=== PATIENT | female | born 1965 | race African-American/Black ===

== ENCOUNTER → 2016-06-28 | Outpatient (CLI) | payer OTHER | LOC: CCC 09:07 | DX: R73.03 Prediabetes (principal) | CPT/HCPCS: 36415; 83036 ==

== ENCOUNTER 2016-09-17 09:29 | Emergency (ER) | payer SELFPAY ==
[2016-09-17 09:38] VITALS: BP 126/80
--- NOTE | 2016-09-17 10:04 | ER Document Report ---
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 She does not do to go to work until day after tomorrow. No saddle anesthesia. No radiculopathy. No fever or chills. No IV drug use. No rash. She sees Dr. Salomon about her back. Associated Symptoms: None Exacerbated by: Movement - bending forward Relieved by: Denies Similar symptoms previously: Yes Recently seen / treated by doctor: No - ROS ROS below otherwise negative: Yes Systems Reviewed and Negative: Yes All other systems reviewed and negative - REPRODUCTIVE LMP: merry Reproductive: DENIES: : - DERM Skin Color: Normal Past Medical History - General Information source: Patient - Social History Smoking Status: Unknown if Ever Smoked Frequency of alcohol use: None Drug Abuse: None Lives with: Family Family History: Reviewed & Not Pertinent Patient has suicidal ideation: No Patient has homicidal ideation: No - Past Medical History Cardiac Medical History: Reports: Hx Hypertension Pulmonary Medical History: Reports: Hx Bronchitis Renal/ Medical History: Denies: Hx Peritoneal Dialysis Past Surgical History: Reports: Hx Tubal Ligation - Immunizations Hx Diphtheria, Pertussis, Tetanus Vaccination: Yes Vertical Provider Document - CONSTITUTIONAL Agree With Documented VS: Yes Exam Limitations: No Limitations - INFECTION CONTROL TRAVEL OUTSIDE OF THE [place] IN LAST 30 DAYS: No - HEENT HEENT: Atraumatic, Normal ENT Exam, Normocephalic - NECK Neck: Supple - RESPIRATORY Respiratory: Breath Sounds Normal, No Respiratory Distress O2 Sat by Pulse Oximetry: 98 - CARDIOVASCULAR Cardiovascular: Regular Rate, Regular Rhythm - GI/ABDOMEN Gastrointestinal: Abdomen Soft, Abdomen Non-Tender - MUSCULOSKELETAL/EXTREMETIES Musculoskeletal/Extremeties: MAEW, FROM, Tender - lumbosacral muscles bilateral - NEURO Level of Consciousness: Awake, Alert Motor/Sensory: No Motor Deficit, No Sensory Deficit Deep Tendon Reflexes: 1+ - teresa ankle and patellar - DERM Integumentary: Warm, Dry, No Rash Course - Vital Signs Vital signs: Temp Pulse Resp BP Pulse Ox 97.8 F 78 16 126/80 H 98 09/17/16 09:35 09/17/16 09:35 09/17/16 09:35 09/17/16 09:35 09/17/16 09:35 Discharge - Discharge Clinical Impression: Low back strain Qualifiers: Encounter type: initial encounter Qualified Code(s): S39.012A - Strain of muscle, fascia and tendon of lower back, initial encounter Condition: Good Disposition: HOME, SELF-CARE Instructions: Low Back Pain ([facility]), Muscle Strain ([facility]), Warm Packs ([facility]), Muscle Relaxers ([facility]), Ultram ([facility]), Anti-Inflammatory Medication ([facility]) Additional Instructions: warm compress see your doctor for follow up to er if worse sitting will make it worse Please complete the patient satisfaction survey if you get one, and return it.. If you do not receive a survey, then you can go to the [facility] website, [email or web address] and place your comments about your very good care. Thank you very much. It was a pleasure being your medical provider today. Prescriptions: Ibuprofen [Motrin 800 mg Tablet] 800 mg PO Q8HP PRN #30 tablet PRN Reason: Cyclobenzaprine HCl [Flexeril 10 Mg Tablet] 10 mg PO TIDP PRN #20 tablet PRN Reason: Tramadol HCl [Ultram 50 mg Tablet] 50 mg PO ASDIR PRN #20 tablet PRN Reason: Referrals: JUAN SALOMON MD [Primary Care Provider] - Follow up as needed
[2016-09-17] MEDS ORDERED: IBUPROFEN 800 MG TABLET PO ONE (10:10)
== END 2016-09-17 10:21 | disposition home or self-care (01) ==
LOC: ER 09:29
DX: S39.012A Strain of muscle, fascia and tendon of lower back, initial encounter (principal); X58.XXXA Exposure to other specified factors, initial encounter; I10 Essential (primary) hypertension
CPT/HCPCS: 99283

== ENCOUNTER 2016-11-30 20:24 | Emergency (ER) | payer SELFPAY ==
[2016-11-30] MEDS ORDERED: IBUPROFEN 600 MG TABLET PO ONE (22:27)
--- NOTE | 2016-11-30 22:27 | ER Document Report ---
ED ENT - General Chief Complaint: Foreign Body in Ear Stated Complaint: EAR INJURY Time Seen by Provider: 11/30/16 22:06 Mode of Arrival: Ambulatory Information source: Patient TRAVEL OUTSIDE OF THE [place] IN LAST 30 DAYS: No - HPI Patient complains to provider of: Ear problem Onset: This evening Onset/Duration: Sudden Quality of pain: Achy Severity: Mild Pain Level: 1 Location of pain: Ears Associated symptoms: None Similar symptoms previously: No Recently seen / treated by doctor: No Notes: Patient is a 51-year-old female presenting to the emergency room today complaining of irritation to her right ear, states she felt a bug fly in there earlier, she was able to get the bug out but is concerned that some of its still in her ear and she continues to have irritation, she denies any fevers, no other symptoms - Related Data Allergies/Adverse Reactions: lisinopril Allergy (Verified 11/30/16 20:44) Angioneurotic Edema Past Medical History - General Information source: Patient - Social History Smoking Status: Current Every Day Smoker Family History: Reviewed & Not Pertinent - Past Medical History Cardiac Medical History: Reports: Hx Hypertension Pulmonary Medical History: Reports: Hx Bronchitis Renal/ Medical History: Denies: Hx Peritoneal Dialysis Past Surgical History: Reports: Hx Hysterectomy, Hx Tubal Ligation - Immunizations Hx Diphtheria, Pertussis, Tetanus Vaccination: Yes Review of Systems - Review of Systems Constitutional: No symptoms reported EENT: See HPI Cardiovascular: No symptoms reported Respiratory: No symptoms reported Gastrointestinal: No symptoms reported Genitourinary: No symptoms reported Female Genitourinary: No symptoms reported Musculoskeletal: No symptoms reported Skin: No symptoms reported Hematologic/Lymphatic: No symptoms reported Neurological/Psychological: No symptoms reported -: Yes All other systems reviewed and negative Physical Exam - Vital signs Vitals: Temp Pulse Resp BP Pulse Ox 98.5 F 83 20 111/69 98 11/30/16 20:43 11/30/16 20:43 11/30/16 20:43 11/30/16 20:43 11/30/16 20:43 - Notes Notes: - General General appearance: Appears well, Alert In distress: None - HEENT Head: Normocephalic, Atraumatic Eyes: Normal Conjunctiva: Normal Extraocular movements intact: Yes Eyelashes: Normal Pupils: PERRL - Respiratory Respiratory status: No respiratory distress - Cardiovascular Rhythm: Regular - Abdominal Inspection: Normal - Back Back: Normal - Extremities General upper extremity: Normal inspection General lower extremity: Normal inspection - Neurological Neuro grossly intact: Yes Orientation: AAOx4 Anders Coma Scale Eye Opening: Spontaneous [place] Coma Scale Verbal: Oriented Anders Coma Scale Motor: Obeys Commands Anders Coma Scale Total: 15 - Psychological Associated symptoms: Normal affect, Normal mood - Skin Skin Temperature: Warm Skin Moisture: Dry Skin Color: Normal - HEENT Ears: Normal, Other - No foreign body External canal: Normal Tympanic membrane: Normal Course - Re-evaluation Re-evalutation: 11/30/16 23:45 Physical exam findings are unremarkable, patient must have gotten the entirety of the bug out when she did so earlier, she was advised to take Tylenol or Motrin for pain, follow-up with a primary care provider or return if symptoms worsen, patient acknowledges understanding and agreement with this plan - Vital Signs Vital signs: Temp Pulse Resp BP Pulse Ox 98.1 F 84 16 114/72 99 11/30/16 22:35 11/30/16 22:35 11/30/16 22:35 11/30/16 22:35 11/30/16 22:35 Discharge - Discharge Clinical Impression: Ear pain, right Condition: Stable Disposition: HOME, SELF-CARE Instructions: Foreign Object in the Ear ([facility]) Additional Instructions: Follow up with your primary care provider in one to 2 days. Return to the emergency room immediately if symptoms worsen or any additional concerns. Referrals: [facility] [Primary Care Provider] - Follow up as needed
[2016-11-30 22:42] VITALS: BP 114/72
== END 2016-11-30 22:35 | disposition home or self-care (01) ==
LOC: ER 20:24
DX: H92.01 Otalgia, right ear (principal); F17.200 Nicotine dependence, unspecified, uncomplicated; Z90.710 Acquired absence of both cervix and uterus
CPT/HCPCS: 99283

== ENCOUNTER 2017-04-25 14:49 | Emergency (ER) | payer SELFPAY ==
[2017-04-25 15:13] VITALS: BP 113/80
--- NOTE | 2017-04-25 15:30 | ER Document Report ---
HPI - HPI Pain Level: 4 Notes: Patient is a 51-year-old female who presents to the ED complaining of nasal congestion/discharge, dry nonproductive cough, fever, body ache 3 days. Patient states that she is still eating and drinking without difficulties, but does have a decreased p.o. intake. She is still urinating normally having normal bowel movements. Patient has been using some delm-crw-lzohgst meds for symptoms. She denies any significant past medical history including cardiopulmonary history and immunocompromised conditions. + smoker. Patient denies any IV drug use. Patient requesting work note. Denies any headache, neck pain, sore throat, chest pain, palpitations, syncope, shortness of breath, wheeze, dyspnea, abdominal pain, nausea/vomiting/diarrhea, urinary retention, dysuria, hematuria, or rash. - ROS Systems Reviewed and Negative: Yes All other systems reviewed and negative - REPRODUCTIVE Reproductive: DENIES: : Past Medical History - Social History Smoking Status: Never Smoker Family History: Reviewed & Not Pertinent - Past Medical History Cardiac Medical History: Reports: Hx Hypertension Pulmonary Medical History: Reports: Hx Bronchitis Renal/ Medical History: Denies: Hx Peritoneal Dialysis Past Surgical History: Reports: Hx Hysterectomy, Hx Tubal Ligation - Immunizations Hx Diphtheria, Pertussis, Tetanus Vaccination: Yes Vertical Provider Document - CONSTITUTIONAL Agree With Documented VS: Yes Notes: PHYSICAL EXAMINATION: GENERAL: Well-appearing, well-nourished and in no acute distress. A&Ox4. Answers questions appropriately. Moves comfortably w/o notable distress HEAD: Atraumatic, normocephalic. EYES: Pupils equal round and reactive to light, extraocular movements intact, sclera anicteric, conjunctiva are normal. ENT: EAC clear b/l. TM's intact b/l without erythema, fluid, or perforation. Nares patent and with clear discharge. oropharynx no erythema without exudates. No tonsilar hypertrophy without erythema or exudate. No palatine shift. Uvula midline. No tongue protrusion. No drooling, hoarseness, or airway compromise. Moist mucous membranes. No sinus tenderness. NECK: Normal range of motion, supple without lymphadenopathy. No rigidity/ meningismus. LUNGS: Breath sounds clear to auscultation bilaterally and equal. No wheezes rales or rhonchi. No retractions HEART: Regular rate and rhythm without murmurs, rubs, gallops. ABDOMEN: Soft, nontender, nondistended abdomen. No guarding, no rebound. No masses appreciated. Normal bowel sounds present. No CVA tenderness bilaterally. NEUROLOGICAL: Normal speech, normal gait. Normal sensory, motor exams PSYCH: Normal mood, normal affect. SKIN: Warm, Dry, normal turgor, no rashes or lesions noted. - INFECTION CONTROL TRAVEL OUTSIDE OF THE [place] IN LAST 30 DAYS: No - RESPIRATORY O2 Sat by Pulse Oximetry: 95 Course - Re-evaluation Re-evalutation: 04/25/17 15:27 Patient is an afebrile, well-hydrated, 26-year-old female who presents to the ED with acute URI, suspect influenza. Vitals are stable. PE is otherwise unremarkable. No labs or imaging warranted at this time based on H&P. Patient has no significant cardiopulmonary or immunocompromised medical conditions. Patient's lungs are clear to auscultation bilaterally without tachycardia, hypoxia, or tachypnea. Patient is tolerating p.o. without any difficulties. Thoroughly reviewed the risks, benefits, and side effects of Tamiflu. Patient also does not have any health insurance. Patient declines Tamiflu at this time. I will send her home with [facility]. Patient requesting an inhaler although she has never been officially diagnosed with asthma (chronic smoker). Low suspicion for any meningitis, sepsis, peritonsillar/pharyngeal abscess, respiratory compromise, severe dehydration, or other emergent systemic condition at this time. Patient is aware this condition can change from initial presentation and she needs to monitor symptoms closely. Conservative measures otherwise for symptoms. Recheck with your PCM in 3-5 days. Return to the ED with any worsening/concerning symptoms otherwise as reviewed in discharge. Patient is in agreement. - Vital Signs Vital signs: Temp Pulse Resp BP Pulse Ox 100.2 F 86 24 H 113/80 95 04/25/17 15:11 04/25/17 15:11 04/25/17 15:11 04/25/17 15:11 04/25/17 15:11 Discharge - Discharge Clinical Impression: Acute URI, Influenza Condition: Stable Disposition: HOME, SELF-CARE Instructions: Influenza ([facility]), Upper Respiratory Illness ([facility]) Additional Instructions: Maintain adequate fluid intake Take meds as directed tylenol/ibuprofen as needed over the counter cold medication as needed for symptoms Humidified air may help Wash your hands regularly Wear a mask when coughing F/u: with your PCM in 3-5 days for a recheck Return to the ED with any fever, worsening pain, chest pain, palpitations, syncope, worsening ARCHULETA, neck pain/stiffness, shortness of breath, wheezing, drooling, trouble swallowing/breathing, abdominal pain, n/v/d, rash, or worsening/concerning symptoms otherwise. Prescriptions: Benzonatate [Tessalon Perle 100 mg Capsule] 100 mg PO Q8HP PRN #15 cap PRN Reason: Albuterol Sulfate [Proair HFA Inhalation Aerosol 8.5 gm MDI] 2 puff IH Q4H PRN # 1 mdi PRN Reason: Forms: Smoking Cessation Education Referrals: [facility] [Provider Group] - Follow up in 3-5 days
== END 2017-04-25 15:48 | disposition home or self-care (01) ==
LOC: ER 14:49
DX: J11.1 Influenza due to unidentified influenza virus with other respiratory manifestations (principal); I10 Essential (primary) hypertension; F17.200 Nicotine dependence, unspecified, uncomplicated; Z90.710 Acquired absence of both cervix and uterus
CPT/HCPCS: 99283

== ENCOUNTER 2017-09-05 18:35 | Emergency (ER) | payer SELFPAY ==
[2017-09-05 18:45] VITALS: BP 130/85
[2017-09-05] MEDS ORDERED: IBUPROFEN 800 MG TABLET PO ONE (20:18)
--- NOTE | 2017-09-05 20:49 | ER Document Report ---
ED Extremity Problem, Lower - General Chief Complaint: Knee Pain Stated Complaint: LEFT KNEE PAIN Time Seen by Provider: 09/05/17 20:17 Mode of Arrival: Wheelchair Information source: Patient Notes: 51-year-old female presents to ED for complaint of sharp shooting pain to the left knee. She states the pain started 2 weeks ago she does not really know what she did to it. 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 Is alert and oriented respirations regular and unlabored speaking in full sentences patient does not bear weight on the right knee. TRAVEL OUTSIDE OF THE [place] IN LAST 30 DAYS: No - HPI Patient complains to provider of: Pain. No: Injury, Swelling Location: Knee Occurred: Other - 2 weeks Onset/Duration: Intermittent Quality of pain: Pressure, Sharp Severity: Moderate Pain Level: 4 Context: Other - Patient does not remember any injury she has just had steadily increasing pain to the left knee Recent injury: No Associated symptoms: Painful ambulation Exacerbated by: Movement, Walking Relieved by: Nothing - Related Data Allergies/Adverse Reactions: lisinopril Allergy (Verified 04/25/17 14:53) Angioneurotic Edema Past Medical History - General Information source: Patient - Social History Smoking Status: Current Every Day Smoker Cigarette use (# per day): Yes - Pack per day Chew tobacco use (# tins/day): No Smoking Education Provided: Yes - 4 minutes Frequency of alcohol use: Rare Drug Abuse: None Occupation: Housekeeping Lives with: Alone Family History: Reviewed & Not Pertinent Patient has suicidal ideation: No Patient has homicidal ideation: No - Past Medical History Cardiac Medical History: Reports: Hx Hypertension Pulmonary Medical History: Reports: Hx Bronchitis EENT Medical History: Reports: None Neurological Medical History: Reports: None Endocrine Medical History: Reports: None Renal/ Medical History: Reports: Hx Ovarian Cysts Malignancy Medical History: Reports: None GI Medical History: Reports: None Musculoskeltal Medical History: Reports Hx Musculoskeletal Deformity, Reports Hx Musculoskeletal Trauma Skin Medical History: Reports None Psychiatric Medical History: Reports: None Traumatic Medical History: Reports: None Infectious Medical History: Reports: None Past Surgical History: Reports: Hx Section, Hx Gynecologic Surgery - Right salpingo-oophorectomy, Hx Tubal Ligation - Immunizations Hx Diphtheria, Pertussis, Tetanus Vaccination: Yes Review of Systems - Review of Systems Constitutional: No symptoms reported EENT: No symptoms reported Cardiovascular: No symptoms reported Respiratory: No symptoms reported Gastrointestinal: No symptoms reported Genitourinary: No symptoms reported Female Genitourinary: No symptoms reported Musculoskeletal: Joint pain - Left knee pain and swelling, Joint swelling, Ankle swelling Skin: No symptoms reported Hematologic/Lymphatic: No symptoms reported Neurological/Psychological: No symptoms reported -: Yes All other systems reviewed and negative Physical Exam - Vital signs Vitals: Temp Pulse Resp BP Pulse Ox 99.0 F 84 16 130/85 H 97 09/05/17 18:43 09/05/17 18:43 09/05/17 18:43 09/05/17 18:43 09/05/17 18:43 Interpretation: Normal - General General appearance: Appears well, Alert - HEENT Head: Normocephalic, Atraumatic Eyes: Normal Pupils: PERRL - Respiratory Respiratory status: No respiratory distress Chest status: Nontender Breath sounds: Normal Chest palpation: Normal - Cardiovascular Rhythm: Regular Heart sounds: Normal auscultation Murmur: No - Abdominal Inspection: Normal Distension: No distension Bowel sounds: Normal Tenderness: Nontender Organomegaly: No organomegaly - Back Back: Normal, Nontender - Extremities General upper extremity: Normal inspection, Nontender, Normal color, Normal ROM , Normal temperature General lower extremity: Normal inspection, Normal color, Normal temperature Knee: Tender, Pain with ROM, Patellar tendon intact, Tender joint line. No: Abrasion, Deformity, Dislocation, Drawer's test instability, Ecchymosis, Instability, Joint effusion, Laceration, Laxity with valgus stress, Laxity with varus stress, Popliteal fossa tender - Neurological Neuro grossly intact: Yes Cognition: Normal Orientation: AAOx4 Anders Coma Scale Eye Opening: Spontaneous [place] Coma Scale Verbal: Oriented Anders Coma Scale Motor: Obeys Commands Anders Coma Scale Total: 15 Speech: Normal Motor strength normal: LUE, RUE, LLE, RLE Sensory: Normal - Psychological Associated symptoms: Normal affect, Normal mood - Skin Skin Temperature: Warm Skin Moisture: Dry Skin Color: Normal Course - Re-evaluation Re-evalutation: 09/05/17 21:15 Discussed x-ray with patient and written report of x-ray given to patient. Patient was instructed to follow-up with primary doctor and orthopedics. Grady wrap was applied to the knee. Patient was given instructions on ice packs elevation and ibuprofen. - Vital Signs Vital signs: Temp Pulse Resp BP Pulse Ox 99.0 F 84 16 130/85 H 97 09/05/17 18:43 09/05/17 18:43 09/05/17 18:43 09/05/17 18:43 09/05/17 18:43 - Diagnostic Test Radiology reviewed: Image reviewed, Reports reviewed Procedures - Immobilization Left Knee Time completed: 21:19 Immobilizer type: Grady wrap Performed by: PCT Post-Proc Neuro Vasc Exam: Normal Alignment checked and good: Yes Discharge - Discharge Clinical Impression: Left knee pain Qualifiers: Chronicity: acute Qualified Code(s): M25.562 - Pain in left knee Condition: Stable Disposition: HOME, SELF-CARE Instructions: Knee Exercise Program ([facility]), Family Physicians / Practices Additional Instructions: You were seen today for complaint of pain in your left knee with no injury and no fall. GRADY WRAP: A compression dressing (grady wrap) has been placed. This helps hold the area still. It limits swelling and internal bleeding. The wrap should be comfortably snug -- not tight. You should feel a sense of pressure, but not severe pain under the wrap. Unless the physician tells you otherwise, you can adjust the wrap for comfort. If the wrap causes symptoms suggesting it's too tight -- uncomfortable pressure, swelling or discoloration beyond the wrap, numbness, or severe pain - - you must loosen the wrap. If these symptoms don't resolve promptly, return for re-evaluation. ICE & ELEVATION: Apply ice packs frequently against the painful area. Many different schedules are recommended, such as "20 minutes on, 20 minutes off" or "one hour ice, two hours rest." If you need to work, you may need to go longer between ice treatments. You should plan to have the area ice packed AT LEAST one- fourth of the time. The ice should be applied over the wrap, tape, or splint, or over a layer of cloth -- not directly against the skin. Some ice bags have a built-in cloth and can be put directly on the skin. Your injured part should be elevated as much as possible over the next 48 hours. Try to keep the injury above the level of the heart. Avoid use of the injured area. Elevation and rest will decrease the swelling. USE OF EXHP-NMR-TUHNCHK IBUPROFEN: Ibuprofen (Advil, Nuprin, Medipren, Motrin IB) is a medication for fever and pain control. In addition, it has anti- inflammatory effects which may be beneficial, especially in the treatment of injuries. It's best to take ibuprofen with food. Persons with ulcer disease or allergy to aspirin should notify their physician of this before taking ibuprofen. Ibuprofen can be given every four to six hours, for a total of four doses daily. Age Pain or fever dose Antiinflammatory dose 6-8 yr 200 mg (1 tab) 200 mg (1 tab) 9-11 yr 200 mg (1 tab) 200-400 mg (1-2 tab) 11-14 yr 200-400 mg (1-2 tab) 400 mg (2 tab) 15-adult 400 mg (2 tab) 600 mg (3 tab) FOLLOW-UP CARE: If you have been referred to a physician for follow-up care, call the physician s office for an appointment as you were instructed or within the next two days. If you experience worsening or a significant change in your symptoms, notify the physician immediately or return to the Emergency Department at any time for re-evaluation. Forms: Elevated Blood Pressure, Smoking Cessation Education, Return to Work Referrals: NICOLAS HARRISON MD [ACTIVE STAFF] - Follow up as needed
--- NOTE | 2017-09-05 20:59 | RADIOLOGY REPORT (SQ) ---
EXAM DESCRIPTION: KNEE LEFT 4 VIEW COMPLETED DATE/TIME: 09/05/2017 8:36 pm REASON FOR STUDY: pain swelling COMPARISON: None. NUMBER OF VIEWS: Four views. TECHNIQUE: AP, lateral, and both oblique radiographic images acquired of the left knee. LIMITATIONS: None. FINDINGS: MINERALIZATION: Normal. BONES: No acute fracture or dislocation. No worrisome bone lesions. Joint space narrowing with small osteophytes. JOINT: No effusion. No chondrocalcinosis. OTHER: No other significant finding. IMPRESSION: DEGENERATIVE CHANGES. NO ACUTE FINDINGS. TECHNICAL DOCUMENTATION: JOB ID: [id number] [employer]- All Rights Reserved Reading location - IP/workstation name: [email or web address]
== END 2017-09-05 21:34 | disposition home or self-care (01) ==
LOC: ER 18:35
DX: M25.562 Pain in left knee (principal); M25.473 Effusion, unspecified ankle; I10 Essential (primary) hypertension; F17.210 Nicotine dependence, cigarettes, uncomplicated; Z71.6 Tobacco abuse counseling; Z88.8 Allergy status to other drugs, medicaments and biological substances
CPT/HCPCS: 99283; 99406

== ENCOUNTER 2017-12-31 15:20 | Emergency (ER) | payer SELFPAY ==
[2017-12-31 15:30] VITALS: BP 115/77
[2017-12-31] MEDS ORDERED: ACETAMINOPHEN 325 MG TABLET PO ONE (15:52)
[2017-12-31] MEDS ORDERED: CETIRIZINE 10 MG TABLET PO ONE (15:52)
--- NOTE | 2017-12-31 16:05 | ER Document Report ---
HPI - HPI Patient complains to provider of: Cough, congestion Onset: Other - 10 days Onset/Duration: Persistent Quality of pain: No pain Pain Level: Denies Context: Patient presents complaining of cough and congestion for the past 10 days. Patient denies any fever. Associated Symptoms: Nonproductive cough, Rhinnorhea. denies: Chest pain, Fever , Headache, Vomiting, Shortness of breath Exacerbated by: Denies Relieved by: Denies Similar symptoms previously: Yes Recently seen / treated by doctor: No - ROS ROS below otherwise negative: Yes Systems Reviewed and Negative: Yes All other systems reviewed and negative - CONSTITUTIONAL Constitutional: DENIES: Fever, Chills - EENT EENT: REPORTS: Nasal Drainage-Clear, Congestion - NEURO Neurology: DENIES: Headache - CARDIOVASCULAR Cardiovascular: DENIES: Chest pain - RESPIRATORY Respiratory: REPORTS: Coughing. DENIES: Trouble Breathing - GASTROINTESTINAL Gastrointestinal: DENIES: Patient vomiting, Diarrhea - REPRODUCTIVE Reproductive: DENIES: : - MUSCULOSKELETAL Musculoskeletal: DENIES: Back Pain, Neck Pain - DERM Skin Color: Normal Skin Problems: None Past Medical History - General Information source: Patient - Social History Smoking Status: Current Every Day Smoker Smoking Education Provided: Yes Frequency of alcohol use: None Drug Abuse: None Occupation: Housekeeping Family History: Reviewed & Not Pertinent - Past Medical History Cardiac Medical History: Reports: Hx Hypertension Pulmonary Medical History: Reports: Hx Bronchitis Renal/ Medical History: Reports: Hx Ovarian Cysts. Denies: Hx Peritoneal Dialysis Musculoskeletal Medical History: Reports Hx Musculoskeletal Deformity, Reports Hx Musculoskeletal Trauma Past Surgical History: Reports: Hx Section, Hx Gynecologic Surgery - Right salpingo-oophorectomy, Hx Tubal Ligation - Immunizations Hx Diphtheria, Pertussis, Tetanus Vaccination: Yes Vertical Provider Document - CONSTITUTIONAL Agree With Documented VS: Yes Exam Limitations: No Limitations General Appearance: WD/WN, No Apparent Distress - INFECTION CONTROL TRAVEL OUTSIDE OF THE [place] IN LAST 30 DAYS: No - HEENT HEENT: Atraumatic, Normocephalic. negative: Pharyngeal Exudate, Pharyngeal Tenderness, Pharyngeal Erythema, Tympanic Membrane Red, Tympanic Membrane Bulging Notes: Clear rhinorrhea, swollen nasal mucosa - NECK Neck: Normal Inspection, Supple. negative: Lymphadenopathy-Left, Lymphadenopathy-Right - RESPIRATORY Respiratory: No Respiratory Distress, Chest Non-Tender, Rhonchi - CARDIOVASCULAR Cardiovascular: Regular Rate, Regular Rhythm, No Murmur - BACK Back: Normal Inspection - MUSCULOSKELETAL/EXTREMETIES Musculoskeletal/Extremeties: MAEW - NEURO Level of Consciousness: Awake, Alert, Appropriate Motor/Sensory: No Motor Deficit - DERM Integumentary: Warm, Dry, No Rash Course - Re-evaluation Re-evalutation: 12/31/17 16:20 Patient's respirations even unlabored, patient nontoxic in appearance with stable vital signs. No concern for pneumonia. Good return precautions given. Discussed management of congestion symptoms with cawn-efy-arqoass medications. - Vital Signs Vital signs: Temp Pulse Resp BP Pulse Ox 98.6 F 91 16 115/77 98 12/31/17 15:29 12/31/17 15:29 12/31/17 15:29 12/31/17 15:29 12/31/17 15:29 - Diagnostic Test Radiology reviewed: Pending, Image reviewed Discharge - Discharge Clinical Impression: Sinus congestion Upper respiratory infection Qualifiers: URI type: unspecified URI Qualified Code(s): J06.9 - Acute upper respiratory infection, unspecified Condition: Stable Disposition: HOME, SELF-CARE Instructions: Upper Respiratory Illness ([facility]) Additional Instructions: Return immediately for any new or worsening symptoms Followup with your primary care provider, call tomorrow to make a followup appointment Prescriptions: Albuterol Sulfate [Ventolin Hfa] 2 puff IH Q4HP PRN #17 gm PRN Reason: Cetirizine HCl [Zyrtec 10 mg Tablet] 1 tab PO DAILY #30 tablet Fluticasone Propionate [Flonase Nasal [place] 50 Mcg/[place] 16 gm] 2 spray NASL DAILY #1 bottle Forms: Smoking Cessation Education, Return to Work Referrals: [facility] [Provider Group] - Follow up as needed
--- NOTE | 2017-12-31 16:30 | RADIOLOGY REPORT (SQ) ---
EXAM DESCRIPTION: CHEST 2 VIEWS COMPLETED DATE/TIME: 12/31/2017 4:11 pm REASON FOR STUDY: cough COMPARISON: None. EXAM PARAMETERS: NUMBER OF VIEWS: two views TECHNIQUE: Digital Frontal and Lateral radiographic views of the chest acquired. RADIATION DOSE: NA LIMITATIONS: none FINDINGS: LUNGS AND PLEURA: No opacities, masses or pneumothorax. No pleural effusion. MEDIASTINUM AND HILAR STRUCTURES: No masses or contour abnormalities. HEART AND VASCULAR STRUCTURES: Heart size upper limits normal. No evidence for failure. BONES: No acute findings. HARDWARE: None in the chest. OTHER: No other significant finding. IMPRESSION: NO ACUTE RADIOGRAPHIC FINDING IN THE CHEST. TECHNICAL DOCUMENTATION: JOB ID: [id number] [email or web address]- All Rights Reserved Reading location - IP/workstation name: [email or web address]
== END 2017-12-31 16:27 | disposition home or self-care (01) ==
LOC: ER 15:20
DX: J06.9 Acute upper respiratory infection, unspecified (principal); R09.81 Nasal congestion; R05 Cough; J34.89 Other specified disorders of nose and nasal sinuses; F17.200 Nicotine dependence, unspecified, uncomplicated; I10 Essential (primary) hypertension
CPT/HCPCS: 71046; 99283

== ENCOUNTER → 2018-02-17 | Outpatient (CLI) | payer OTHER ==
--- NOTE | 2018-02-17 17:28 | XCELERA REPORT ---
[address] [place] [facility] [address] Lower Extremity Venous Evaluation Procedure: Color flow and duplex imaging of the veins of the left lower extremity as well as the right Common Femoral vein. Right Sided Venous Evaluation The right common femoral vein is fully compressible. Spontaneous and phasic flow is present in the right common femoral vein. Left Sided Venous Evaluation Normal vessel filling wall to wall, compression and augmentation as well as Colour flow down to the infrageniculate veins. Interpretation Summary No duplex evidence of DVT or obstruction in the left lower extremity nor in the right Common Femoral vein. Name: DEANA MURRAY Aliyah Age: 52 yrs Gender: Female : 1965 Patient Status: Outpatient Patient Location: Study Date: 02/17/2018 12:12 PM Reason For Study: LLE SWELLING Ordering Physician: [facility] Performed By: Renato Mendoza : [facility] > Jani Archer
== END ==
LOC: SP 11:47
DX: R22.42 Localized swelling, mass and lump, left lower limb (principal)
CPT/HCPCS: 93971

== ENCOUNTER → 2018-04-23 | Outpatient (CLI) | payer MEDICAID ==
--- NOTE | 2018-04-23 11:11 | EKG REPORT ---
SEVERITY:- BORDERLINE ECG - SINUS RHYTHM BORDERLINE T ABNORMALITIES, DIFFUSE LEADS : Confirmed by: Omkar Dey 23-Apr-2018 11:10:50
[2018-04-23 11:36] LABS: APPEARANCE,URINE CLEAR; BILIRUBIN,URINE NEGATIVE (NEGATIVE); COLOR,URINE YELLOW; GLUCOSE, URINE NEGATIVE (NEGATIVE); KETONES,URINE NEGATIVE (NEGATIVE); LEUKOCYTE ESTERASE,URINE NEGATIVE (NEGATIVE); NITRITE,URINE NEGATIVE (NEGATIVE); PROTEIN,URINE NEGATIVE (NEGATIVE)
[2018-04-23 11:37] LABS: ABSOLUTE BASOPHILS # (AUTO) 0.1 10^3/uL (0.0-0.2); ABSOLUTE EOSINOPHILS # (AUTO) 0.3 10^3/uL (0.0-0.6); ABSOLUTE LYMPHOCYTES (AUTO) 2.8 10^3/uL (0.5-4.7); ABSOLUTE MONOCYTES (AUTO) 0.7 10^3/uL (0.1-1.4); ABSOLUTE NEUT (AUTO) 5.4 10^3/uL (1.7-8.2); BASOPHILS % (AUTO) 0.9 % (0-2); EOSINOPHILS % (AUTO) 2.8 % (0-6); HEMATOCRIT 39.7 % (36.0-47.0); LYMPHOCYTES % (AUTO) 30.2 % (13-45); MEAN CORPUSCULAR HEMOGLOBIN 26.7 pg (27.0-33.4); MEAN CORPUSCULAR HGB CONC 35.3 g/dL (32.0-36.0); MEAN CORPUSCULAR VOLUME 76 fl (80-97); MONOCYTES % (AUTO) 7.7 % (3-13); PLATELET COUNT 223 10^3/uL (150-450); RED BLOOD COUNT 5.26 10^6/uL (3.72-5.28); RED CELL DISTRIBUTION WIDTH 13.6 % (11.5-14.0); SEGMENTED NEUTROPHILS % (AUTO) 58.4 % (42-78); TOTAL CELLS COUNTED % (AUTO) 100 %; WHITE BLOOD COUNT 9.2 10^3/uL (4.0-10.5)
[2018-04-23 11:49] LABS: ANION GAP 11 (5-19); BLOOD UREA NITROGEN 7 mg/dL (7-20); CALCIUM 9.4 mg/dL (8.4-10.2); CARBON DIOXIDE 29 mmol/L (22-30); CHLORIDE 101 mmol/L (98-107); GLUCOSE 100 mg/dL (75-110); POTASSIUM 3.4 mmol/L (3.6-5.0); SODIUM 141.3 mmol/L (137-145)
--- NOTE | 2018-04-23 13:57 | RADIOLOGY REPORT (SQ) ---
EXAM DESCRIPTION: CHEST PA/LATERAL COMPLETED DATE/TIME: 04/23/2018 10:48 am REASON FOR STUDY: PRE-OP COMPARISON: 12/31/2017 EXAM PARAMETERS: NUMBER OF VIEWS: two views TECHNIQUE: Digital Frontal and Lateral radiographic views of the chest acquired. RADIATION DOSE: NA LIMITATIONS: none FINDINGS: LUNGS AND PLEURA: No opacities, masses or pneumothorax. No pleural effusion. MEDIASTINUM AND HILAR STRUCTURES: No masses or contour abnormalities. HEART AND VASCULAR STRUCTURES: Heart normal size. No evidence for failure. BONES: No acute findings. HARDWARE: None in the chest. OTHER: No other significant finding. IMPRESSION: NO SIGNIFICANT RADIOGRAPHIC FINDING IN THE CHEST. TECHNICAL DOCUMENTATION: JOB ID: [id number] [employer]- All Rights Reserved Reading location - IP/workstation name: [email or web address]
== END ==
LOC: OD 10:16
PROVIDERS: ATTEND Orthopaedic Surgery
DX: Z01.810 Encounter for preprocedural cardiovascular examination (principal); Z01.812 Encounter for preprocedural laboratory examination; Z01.818 Encounter for other preprocedural examination
CPT/HCPCS: 36415; 71046; 80048; 81001; 85025; 93005; 93010

== ENCOUNTER 2018-05-11 05:20 | Inpatient (IN) | payer MEDICAID ==
[~2018-05-11 05:20] MED LIST: BUPIVACAINE INJ/PF LIPOSOME/PF 266 MG/20 ML SDV INJ PRN; CEFAZOLIN INJ 1 GM VIAL IV PRN; CEFAZOLIN INJ 1 GM VIAL ONE; IBUPROFEN 800 MG in NORMAL SALINE 250 ML IV PRN; LACTATED RINGERS 1000 ML IV PRN; LANSOPRAZOLE 15 MG TAB.RAP.DR ONE; LANSOPRAZOLE 15 MG TAB.RAP.DR PO PRN; LIDOCAINE 0.5% INJ-PF (5 MG/ML) 50 ML SDV SUBCUT PRN; OXYCODONE HCL SR 10 MG TABLET PO ONE; OXYCODONE HCL SR 10 MG TABLET PO PRN; VANCOMYCIN HCL 1,000 MG in DEXTROSE 5%-WATER 250 ML IV PRN
[2018-05-11] MEDS ORDERED: FENTANYL CITRATE INJ/PF 100 MCG/2 ML AMPUL ONE (06:51)
[2018-05-11] MEDS ORDERED: MIDAZOLAM 2 MG/2 ML INJ ONE (06:51)
[2018-05-11] MEDS ORDERED: EPHEDRINE SULFATE INJ 50 MG/1 ML AMPULE ONE (06:51)
[2018-05-11] MEDS ORDERED: PROPOFOL INJ 200 MG/20 ML VIAL IV ONE (06:52)
[2018-05-11] MEDS ORDERED: TRANEXAMIC ACID INJ/PF 1,000 MG/10 ML SDV IV ONE ×2 (06:52→11:00)
[2018-05-11] MEDS ORDERED: THROMBIN (BOVINE) TOPICAL 20000 UNIT VIAL ONE (07:05)
[2018-05-11] MEDS ORDERED: THROMBIN (BOVINE) 5000 UNIT EPITAXIS KIT ONE (07:05)
[2018-05-11] MEDS ORDERED: BUPIVACAINE HCL 0.5%-EPI 1:200000 INJ/PF 30 ML VIAL ONE (07:05)
[2018-05-11] MEDS ORDERED: PROMETHAZINE HCL INJ 25 MG/1 ML VIAL IV PRN ×2 (08:00)
[2018-05-11] MEDS ORDERED: OXYCODONE-ACETAMINOPHEN 5-325 MG TABLET PO PRN ×2 (08:00)
[2018-05-11] MEDS ORDERED: ONDANSETRON HCL INJ/PF 4 MG/2 ML SDV IV PRN ×2 (08:00→08:30)
[2018-05-11] MEDS ORDERED: MORPHINE SULFATE 10 MG/ML INJ IV PRN ×3 (08:00→08:30)
[2018-05-11] MEDS ORDERED: FENTANYL CITRATE INJ/PF 100 MCG/2 ML AMPUL IV PRN ×3 (08:00)
[2018-05-11] MEDS ORDERED: DIPHENHYDRAMINE HCL 50 MG/ML VIAL IV PRN ×2 (08:00→08:30)
[2018-05-11] MEDS ORDERED: MEPERIDINE HCL/PF INJ 25 MG/1 ML DISP.SYRIN IV PRN (08:00)
--- NOTE | 2018-05-11 08:29 | Operative Report ---
Operative Report DATE OF SURGERY: 05/11/18 PREOPERATIVE DIAGNOSIS: Left knee arthritis OPERATION: Left knee arthroplasty SURGEON: NICOLAS HARRISON ANESTHESIA: Spinal TISSUE REMOVED OR ALTERED: Bone to pathology ESTIMATED BLOOD LOSS: 100 PROCEDURE: Implants used: Femur: Cullen triathlon size 5 CR uncemented femur Tibia: 4 uncemented tibia Tibial liner: 9 mm CS insert Patella: 32 mm oval uncemented patella Procedure with the patient supine on the operating table the left the limb is prepped and draped in a sterile fashion. The limb was elevated for exsanguination and the tourniquet inflated to 280 torr. A standard midline median parapatellar approach the knee is taken. Access is gained to the femoral canal through the intercondylar notch. Intramedullary alignment instrumentation used to resect 10 mm of distal femur in 5 of valgus. Sizing guide indicated a size 5 femur. Appropriate cutting jig is then used to fashion anterior posterior and chamfer cuts. A trial reduction femurs performed and this is judged to be adequate. Attention was next turned to the tibia. Using an extra medullary alignment system 9 millimeters was resected off the lateral tibial plateau. This is sized to a size 4 tibia. A trial reduction was now performed with a 5 femur and a for tibia using a 9 millimeters spacer. It is full extension and central patellofemoral tracking. The articular surface the patella was next resected using an oscillating saw. All trial implants were removed. Polymethylmethacrylate is mixed and used to cement the above implants in place. On adequate curing the cement excess cement was removed the tourniquet was deflated hemostasis obtained the wound is then closed in layers using interrupted Vicryl followed by earle. A sterile compr essive dressing was applied and the patient returned to recovery room in satisfactory condition.
[2018-05-11] MEDS ORDERED: MAG HYDROX/AL HYDROX/SIMETH SUSP 30 ML UDCUP PO PRN (08:30)
[2018-05-11] MEDS ORDERED: ONDANSETRON 4 MG TAB.RAPDIS PO PRN (08:30)
[2018-05-11] MEDS ORDERED: ACETAMINOPHEN 325 MG TABLET PO PRN (08:30)
[2018-05-11] MEDS ORDERED: RINGERS SOLUTION,LACTATED 1,000 ML IV PRN (08:30)
[2018-05-11] MEDS ORDERED: ZOLPIDEM TARTRATE 5 MG TABLET PO PRN (08:30)
--- NOTE | 2018-05-11 09:50 | RADIOLOGY REPORT (SQ) ---
EXAM DESCRIPTION: KNEE LEFT 2 VIEWS COMPLETED DATE/TIME: 05/11/2018 9:35 am REASON FOR STUDY: Post OP -Long Cassette in PACU M17.12 UNILATERAL PRIMARY OSTEOARTHRITIS, LEFT KNE E COMPARISON: None. NUMBER OF VIEWS: Left knee portable technique TECHNIQUE: Digital radiographic images of the left knee post-procedure. LIMITATIONS: None. FINDINGS: BONES: No worrisome or unexpected findings post-procedure. DEVICE: Left total knee non cemented replacement with patellar resurfacing SOFT TISSUES: No worrisome findings. Expected postoperative soft tissue changes. IMPRESSION: SATISFACTORY POSTOPERATIVE LEFT KNEE. TECHNICAL DOCUMENTATION: JOB ID: [id number] [employer]- All Rights Reserved Reading location - IP/workstation name: [email or web address]
[2018-05-11] MEDS: MORPHINE SULFATE 10 MG/ML INJ IV PRN ×4 (11:37→21:03)
[2018-05-11] MEDS: SENNOSIDES/DOCUSATE 8.6-50 MG 1 EACH TABLET PO SCH (17:52)
[2018-05-11] MEDS: IBUPROFEN 800 MG in NORMAL SALINE 250 ML IV SCH (17:53)
[2018-05-11] MEDS ORDERED: VANCOMYCIN HCL 1,000 MG in DEXTROSE 5%-WATER 250 ML IV ONE (20:30)
[2018-05-11] MEDS: OXYCODONE HCL SR 10 MG TABLET PO SCH (21:35)
[2018-05-12] MEDS: IBUPROFEN 800 MG in NORMAL SALINE 250 ML IV SCH ×3 (02:30→17:00)
[2018-05-12] MEDS: LANSOPRAZOLE 30 MG TAB.RAP.DR PO SCH (05:30)
--- NOTE | 2018-05-12 07:06 | PDOC DISCHARGE SUMMARY ---
General - Admit/Disc Date/PCP Admission Date/Primary Care Provider: 05/11/18 05:20 LORI BEAN MD Discharge Date: 05/12/18 - Discharge Diagnosis (1) Arthritis of left knee Is this a current diagnosis for this admission?: Yes - Additional Information Resuscitation Status: Full Code Home Medications: Albuterol Sulfate [Ventolin Hfa 8 gm Mdi (1 Mdi/ER Disp)] 2 puff IH Q4HP PRN 05/11/18 Amlodipine Besylate [Norvasc 10 mg Tablet] 10 mg PO DAILY 05/11/18 Cetirizine HCl [Zyrtec 10 mg Tablet] 10 mg PO DAILY 05/11/18 Hydrochlorothiazide [Hydrodiuril 25 mg Tablet] 25 mg PO QAM 05/11/18 Ibuprofen [Motrin 800 mg Tablet] 800 mg PO Q8HP PRN 05/11/18 Tramadol HCl [Ultram] 50 mg PO DAILY 05/11/18 History of Present Illness History of Present Illness: DEANA MURRAY is a 52 year old female Patient is a 52-year-old black female with progressive left knee pain and functional disability second osteoarthritis. Patient is admitted for elective left knee arthroplasty. Hospital Course Hospital Course: Patient is admitted through the operating room where she undergoes an uncomplicated left knee arthroplasty. She is returned to floor in satisfactory condition. Patient makes excellent progress with physical therapy with weightbearing a sterile ambulation. Dressing has to be reinforced several times on the day of surgery. It subsequently changed on postop day 1. Wound is well approximated with earle without any ongoing drainage. Minor pedal edema. Distal neurovascular examination is intact. Physical Exam Vital Signs: Temp Pulse Resp BP Pulse Ox 37.1 C 101 H 17 115/65 97 05/11/18 19:27 05/11/18 19:27 05/11/18 19:27 05/11/18 19:27 05/11/18 19:27 Intake & Output 05/11/18 05/12/18 05/13/18 06:59 06:59 06:59 Intake Total 0 7024 Output Total 100 Balance 0 6924 Weight 108.86 kg 107.3 kg General appearance: PRESENT: no acute distress, well-nourished Head exam: PRESENT: normocephalic Respiratory exam: PRESENT: unlabored Cardiovascular exam: PRESENT: RRR Pulses: PRESENT: +1 pedal pulses bilateral Vascular exam: PRESENT: normal capillary refill GI/Abdominal exam: PRESENT: soft Rectal exam: PRESENT: deferred Musculoskeletal exam: PRESENT: other - Dressing was changed on postop day 1. Wound is well approximated earle. Neurological exam: PRESENT: alert, awake, oriented to person, oriented to place, oriented to time, oriented to situation. ABSENT: motor sensory deficit Results Laboratory Results: 05/11/18 06:10 Impressions: Knee X-Ray 05/11/18 08:31 IMPRESSION: SATISFACTORY POSTOPERATIVE LEFT KNEE. Status: Imported from PACS Qualifiers - * PATIENT BEING DISCHARGED WITH ANY OF THE FOLLOWING DIAGNOSIS: No VTE patient discharged on overlapping Therapy?: Yes Plan Discharge Plan: Patient be discharged home with home health services and DME. Follow-up with Dr. Carr [facility] for surgery in 2 weeks for staple removal. Time Spent: Less than 30 Minutes
[2018-05-12] MEDS: MORPHINE SULFATE 10 MG/ML INJ IV PRN ×3 (07:43→16:57)
[2018-05-12 08:33] LABS: HEMATOCRIT 35.1 % (36.0-47.0); HEMOGLOBIN 12.2 g/dL (12.0-15.5); MEAN CORPUSCULAR HEMOGLOBIN 26.1 pg (27.0-33.4); MEAN CORPUSCULAR HGB CONC 34.7 g/dL (32.0-36.0); MEAN CORPUSCULAR VOLUME 75 fl (80-97); PLATELET COUNT 229 10^3/uL (150-450); RED BLOOD COUNT 4.67 10^6/uL (3.72-5.28); RED CELL DISTRIBUTION WIDTH 13.7 % (11.5-14.0); WHITE BLOOD COUNT 12.6 10^3/uL (4.0-10.5)
[2018-05-12 08:56] LABS: ANION GAP 7 (5-19); BLOOD UREA NITROGEN 8 mg/dL (7-20); CALCIUM 9.4 mg/dL (8.4-10.2); CARBON DIOXIDE 32 mmol/L (22-30); CHLORIDE 101 mmol/L (98-107); GLUCOSE 113 mg/dL (75-110); POTASSIUM 3.7 mmol/L (3.6-5.0); SODIUM 139.9 mmol/L (137-145)
[2018-05-12] MEDS ORDERED: TRANEXAMIC ACID INJ/PF 1,000 MG/10 ML SDV IV ONE (09:00)
[2018-05-12] MEDS: OXYCODONE HCL SR 10 MG TABLET PO SCH ×2 (09:48→21:14)
[2018-05-12] MEDS: SENNOSIDES/DOCUSATE 8.6-50 MG 1 EACH TABLET PO SCH ×2 (09:49→17:00)
[2018-05-12] MEDS: ASPIRIN 81 MG TABLET, ENT COATED PO SCH (09:49)
[2018-05-12] MEDS: PRENATAL VITAMIN W DHA CAPSULE PO SCH (09:49)
[2018-05-12] MEDS: OXYCODONE HCL IR 5 MG TABLET PO PRN (14:17)
[2018-05-12 23:48] VITALS: BP 123/78
[2018-05-13] MEDS: IBUPROFEN 800 MG in NORMAL SALINE 250 ML IV SCH ×2 (01:45→09:00)
[2018-05-13] MEDS: LANSOPRAZOLE 30 MG TAB.RAP.DR PO SCH (05:28)
[2018-05-13] MEDS: OXYCODONE HCL IR 5 MG TABLET PO PRN (05:28)
[2018-05-13 05:35] LABS: HEMATOCRIT 30.7 % (36.0-47.0); HEMOGLOBIN 10.9 g/dL (12.0-15.5); MEAN CORPUSCULAR HEMOGLOBIN 26.6 pg (27.0-33.4); MEAN CORPUSCULAR HGB CONC 35.4 g/dL (32.0-36.0); MEAN CORPUSCULAR VOLUME 75 fl (80-97); PLATELET COUNT 208 10^3/uL (150-450); RED CELL DISTRIBUTION WIDTH 13.7 % (11.5-14.0)
[2018-05-13] MEDS: ASPIRIN 81 MG TABLET, ENT COATED PO SCH (08:59)
[2018-05-13] MEDS: OXYCODONE HCL SR 10 MG TABLET PO SCH (08:59)
[2018-05-13] MEDS: SENNOSIDES/DOCUSATE 8.6-50 MG 1 EACH TABLET PO SCH (08:59)
[2018-05-13] MEDS: PRENATAL VITAMIN W DHA CAPSULE PO SCH (09:00)
== END 2018-05-13 09:38 | disposition home health service (06) | DRG 470 ==
LOC: INOR 05:20 → 4S 09:49
PROVIDERS: ADMIT Orthopaedic Surgery; ATTEND Orthopaedic Surgery
PROC: 0SRD0J9 Replacement of Left Knee Joint with Synthetic Substitute, Cemented, Open Approach (ICD-10-PCS; principal; 2018-05-11 07:30)
DX: M17.12 Unilateral primary osteoarthritis, left knee (principal); I10 Essential (primary) hypertension; E66.9 Obesity, unspecified; M25.561 Pain in right knee; F17.210 Nicotine dependence, cigarettes, uncomplicated; Z82.49 Family history of ischemic heart disease and other diseases of the circulatory system
CPT/HCPCS: 01402; 36415; 80048; 84132; 85027; 88305; 88311; 94799; C1776; J0690; J1741; J2250; J2270; J2405; J2704; J3010; J3370; J3490; J7050; J7060; J7120

== ENCOUNTER 2019-01-12 00:57 | Emergency (ER) | payer MEDICAID, OTHER ==
[2019-01-12 01:35] LABS: ABSOLUTE BASOPHILS # (AUTO) 0.1 10^3/uL (0.0-0.2); ABSOLUTE EOSINOPHILS # (AUTO) 0.2 10^3/uL (0.0-0.6); ABSOLUTE LYMPHOCYTES (AUTO) 3.6 10^3/uL (0.5-4.7); ABSOLUTE MONOCYTES (AUTO) 0.8 10^3/uL (0.1-1.4); ABSOLUTE NEUT (AUTO) 6.9 10^3/uL (1.7-8.2); BASOPHILS % (AUTO) 1.2 % (0-2); EOSINOPHILS % (AUTO) 1.4 % (0-6); HEMATOCRIT 34.8 % (36.0-47.0); HEMOGLOBIN 11.8 g/dL (12.0-15.5); LYMPHOCYTES % (AUTO) 31.1 % (13-45); MEAN CORPUSCULAR HEMOGLOBIN 23.3 pg (27.0-33.4); MEAN CORPUSCULAR HGB CONC 33.9 g/dL (32.0-36.0); MEAN CORPUSCULAR VOLUME 69 fl (80-97); MONOCYTES % (AUTO) 7.3 % (3-13); PLATELET COUNT 303 10^3/uL (150-450); RED BLOOD COUNT 5.08 10^6/uL (3.72-5.28); RED CELL DISTRIBUTION WIDTH 17.2 % (11.5-14.0); TOTAL CELLS COUNTED % (AUTO) 100 %; WHITE BLOOD COUNT 11.7 10^3/uL (4.0-10.5)
[2019-01-12 01:55] LABS: ALBUMIN 3.9 g/dL (3.5-5.0); ALKALINE PHOSPHATASE 66 U/L (38-126); ANION GAP 9 (5-19); ASPARTATE AMINO TRANSFERASE 17 U/L (14-36); BILIRUBIN,DIRECT 0.2 mg/dL (0.0-0.4); BILIRUBIN,TOTAL 0.3 mg/dL (0.2-1.3); BLOOD UREA NITROGEN 5 mg/dL (7-20); CALCIUM 9.7 mg/dL (8.4-10.2); CARBON DIOXIDE 28 mmol/L (22-30); CHLORIDE 107 mmol/L (98-107); GLUCOSE 109 mg/dL (75-110); POTASSIUM 3.1 mmol/L (3.6-5.0); TOTAL PROTEIN 6.9 g/dL (6.3-8.2)
[2019-01-12 02:36] LABS: APPEARANCE,URINE HAZY; BILIRUBIN,URINE NEGATIVE (NEGATIVE); COLOR,URINE YELLOW; GLUCOSE, URINE NEGATIVE (NEGATIVE); KETONES,URINE NEGATIVE (NEGATIVE); LEUKOCYTE ESTERASE,URINE NEGATIVE (NEGATIVE); NITRITE,URINE NEGATIVE (NEGATIVE); PROTEIN,URINE 30 mg/dL (NEGATIVE)
[2019-01-12 02:43] LABS: URINE SPECIFIC GRAVITY 1.018
[2019-01-12] MEDS ORDERED: KETOROLAC TROMETHAMINE INJ/PF 30 MG/1 ML SDV IV ONE (03:51)
--- NOTE | 2019-01-12 03:57 | ER Document Report ---
ED General - General Chief Complaint: Lower Abdominal Pain Stated Complaint: LOWER ABDOMINAL AND BACK PAIN Time Seen by Provider: 01/12/19 03:02 Primary Care Provider: LORI BEAN MD [Primary Care Provider] - Follow up as needed TRAVEL OUTSIDE OF THE [place] IN LAST 30 DAYS: No - HPI Notes: Patient is a 53-year-old female presents emergency department for evaluation of pelvic pain and lower back pain. Symptoms started on Friday. They have been constant since onset. They are worsened by position, nothing seems to make it better. She states she had vaginal bleeding yesterday. She states that she started through menopause about 5 years ago, is unsure as to when her last menstrual period was. She denies any fevers or chills. Normal bowel movements. No urinary symptoms. No other acute complaints or concerns. Denies any bowel or bladder incontinence, saddle anesthesia, focal numbness or weakness. - Related Data Allergies/Adverse Reactions: lisinopril Allergy (Verified 04/23/18 13:14) Angioneurotic Edema Home Medications: Losartan. Potassium 100mg. Furosimide 40mg Past Medical History - General Information source: Patient - Social History Smoking Status: Current Every Day Smoker Chew tobacco use (# tins/day): No Frequency of alcohol use: None Drug Abuse: None Family History: Reviewed & Not Pertinent, CAD, Hypertension Patient has suicidal ideation: No Patient has homicidal ideation: No - Past Medical History Cardiac Medical History: Reports: Hx Hypertension Denies: Hx Atrial Fibrillation, Hx Congestive Heart Failure, Hx Coronary Artery Disease, Hx Heart Attack, Hx Hypercholesterolemia, Hx Peripheral Vascular Disease, Hx Heart Murmur Pulmonary Medical History: Denies: Hx Asthma, Hx Bronchitis, Hx COPD, Hx Sleep Apnea Neurological Medical History: Denies: Hx Cerebrovascular Accident, Hx Seizures Endocrine Medical History: Denies: Hx Hyperthyroidism, Hx Hypothyroidism Renal/ Medical History: Reports: Hx Ovarian Cysts. Denies: Hx Kidney Stones, Hx Peritoneal Dialysis, Hx Pelvic Inflammatory Disease Malignancy Medical History: Denies: Hx Breast Cancer, Hx Cervical Cancer, Hx Ovarian Cancer GI Medical History: Denies: Hx Gastroesophageal Reflux Disease Musculoskeletal Medical History: Reports Hx Arthritis - knees, Denies Hx Fibromyalgia, Denies Hx Muscular Dystrophy, Reports Hx Musculoskeletal Deformity, Reports Hx Musculoskeletal Trauma Psychiatric Medical History: Denies: Hx Bipolar Disorder, Hx Depression, Hx Post Traumatic Stress Disorder Traumatic Medical History: Denies: Hx Fractures Past Surgical History: Reports: Hx Section - x1, Hx Gynecologic Surgery - Right salpingo-oophorectomy, Hx Hysterectomy, Hx Tubal Ligation. Denies: Hx Appendectomy, Hx Bowel Surgery, Hx Cholecystectomy, Hx Coronary Artery Bypass Graft, Hx Gastric Bypass Surgery, Hx Herniorrhaphy, Hx Mastectomy, Hx Tonsillectomy - Immunizations Hx Diphtheria, Pertussis, Tetanus Vaccination: Yes Review of Systems - Review of Systems Constitutional: No symptoms reported EENT: No symptoms reported Cardiovascular: No symptoms reported Respiratory: No symptoms reported Gastrointestinal: See HPI Genitourinary: No symptoms reported Female Genitourinary: See HPI Musculoskeletal: See HPI Skin: No symptoms reported Neurological/Psychological: No symptoms reported Physical Exam - Vital signs Vitals: Temp Pulse Resp BP Pulse Ox 98.6 F 86 17 148/85 H 100 01/12/19 01:08 01/12/19 01:08 01/12/19 01:08 01/12/19 01:08 01/12/19 01:08 - Notes Notes: Vital signs reviewed, please refer to chart. Head is normocephalic, atraumatic. Pupils equal round, reactive to light. Neck is supple without meningismus. Heart is regular rate and rhythm. Lungs are clear to auscultation bilaterally. Abdomen is soft, nontender, normoactive bowel sounds throughout. Extremities without cyanosis, clubbing. Posterior calves are nontender. Peripheral pulses are equal. Skin is warm and dry. Patient is awake, alert, neurological exam is nonfocal. Course - Re-evaluation Re-evalutation: 01/12/19 03:55 Patient presents to the emergency department for evaluation. She had laboratory investigations ordered. I explained to the patient that a thorough and complete evaluation of abnormal vaginal bleeding in a postmenopausal patient would include a pelvic exam and a transvaginal ultrasound. She states that she does not want to wait "not will take too long." I explained to her that postmenopausal vaginal bleeding with cancer until proven otherwise. I explained her the significant importance of getting this followed up and she voiced understanding. She states she will follow-up with her primary care provider this week. She is given a dose of IV Toradol. Otherwise her laboratory investigations are largely unremarkable. She is to return to the ED with worsening or new concerning symptoms of any sort or if she changes her mind regarding a complete work-up. Otherwise she is discharged AGAINST MEDICAL ADVICE.. 01/12/19 03:56 - Vital Signs Vital signs: Temp Pulse Resp BP Pulse Ox 98.6 F 86 17 148/85 H 100 01/12/19 01:08 01/12/19 01:08 01/12/19 01:08 01/12/19 01:08 01/12/19 01:08 - Laboratory Result Diagrams: 01/12/19 01:20 01/12/19 01:20 Laboratory results interpreted by me: 01/12/19 01/12/19 01/12/19 01:20 01:20 02:15 WBC 11.7 H Hgb 11.8 L Hct 34.8 L MCV 69 L MCH 23.3 L RDW 17.2 H Potassium 3.1 L BUN 5 L Urine Protein 30 H Urine Blood MODERATE H Urine Urobilinogen 8.0 H Discharge - Discharge Clinical Impression: Abnormal vaginal bleeding, Pelvic pain Condition: Stable Disposition: HOME, SELF-CARE Instructions: Abdominal Pain ([facility]), Vaginal Bleeding ([facility]) Additional Instructions: You have elected to leave AGAINST MEDICAL ADVICE, before pelvic and ultrasound exams are performed. Please follow-up with your primary care physician in regards to this. You will need to have further testing to rule out a more ser ious cause of your bleeding. If you change your mind regarding work-up, or if you develop new or concerning symptoms of any sort, please return immediately to the emergency department for reevaluation. Referrals: LORI BEAN MD [Primary Care Provider] - Follow up as needed
[2019-01-12 04:23] VITALS: BP 133/90
== END 2019-01-12 04:32 | disposition home or self-care (01) ==
LOC: ER 00:57
DX: N93.8 Other specified abnormal uterine and vaginal bleeding (principal); R10.2 Pelvic and perineal pain; R10.30 Lower abdominal pain, unspecified; M54.9 Dorsalgia, unspecified; F17.200 Nicotine dependence, unspecified, uncomplicated; I10 Essential (primary) hypertension; Z90.710 Acquired absence of both cervix and uterus
CPT/HCPCS: 36415; 83690; 85025; 80053; 81001; J1885; 87086; 96374; 99284

== ENCOUNTER 2019-02-18 00:22 | Observation (INO) | payer MEDICAID ==
[2019-02-18] MEDS ORDERED: ONDANSETRON 4 MG TAB.RAPDIS PO ONE (01:13)
[2019-02-18 02:42] LABS: ALBUMIN 4.5 g/dL (3.5-5.0); ALKALINE PHOSPHATASE 130 U/L (38-126); ANION GAP 13 (5-19); ASPARTATE AMINO TRANSFERASE 20 U/L (14-36); BILIRUBIN,DIRECT 0.3 mg/dL (0.0-0.4); BILIRUBIN,TOTAL 0.8 mg/dL (0.2-1.3); BLOOD UREA NITROGEN 9 mg/dL (7-20); CALCIUM 9.9 mg/dL (8.4-10.2); CARBON DIOXIDE 30 mmol/L (22-30); CHLORIDE 100 mmol/L (98-107); GLUCOSE 195 mg/dL (75-110); POTASSIUM 3.1 mmol/L (3.6-5.0)
[2019-02-18 03:10] LABS: HEMOGLOBIN 13.2 g/dL (12.0-15.5); MEAN CORPUSCULAR HEMOGLOBIN 21.6 pg (27.0-33.4); MEAN CORPUSCULAR HGB CONC 32.9 g/dL (32.0-36.0); MEAN CORPUSCULAR VOLUME 66 fl (80-97); PLATELET COUNT 330 10^3/uL (150-450); RED BLOOD COUNT 6.09 10^6/uL (3.72-5.28); RED CELL DISTRIBUTION WIDTH 18.4 % (11.5-14.0); WHITE BLOOD COUNT 24.5 10^3/uL (4.0-10.5)
[2019-02-18 03:14] LABS: ABSOLUTE LYMPHOCYTES# (MANUAL) 1.5 10^3/uL (0.5-4.7); ABSOLUTE MONOCYTES # (MANUAL) 0.5 10^3/uL (0.1-1.4); BASOPHILS % (MANUAL) 0 % (0-2); EOSINOPHILS % (MANUAL) 0 % (0-6); LYMPHOCYTES % (MANUAL) 6 % (13-45); MONOCYTES % (MANUAL) 2 % (3-13); SEGMENTED NEUTROPHILS % (MAN) 92 % (42-78); TOTAL CELLS COUNTED 100
[2019-02-18 03:17] LABS: ANISOCYTOSIS 2+; HYPOCHROMASIA 1+; POIKILOCYTOSIS SLIGHT; TOXIC GRANULATION 1+
[2019-02-18 03:18] LABS: PLATELET COMMENT ADEQUATE; SCHISTOCYTES SLIGHT; TARGET CELLS SLIGHT
[2019-02-18] MEDS ORDERED: NORMAL SALINE 1000 ML 1,000 ML IV ONE (04:16)
[2019-02-18] MEDS ORDERED: ONDANSETRON HCL INJ/PF 4 MG/2 ML SDV IV ONE ×2 (04:16→06:05)
--- NOTE | 2019-02-18 04:19 | ER Document Report ---
ED GI/ - General Chief Complaint: Nausea/Vomiting Stated Complaint: VOMITING Time Seen by Provider: 02/18/19 04:10 Primary Care Provider: LORI BEAN MD [Primary Care Provider] - Follow up as needed Notes: Patient is a 53-year-old female that comes to the emergency department for chief complaint of lower abdominal pain and vomiting. She states that she started having abdominal pain, she had not had a full bowel movement in almost a week so she took magnesium citrate, she states she started vomiting after this. She states she vomited 5 times. She states she still feels sick. She denies fever, she states she did have a bowel movement which looked normal after coming to the emergency department but she continues to have pain and nausea. She denies blood in the stool. Past medical history of hysterectomy, hypertension. TRAVEL OUTSIDE OF THE [place] IN LAST 30 DAYS: No - Related Data Allergies/Adverse Reactions: lisinopril Allergy (Verified 02/18/19 07:58) Angioneurotic Edema Past Medical History - General Information source: Patient - Social History Smoking Status: Current Every Day Smoker Frequency of alcohol use: None Drug Abuse: None Lives with: Family Family History: Reviewed & Not Pertinent, CAD, Hypertension Patient has suicidal ideation: No Patient has homicidal ideation: No - Past Medical History Cardiac Medical History: Reports: Hx Hypertension Denies: Hx Atrial Fibrillation, Hx Congestive Heart Failure, Hx Coronary Artery Disease, Hx Heart Attack, Hx Hypercholesterolemia, Hx Peripheral Vascular Disease, Hx Heart Murmur Pulmonary Medical History: Denies: Hx Asthma, Hx Bronchitis, Hx COPD, Hx Sleep Apnea Neurological Medical History: Denies: Hx Cerebrovascular Accident, Hx Seizures Endocrine Medical History: Denies: Hx Hyperthyroidism, Hx Hypothyroidism Renal/ Medical History: Reports: Hx Ovarian Cysts. Denies: Hx Kidney Stones, Hx Peritoneal Dialysis, Hx Pelvic Inflammatory Disease Malignancy Medical History: Denies: Hx Breast Cancer, Hx Cervical Cancer, Hx Ovarian Cancer GI Medical History: Denies: Hx Gastroesophageal Reflux Disease Musculoskeletal Medical History: Reports Hx Arthritis - knees, Denies Hx Fibromyalgia, Denies Hx Muscular Dystrophy, Reports Hx Musculoskeletal Deformity, Reports Hx Musculoskeletal Trauma Psychiatric Medical History: Denies: Hx Bipolar Disorder, Hx Depression, Hx Post Traumatic Stress Disorder Traumatic Medical History: Denies: Hx Fractures Past Surgical History: Reports: Hx Section - x1, Hx Gynecologic Surgery - Right salpingo-oophorectomy, Hx Hysterectomy, Hx Tubal Ligation. Denies: Hx Appendectomy, Hx Bowel Surgery, Hx Cholecystectomy, Hx Coronary Artery Bypass Graft, Hx Gastric Bypass Surgery, Hx Herniorrhaphy, Hx Mastectomy, Hx Tonsillectomy - Immunizations Hx Diphtheria, Pertussis, Tetanus Vaccination: Yes Review of Systems - Review of Systems Constitutional: No symptoms reported EENT: No symptoms reported Cardiovascular: No symptoms reported Respiratory: No symptoms reported Gastrointestinal: See HPI Genitourinary: No symptoms reported Female Genitourinary: No symptoms reported Musculoskeletal: No symptoms reported Skin: No symptoms reported Hematologic/Lymphatic: No symptoms reported Neurological/Psychological: No symptoms reported Physical Exam - Vital signs Vitals: Temp Pulse Resp BP Pulse Ox 98.2 F 100 20 141/95 H 95 02/18/19 00:57 02/18/19 00:57 02/18/19 00:57 02/18/19 00:57 02/18/19 00:57 - Notes Notes: GENERAL: Alert, interacts well. No acute distress. HEAD: Normocephalic, atraumatic. EYES: Pupils equal, round, and reactive to light. Extraocular movements intact. ENT: Oral mucosa dry, tongue midline. Oropharynx unremarkable. Airway patent. LUNGS: Clear to auscultation bilaterally, no wheezes, rales, or rhonchi. No respiratory distress. HEART: Regular rate and rhythm. No murmur ABDOMEN: Generalized tenderness over the abdomen, more tender in the mid abdomen, nonspecific, no guarding GENITOURINARY: Deferred EXTREMITIES: Moves all 4 extremities spontaneously. No edema, normal radial and dorsalis pedis pulses bilaterally. No cyanosis. BACK: no cervical, thoracic, lumbar midline tenderness. No saddle anesthesia, normal distal neurovascular exam. Moves all extremities in full range of motion. NEUROLOGICAL: Alert and oriented x3. Normal speech. Cranial nerves II through XII grossly intact. PSYCH: Normal affect, normal mood. SKIN: Warm, dry, normal turgor. No rashes or lesions noted. Course - Re-evaluation Re-evalutation: Patient has tenderness over the abdomen generally especially in the mid abdomen. No guarding however. She is otherwise well-appearing, vital signs unremarkable. CBC shows leukocytosis at almost 24,000, no bandemia. Chemistry shows low potassium at 3.1 probably because of the vomiting/diarrhea. Urinalysis shows dehydration but otherwise unremarkable. I discussed with patient, she does not feel she will be able to tolerate oral contrast even with symptom management, this resulted in CT of the abdomen and pelvis with IV only. Because she did have a recent bowel movement I do have a lower suspicion of obstruction. CT showing colitis. Patient started on antibiotics. She states she might prefer to go home, she asked to be given some the drink, she has been given recent medications and despite this she still vomiting. Now she states she is uncomfortable going home, I discuss with hospitalist for admission for colitis, leukocytosis, intractable vomiting 02/18/19 08:[address] Emerson, hospitalist, patient accepted to medical floor observation. Updated patient, she states appreciation and agreement. - Vital Signs Vital signs: Temp Pulse Resp BP Pulse Ox 98.4 F 97 18 122/71 99 02/18/19 07:03 02/18/19 07:03 02/18/19 07:03 02/18/19 07:03 02/18/19 07:03 - Laboratory Result Diagrams: 02/18/19 01:58 02/18/19 01:58 Laboratory results interpreted by me: 02/18/19 02/18/19 02/18/19 01:58 01:58 01:58 WBC 24.5 H RBC 6.09 H MCV 66 L MCH 21.6 L RDW 18.4 H Seg Neuts % (Manual) 92 H Lymphocytes % (Manual) 6 L Monocytes % (Manual) 2 L Abs Neuts (Manual) 22.5 H Potassium 3.1 L Glucose 195 H Magnesium 3.0 H Alkaline Phosphatase 130 H Urine Blood 02/18/19 05:27 WBC RBC MCV MCH RDW Seg Neuts % (Manual) Lymphocytes % (Manual) Monocytes % (Manual) Abs Neuts (Manual) Potassium Glucose Magnesium Alkaline Phosphatase Urine Blood SMALL H Discharge - Discharge Clinical Impression: Colitis, Hypokalemia Intractable vomiting Qualifiers: Vomiting type: unspecified Nausea presence: with nausea Qualified Code(s): R11.2 - Nausea with vomiting, unspecified Abdominal pain Qualifiers: Abdominal location: generalized Qualified Code(s): R10.84 - Generalized abdominal pain Leukocytosis Qualifiers: Leukocytosis type: unspecified Qualified Code(s): D72.829 - Elevated white blood cell count, unspecified Condition: Stable Disposition: ADMITTED OBSERVATION Admitting Provider: Ki (Hospitalist) Unit Admitted: Medical Floor Referrals: LORI BEAN MD [Primary Care Provider] - Follow up as needed
[2019-02-18 05:52] LABS: APPEARANCE,URINE CLOUDY; BILIRUBIN,URINE NEGATIVE (NEGATIVE); COLOR,URINE YELLOW; GLUCOSE, URINE NEGATIVE (NEGATIVE); KETONES,URINE NEGATIVE (NEGATIVE); LEUKOCYTE ESTERASE,URINE NEGATIVE (NEGATIVE); NITRITE,URINE NEGATIVE (NEGATIVE); PROTEIN,URINE NEGATIVE (NEGATIVE); URINE SPECIFIC GRAVITY 1.034; UROBILINOGEN,URINE NEGATIVE mg/dL (<2.0)
--- NOTE | 2019-02-18 05:57 | RADIOLOGY REPORT (SQ) ---
CT abdomen and pelvis with contrast on 02/18/2019 at 4:51 AM CLINICAL INDICATION: Lower abdominal pain, vomiting, leukocytosis TECHNIQUE: Multiple axial images are obtained throughout the abdomen and pelvis following the administration of IV contrast, 100 mL of Omnipaque 350 contrast was administered intravenously without complication. This exam was performed according to our departmental dose-optimization program, which includes automated exposure control, adjustment of the mA and/or kV according to patient size and/or use of iterative reconstruction technique. Total DLP is 2088.16 mGy*cm. COMPARISON: None FINDINGS: Abdomen: There is minimal basilar atelectasis. Vascular calcifications are noted. There are small nonobstructing left renal stones. There is a 1.7 cm indeterminate right adrenal nodule that measures 63 Hounsfield units. Would recommend one year follow-up adrenal washout protocol CT. The solid abdominal organs are otherwise unremarkable. There is no abdominal adenopathy. There is no free fluid or free air within the abdomen. There is bowel wall thickening of the distal transverse colon and splenic flexure and descending colon consistent with colitis. This may represent an infectious colitis, Crohn's disease or possibly ischemia. The abdominal portion of the GI tract is otherwise unremarkable. Pelvis: Pelvic organs appear unremarkable by CT. There is no free fluid in the pelvis. Mild increased stool is noted in the distal colon. The pelvic portion of the GI tract including the appendix is otherwise unremarkable. Degenerative changes are noted in the spine. There is grade 1 spondylolisthesis at L4-5 secondary to degenerative facet disease. IMPRESSION: 1. Findings consistent with a left-sided colitis, most likely an infectious colitis but please correlate clinically. 2. 1.7 cm probable right adrenal adenoma, recommend one-year follow-up adrenal washout protocol CT. 3. Left nephrolithiasis.
[2019-02-18] MEDS ORDERED: MORPHINE SULFATE 10 MG/ML INJ IV ONE (06:04)
[2019-02-18] MEDS ORDERED: CIPROFLOXACIN 400 MG/D5W RTU 400 MG/200 ML RTUPB IV ONE (06:05)
[2019-02-18] MEDS ORDERED: METRONIDAZOLE 500 MG/NS RTU 500 MG/100 ML RTUPB IV ONE (06:05)
[2019-02-18] MEDS: NORMAL SALINE 1000 ML 1,000 ML IV PRN ×2 (08:53→18:04)
[2019-02-18] MEDS ORDERED: ONDANSETRON HCL INJ/PF 4 MG/2 ML SDV IV PRN (10:39)
[2019-02-18] MEDS ORDERED: DEXTROSE 40% GEL 15 GM TUBE PO PRN ×2 (10:51)
[2019-02-18] MEDS ORDERED: GLUCAGON,HUMAN RECOMB 1 MG INJ IM PRN (10:51)
[2019-02-18] MEDS ORDERED: DEXTROSE 50%-WATER 25 GM/50 ML DISP.SYRIN IV PRN ×2 (10:51)
[2019-02-18] MEDS ORDERED: BISACODYL 5 MG TABEC PO ONE (11:15)
[2019-02-18] MEDS: INSULIN LISPRO 100 UNIT/ML 3 ML VIAL SUBCUT SCH ×3 (11:32→21:28)
[2019-02-18] MEDS ORDERED: HYDROXYZINE PAMOATE 50 MG CAPSULE PO PRN (13:16)
[2019-02-18] MEDS: ACETAMINOPHEN 325 MG TABLET PO PRN ×2 (13:26→21:29)
[2019-02-18] MEDS: LOSARTAN POTASSIUM 50 MG TABLET PO SCH (13:30)
[2019-02-18] MEDS: METRONIDAZOLE RTU 500 MG/NS 100 ML IV SCH ×2 (13:31→21:30)
--- NOTE | 2019-02-18 13:32 | PDOC H&P ---
History of Present Illness Admission Date/PCP: 02/18/19 08:19 LORI BEAN MD Patient complains of: nausea vomiting and abdominal pain History of Present Illness: DEANA MURRAY is a 53 year old female with a history of hypertension who presents to the hospital with complains of lower abdominal pain. Describes the pain as crampy and started since yesterday. Is a 9 out of 10 in severity without radiation. Occurs on both sides of the lower abdomen more so in the suprapubic region. Patient denies any urinary symptoms. Patient has a history of hysterectomy. Patient also complains of nausea and vomiting. States she has had several episodes since yesterday. Also states that she has not had a bowel movement in the past 2 weeks. Patient denies fever but admits to chills and sweats. Denies eating anything unusual. Past Medical History Cardiac Medical History: Reports: Hypertension Denies: Atrial Fibrillation, Congestive Heart Failure, Coronary Artery Disease, Myocardial Infarction, Hyperlipidema, Peripheral Vascular Disease, Heart Murmur Pulmonary Medical History: Denies: Asthma, Bronchitis, Chronic Obstructive Pulmonary Disease (COPD), Sleep Apnea Neurological Medical History: Denies: Seizures Endocrine Medical History: Denies: Diabetes Mellitus Type 1, Diabetes Mellitus Type 2, Hyperthyroidism, Hypothyroidism Malignancy Medical History: Denies: Breast Cancer, Cervical Cancer, Ovarian Cancer GI Medical History: Denies: Gastroesophageal Reflux Disease Musculoskeltal Medical History: Reports: Arthritis - knees Denies: Fibromyalgia Psychiatric Medical History: Denies: Bipolar Disorder, Depression, Post Traumatic Stress Disorder Hematology: Denies: Anemia, Sickle Cell Disease Past Surgical History Past Surgical History: Reports: Section - x1, Hysterectomy, Tubal Ligation Denies: Amputation, Appendectomy, Cholecystectomy, Coronary Artery Bypass Graft, Gastric Bypass Surgery, Herniorrhaphy, Mastectomy, Tonsillectomy Social History Lives with: Family Smoking Status: Current Every Day Smoker Hx Recreational Drug Use: No Hx Prescription Drug Abuse: No - Advance Directive Resuscitation Status: Full Code Family History Family History: CAD, DM, Hypertension Parental Family History Reviewed: Yes Children Family History Reviewed: NA Sibling(s) Family History Reviewed.: Yes Medication/Allergy Home Medications: Albuterol Sulfate [Albuterol Sulfate Hfa] 2 puff IH Q4HP PRN 02/18/19 Furosemide [Lasix 40 mg Tablet] 40 mg PO DAILY 02/18/19 Hydroxyzine Pamoate [Vistaril 50 mg Capsule] 100 mg PO HSP PRN 02/18/19 Losartan Potassium [Cozaar 100 mg Tablet] 100 mg PO DAILY 02/18/19 Allergies/Adverse Reactions: lisinopril Allergy (Verified 02/18/19 07:58) Angioneurotic Edema Review of Systems Constitutional: PRESENT: chills. ABSENT: anorexia Cardiovascular: ABSENT: chest pain Respiratory: ABSENT: cough, dyspnea Gastrointestinal: PRESENT: abdominal pain, bloating, constipation, nausea, vomiting. ABSENT: diarrhea Genitourinary: ABSENT: dysuria, nocturia Musculoskeletal: ABSENT: muscle weakness Integumentary: PRESENT: diaphoresis Neurological: ABSENT: confusion Endocrine: ABSENT: polyuria Allergic/Immunologic: PRESENT: seasonal rhinorrhea Physical Exam Vital Signs: Temp Pulse Resp BP Pulse Ox 98.6 F 98 16 161/91 H 97 02/18/19 12:30 02/18/19 12:30 02/18/19 12:30 02/18/19 12:30 02/18/19 12:30 Intake & Output 02/17/19 02/18/19 02/19/19 06:59 06:59 06:59 Intake Total 1000 300 Balance 1000 300 Weight 104 kg 99.4 kg General appearance: PRESENT: no acute distress, cooperative Head exam: PRESENT: normocephalic Eye exam: PRESENT: EOMI Neck exam: ABSENT: JVD Respiratory exam: PRESENT: clear to auscultation teresa, symmetrical, unlabored. ABSENT: tachypnea, wheezes Cardiovascular exam: PRESENT: RRR, +S1, +S2. ABSENT: tachycardia GI/Abdominal exam: PRESENT: normal bowel sounds, soft, tenderness - Worst in left lower quadrant and suprapubic area. ABSENT: firm, guarding, rebound, rigid Extremities exam: ABSENT: pedal edema Musculoskeletal exam: PRESENT: ambulatory Neurological exam: PRESENT: alert, awake, oriented to person, oriented to place, oriented to time, oriented to situation Results Laboratory Results: 02/18/19 01:58 02/18/19 01:58 02/18/19 02/18/19 02/18/19 01:58 01:58 01:58 WBC 24.5 H RBC 6.09 H Hgb 13.2 Hct 40.0 MCV 66 L MCH 21.6 L MCHC 32.9 RDW 18.4 H Plt Count 330 Seg Neutrophils % Not Reportable Sodium 143.0 Potassium 3.1 L Chloride 100 Carbon Dioxide 30 Anion Gap 13 BUN 9 Creatinine 0.75 Est GFR ( Amer) > 60 Glucose 195 H Calcium 9.9 Magnesium 3.0 H Total Bilirubin 0.8 AST 20 Alkaline Phosphatase 130 H Total Protein 8.0 Albumin 4.5 Urine Color Urine Appearance Urine pH Ur Specific [place] Urine Protein Urine Glucose (UA) Urine Ketones Urine Blood Urine Nitrite Ur Leukocyte Esterase Urine WBC (Auto) Urine RBC (Auto) 02/18/19 05:27 WBC RBC Hgb Hct MCV MCH MCHC RDW Plt Count Seg Neutrophils % Sodium Potassium Chloride Carbon Dioxide Anion Gap BUN Creatinine Est GFR ( Amer) Glucose Calcium Magnesium Total Bilirubin AST Alkaline Phosphatase Total Protein Albumin Urine Color YELLOW Urine Appearance CLOUDY Urine pH 8.0 Ur Specific [place] 1.034 Urine Protein NEGATIVE Urine Glucose (UA) NEGATIVE Urine Ketones NEGATIVE Urine Blood SMALL H Urine Nitrite NEGATIVE Ur Leukocyte Esterase NEGATIVE Urine WBC (Auto) 3 Urine RBC (Auto) 2 Impressions: Abdomen/Pelvis CT 02/18/19 04:16 IMPRESSION: 1. Findings consistent with a left-sided colitis, most likely an infectious colitis but please correlate clinically. 2. 1.7 cm probable right adrenal adenoma, recommend one-year follow-up adrenal washout protocol CT. 3. Left nephrolithiasis. Assessment and Plan - Diagnosis (1) Infectious colitis Is this a current diagnosis for this admission?: Yes Plan: I have reviewed CT abdomen image which is showing evidence of colitis Blood cultures obtained Continue on Levaquin and Flagyl Zofran as needed Clear liquids and advance diet as tolerated We will discharge once patient is able to tolerate p.o. and once leukocytosis tests showing improvement. (2) Constipation Is this a current diagnosis for this admission?: Yes Plan: Gave her a dose of Dulcolax and patient has had a bowel movement after this medication was given. (3) Hyperglycemia Is this a current diagnosis for this admission?: Yes Plan: Patient denies history of diabetes Was noted to have blood glucose of 195 on admission It may simply just be stress response to current illness. However, I will check A1c. Accu-Cheks with meals and nightly. (4) Hypertension Is this a current diagnosis for this admission?: Yes Plan: Uncontrolled Resume losartan 100 mg daily and Lasix monitor blood pressure response. - Time Time Spent with patient: 35 or more minutes
[2019-02-18] MEDS ORDERED: INFLUENZA QUAD (6MOS+) 2019-20 VAC 0.5 ML SYR IM ONE (13:48)
[2019-02-19] MEDS: NORMAL SALINE 1000 ML 1,000 ML IV PRN (03:58)
[2019-02-19] MEDS: METRONIDAZOLE RTU 500 MG/NS 100 ML IV SCH ×2 (05:21→14:13)
[2019-02-19] MEDS: ACETAMINOPHEN 325 MG TABLET PO PRN (05:24)
[2019-02-19 05:49] LABS: ANION GAP 7 (5-19); BLOOD UREA NITROGEN 6 mg/dL (7-20); CALCIUM 8.9 mg/dL (8.4-10.2); CARBON DIOXIDE 30 mmol/L (22-30); CHLORIDE 105 mmol/L (98-107); GLUCOSE 103 mg/dL (75-110)
[2019-02-19 07:44] LABS: ABSOLUTE BASOPHILS # (AUTO) 0.1 10^3/uL (0.0-0.2); ABSOLUTE EOSINOPHILS # (AUTO) 0.1 10^3/uL (0.0-0.6); ABSOLUTE LYMPHOCYTES (AUTO) 3.8 10^3/uL (0.5-4.7); ABSOLUTE NEUT (AUTO) 10.6 10^3/uL (1.7-8.2); BASOPHILS % (AUTO) 0.6 % (0-2); EOSINOPHILS % (AUTO) 0.6 % (0-6); LYMPHOCYTES % (AUTO) 24.1 % (13-45); MEAN CORPUSCULAR VOLUME 67 fl (80-97); MONOCYTES % (AUTO) 6.4 % (3-13); PLATELET COUNT 242 10^3/uL (150-450); RED BLOOD COUNT 4.96 10^6/uL (3.72-5.28); RED CELL DISTRIBUTION WIDTH 18.5 % (11.5-14.0); SEGMENTED NEUTROPHILS % (AUTO) 68.3 % (42-78); TOTAL CELLS COUNTED % (AUTO) 100 %; WHITE BLOOD COUNT 15.6 10^3/uL (4.0-10.5)
[2019-02-19 07:51] LABS: HEMOGLOBIN 10.9 g/dL (12.0-15.5)
[2019-02-19] MEDS: INSULIN LISPRO 100 UNIT/ML 3 ML VIAL SUBCUT SCH ×3 (07:57→16:42)
[2019-02-19] MEDS ORDERED: POTASSIUM CHLORIDE 10 MEQ TABLET.ER PO ONE (08:00)
[2019-02-19] MEDS: POTASSI CL 20 MEQ/50 ML RIDER 20 MEQ/50 ML RTUPB IV SCH ×3 (08:04→15:17)
[2019-02-19] MEDS: LOSARTAN POTASSIUM 50 MG TABLET PO SCH (09:54)
[2019-02-19] MEDS ORDERED: FUROSEMIDE 40 MG TABLET PO SCH (10:00)
[2019-02-19] MEDS ORDERED: ENOXAPARIN SODIUM INJ 40 MG/0.4 ML DISP.SYRIN SUBCUT SCH (10:00)
[2019-02-19] MEDS ORDERED: LEVOFLOXACIN 500 MG/D5W RTU 500 MG/100 ML RTUPB IV SCH (10:00)
--- NOTE | 2019-02-19 13:47 | PDOC DISCHARGE SUMMARY ---
Impression - Admit/DC Date/PCP Admission Date/Primary Care Provider: 02/18/19 08:19 LORI BEAN MD Discharge Date: 02/19/19 - Discharge Diagnosis (1) Infectious colitis Is this a current diagnosis for this admission?: Yes (2) Constipation Is this a current diagnosis for this admission?: Yes (3) Hyperglycemia Is this a current diagnosis for this admission?: Yes (4) Hypertension Is this a current diagnosis for this admission?: Yes (5) Hypokalemia due to excessive gastrointestinal loss of potassium Is this a current diagnosis for this admission?: Yes - Assessment Summary: Patient was admitted after presenting with abdominal pain, nausea and vomiting and unable to tolerate p.o. intake. CT of abdomen and pelvis had showed findings consistent with infectious colitis. Patient was hemodynamically stable throughout the hospital stay. Lab work revealed significant leukocytosis with WBC over 20. Blood cultures were obtained which have been negative in 24 hours. Patient was started on antibiotics in the ER and continued upon admission on Levaquin and Flagyl for treatment of infectious colitis. WBC count has dropped significantly today. Patient has tolerated a diet this morning and this afternoon. She was given repletions for hypokalemia which is secondary to vomiting. Her hypokalemia has been adequately repleted today prior to patient leaving the hospital. She will be discharged to continue 7 more days of Levaquin and Flagyl. Patient was noted to be hypoglycemic in the high 100s during her stay in the hospital. Patient states that she has never been diagnosed with diabetes mellitus before. I checked a hemoglobin A1c which was 6.5. Given that one isolated reading of an A1c of 6.5 is insufficient to make a diagnosis of diabetes mellitus, I have counseled patient on lifestyle modifications including weight loss, carb restricted diet and effective diet planning as means to attempt to control her elevated blood sugars and have opted to forego starting oral anti-glycemic's at this time. Patient is to follow-up with her primary care physician for further management of this. - Additional Information Resuscitation Status: Full Code Discharge Diet: As Tolerated Discharge Activity: Activity As Tolerated Referrals: LORI BEAN MD [Primary Care Provider] - 03/04/19 10:30 am (Follow up within 2 weeks) Prescriptions: Metronidazole [Flagyl 500 mg Tablet] 500 mg PO TID #21 tablet Levofloxacin [Levaquin] 500 mg PO DAILY 7 Days tablet Ondansetron HCl [Zofran 4 mg Tablet] 1 - 2 tab PO Q6HP PRN #10 tablet PRN Reason: Home Medications: Albuterol Sulfate [Albuterol Sulfate Hfa] 2 puff IH Q4HP PRN 02/18/19 Furosemide [Lasix 40 mg Tablet] 40 mg PO DAILY 02/18/19 Hydroxyzine Pamoate [Vistaril 50 mg Capsule] 100 mg PO HSP PRN 02/18/19 Losartan Potassium [Cozaar 100 mg Tablet] 100 mg PO DAILY 02/18/19 Acetaminophen [Tylenol 325 mg Tablet] 650 mg PO Q4HP PRN #0 tablet 02/19/19 Levofloxacin [Levaquin] 500 mg PO DAILY 7 Days tablet 02/19/19 Metronidazole [Flagyl 500 mg Tablet] 500 mg PO TID #21 tablet 02/19/19 Ondansetron HCl [Zofran 4 mg Tablet] 1 - 2 tab PO Q6HP PRN #10 tablet 02/19/19 History of Present Illiness History of Present Illness: DEANA MURRAY is a 53 year old female with a history of hypertension who presents to the hospital with complains of lower abdominal pain. Describes the pain as crampy and started since yesterday. Is a 9 out of 10 in severity without radiation. Occurs on both sides of the lower abdomen more so in the suprapubic region. Patient denies any urinary symptoms. Patient has a history of hysterectomy. Patient also complains of nausea and vomiting. States she has had several episodes since yesterday. Also states that she has not had a bowel movement in the past 2 weeks. Patient denies fever but admits to chills and sweats. Denies eating anything unusual. Physical Exam Vital Signs: Temp Pulse Resp BP Pulse Ox 98.2 F 68 15 136/71 H 98 02/19/19 07:39 02/19/19 07:39 02/19/19 07:39 02/19/19 07:39 02/19/19 07:39 Intake & Output 02/18/19 02/19/19 02/20/19 06:59 06:59 06:59 Intake Total 1000 4316 150 Balance 1000 4316 150 Weight 104 kg 99.6 kg General appearance: PRESENT: no acute distress, cooperative Respiratory exam: PRESENT: clear to auscultation teresa, unlabored. ABSENT: chest wall tenderness, tachypnea, wheezes Cardiovascular exam: PRESENT: +S1, +S2 GI/Abdominal exam: PRESENT: soft, tenderness. ABSENT: firm, guarding, rebound, rigid Results Laboratory Results: WBC 15.6 10^3/uL (4.0-10.5) H 02/19/19 04:34 RBC 4.96 10^6/uL (3.72-5.28) 02/19/19 04:34 Hgb 10.9 g/dL (12.0-15.5) L D 02/19/19 04:34 Hct 33.0 % (36.0-47.0) L 02/19/19 04:34 MCV 67 fl (80-97) L 02/19/19 04:34 MCH 22.0 pg (27.0-33.4) L 02/19/19 04:34 MCHC 33.0 g/dL (32.0-36.0) 02/19/19 04:34 RDW 18.5 % (11.5-14.0) H 02/19/19 04:34 Plt Count 242 10^3/uL (150-450) 02/19/19 04:34 Lymph % (Auto) 24.1 % (13-45) 02/19/19 04:34 [place] % (Auto) 6.4 % (3-13) 02/19/19 04:34 Eos % (Auto) 0.6 % (0-6) 02/19/19 04:34 Baso % (Auto) 0.6 % (0-2) 02/19/19 04:34 Absolute Neuts (auto) 10.6 10^3/uL (1.7-8.2) H 02/19/19 04:34 Absolute Lymphs (auto) 3.8 10^3/uL (0.5-4.7) 02/19/19 04:34 Absolute Monos (auto) 1.0 10^3/uL (0.1-1.4) 02/19/19 04:34 Absolute Eos (auto) 0.1 10^3/uL (0.0-0.6) 02/19/19 04:34 Absolute Basos (auto) 0.1 10^3/uL (0.0-0.2) 02/19/19 04:34 Total Counted 100 02/18/19 01:58 Seg Neutrophils % 68.3 % (42-78) 02/19/19 04:34 Seg Neuts % (Manual) 92 % (42-78) H 02/18/19 01:58 Lymphocytes % (Manual) 6 % (13-45) L 02/18/19 01:58 Monocytes % (Manual) 2 % (3-13) L 02/18/19 01:58 Eosinophils % (Manual) 0 % (0-6) 02/18/19 01:58 Basophils % (Manual) 0 % (0-2) 02/18/19 01:58 Abs Neuts (Manual) 22.5 10^3/uL (1.7-8.2) H 02/18/19 01:58 Abs Lymphs (Manual) 1.5 10^3/uL (0.5-4.7) 02/18/19 01:58 Abs Monocytes (Manual) 0.5 10^3/uL (0.1-1.4) 02/18/19 01:58 Absolute Eos (Manual) 0.0 10^3/uL (0.0-0.6) 02/18/19 01:58 Abs Basophils (Manual) 0.0 10^3/uL (0.0-0.2) 02/18/19 01:58 Toxic Granulation 1+ 02/18/19 01:58 Platelet Comment ADEQUATE 02/18/19 01:58 Hypochromasia 1+ 02/18/19 01:58 Poikilocytosis SLIGHT 02/18/19 01:58 Anisocytosis 2+ 02/18/19 01:58 Microcytosis 3+ 02/18/19 01:58 Target Cells SLIGHT 02/18/19 01:58 Schistocytes SLIGHT 02/18/19 01:58 Sodium 142.4 mmol/L (137-145) 02/19/19 04:34 Potassium 3.0 mmol/L (3.6-5.0) L* 02/19/19 04:34 Chloride 105 mmol/L (98-107) 02/19/19 04:34 Carbon Dioxide 30 mmol/L (22-30) 02/19/19 04:34 Anion Gap 7 (5-19) 02/19/19 04:34 BUN 6 mg/dL (7-20) L 02/19/19 04:34 Creatinine 0.82 mg/dL (0.52-1.25) 02/19/19 04:34 Est GFR ( Amer) > 60 (>60) 02/19/19 04:34 Est GFR (MDRD) Non-Af > 60 (>60) 02/19/19 04:34 Glucose 103 mg/dL (75-110) 02/19/19 04:34 POC Glucose 124 mg/dL (70-110) H 02/19/19 11:10 Hemoglobin A1c % 6.5 % (4.7-6.0) H 02/19/19 04:34 Calcium 8.9 mg/dL (8.4-10.2) 02/19/19 04:34 Magnesium 2.7 mg/dL (1.6-2.3) H 02/19/19 04:34 Total Bilirubin 0.8 mg/dL (0.2-1.3) 02/18/19 01:58 Direct Bilirubin 0.3 mg/dL (0.0-0.4) 02/18/19 01:58 Neonat Total Bilirubin Not Reportable 02/18/19 01:58 Neonat Direct Bilirubin Not Reportable 02/18/19 01:58 Neonat Indirect Bili Not Reportable 02/18/19 01:58 AST 20 U/L (14-36) 02/18/19 01:58 ALT 14 U/L (<35) 02/18/19 01:58 Alkaline Phosphatase 130 U/L (38-126) H 02/18/19 01:58 Total Protein 8.0 g/dL (6.3-8.2) 02/18/19 01:58 Albumin 4.5 g/dL (3.5-5.0) 02/18/19 01:58 Urine Color YELLOW 02/18/19 05:27 Urine Appearance CLOUDY 02/18/19 05:27 Urine pH 8.0 (5.0-9.0) 02/18/19 05:27 Ur Specific [place] 1.034 02/18/19 05:27 Urine Protein NEGATIVE mg/dL (NEGATIVE) 02/18/19 05:27 Urine Glucose (UA) NEGATIVE mg/dL (NEGATIVE) 02/18/19 05:27 Urine Ketones NEGATIVE mg/dL (NEGATIVE) 02/18/19 05:27 Urine Blood SMALL (NEGATIVE) H 02/18/19 05:27 Urine Nitrite NEGATIVE (NEGATIVE) 02/18/19 05:27 Urine Bilirubin NEGATIVE (NEGATIVE) 02/18/19 05:27 Urine Urobilinogen NEGATIVE mg/dL (<2.0) 02/18/19 05:27 Ur Leukocyte Esterase NEGATIVE (NEGATIVE) 02/18/19 05:27 Urine WBC (Auto) 3 /HPF 02/18/19 05:27 Urine RBC (Auto) 2 /HPF 02/18/19 05:27 Squamous Epi Cells Auto 5 /HPF 02/18/19 05:27 Urine Mucus (Auto) RARE /LPF 02/18/19 05:27 Urine Ascorbic Acid NEGATIVE (NEGATIVE) 02/18/19 05:27 Impressions: Abdomen/Pelvis CT 02/18/19 04:16 IMPRESSION: 1. Findings consistent with a left-sided colitis, most likely an infectious colitis but please correlate clinically. 2. 1.7 cm probable right adrenal adenoma, recommend one-year follow-up adrenal washout protocol CT. 3. Left nephrolithiasis. Plan Time Spent: Less than 30 Minutes Stroke Is this a Stroke Patient?: No Acute Heart Failure - Is this a Heart Failure Patient?: No
[2019-02-19 19:36] VITALS: BP 150/90
== END 2019-02-19 20:10 | disposition home or self-care (01) ==
LOC: ER 00:22 → EH 08:19 → 4W 12:35
PROVIDERS: ADMIT Internal Medicine; ATTEND Internal Medicine
DX: A09 Infectious gastroenteritis and colitis, unspecified (principal); K59.00 Constipation, unspecified; R73.9 Hyperglycemia, unspecified; I10 Essential (primary) hypertension; E87.6 Hypokalemia; E86.0 Dehydration; F17.200 Nicotine dependence, unspecified, uncomplicated; Z79.899 Other long term (current) drug therapy; Z90.710 Acquired absence of both cervix and uterus; Z98.51 Tubal ligation status; Z90.721 Acquired absence of ovaries, unilateral; Z83.3 Family history of diabetes mellitus; Z90.79 Acquired absence of other genital organ(s)
CPT/HCPCS: 96376; 99285; 96361; 96375; 96365; 96367; 36415 ×2; 87040; 82962 ×2; 83735 ×2; 85025 ×2; 80048; 80053; 81001; 83036; 74177; G0378 ×3; J3490 ×5; J1956; S0119; J2270; J1650; J2405; J3480; J7030 ×2; J0744

== ENCOUNTER 2019-03-28 19:32 | Emergency (ER) | payer MEDICAID ==
--- NOTE | 2019-03-28 20:43 | ER Document Report ---
ED Medical Screen (RME) - General Chief Complaint: Abdominal Pain >50 Stated Complaint: STOMACH PAIN Time Seen by Provider: 03/28/19 20:33 Primary Care Provider: LORI BEAN MD [Primary Care Provider] - Follow up as needed Mode of Arrival: Ambulatory Information source: Patient Notes: 53-year-old female with history of colitis presents to the emergency department with complaints of low abdominal pain for the past 2 days. Reports some nausea denies vomiting diarrhea. Denies fever. Reports she was admitted to the hospital in February for infectious colitis. She reports she felt a little better afterwards and started hurting again 2 days ago. Patient reports she is scheduled for an EGD on April 09. I have greeted and performed a rapid initial assessment of this patient. A comprehensive ED assessment and evaluation of the patient, analysis of test results and completion of the medical decision making process will be conducted by additional ED providers. TRAVEL OUTSIDE OF THE [place] IN LAST 30 DAYS: No - Related Data Allergies/Adverse Reactions: lisinopril Allergy (Verified 02/18/19 07:58) Angioneurotic Edema Home Medications: HTN MEDS PT STATED ITS IN THE CHART Past Medical History - Past Medical History Cardiac Medical History: Reports: Hx Hypertension Denies: Hx Atrial Fibrillation, Hx Congestive Heart Failure, Hx Coronary Artery Disease, Hx Heart Attack, Hx Hypercholesterolemia, Hx Peripheral Vascular Disease, Hx Heart Murmur Pulmonary Medical History: Denies: Hx Asthma, Hx Bronchitis, Hx COPD, Hx Sleep Apnea Neurological Medical History: Denies: Hx Cerebrovascular Accident, Hx Seizures Endocrine Medical History: Denies: Hx Diabetes Mellitus Type 1, Hx Diabetes Mellitus Type 2, Hx Hyperthyroidism, Hx Hypothyroidism Renal/ Medical History: Reports: Hx Ovarian Cysts. Denies: Hx Kidney Stones, Hx Peritoneal Dialysis, Hx Pelvic Inflammatory Disease Malignancy Medical History: Denies: Hx Breast Cancer, Hx Cervical Cancer, Hx Ovarian Cancer GI Medical History: Denies: Hx Gastroesophageal Reflux Disease Musculoskeltal Medical History: Reports Hx Arthritis - knees, Denies Hx Fibromyalgia, Denies Hx Muscular Dystrophy, Reports Hx Musculoskeletal Deformity, Reports Hx Musculoskeletal Trauma Psychiatric Medical History: Denies: Hx Bipolar Disorder, Hx Depression, Hx Post Traumatic Stress Disorder Traumatic Medical History: Denies: Hx Fractures Past Surgical History: Reports: Hx Section - x1, Hx Gynecologic Surgery - Right salpingo-oophorectomy, Hx Hysterectomy, Hx Tubal Ligation. Denies: Hx Appendectomy, Hx Bowel Surgery, Hx Cholecystectomy, Hx Coronary Artery Bypass Graft, Hx Gastric Bypass Surgery, Hx Herniorrhaphy, Hx Mastectomy, Hx Tonsillectomy - Immunizations Hx Diphtheria, Pertussis, Tetanus Vaccination: Yes Physical Exam - Vital signs Vitals: Temp Pulse Resp BP Pulse Ox 99.1 F 96 18 150/93 H 98 03/28/19 19:51 03/28/19 19:51 03/28/19 19:51 03/28/19 19:51 03/28/19 19:51 Course - Vital Signs Vital signs: Temp Pulse Resp BP Pulse Ox 99.1 F 96 18 150/93 H 98 03/28/19 19:51 03/28/19 19:51 03/28/19 19:51 03/28/19 19:51 03/28/19 19:51 Doctor's Discharge - Discharge Referrals: LORI BEAN MD [Primary Care Provider] - Follow up as needed
[2019-03-28 21:04] LABS: APPEARANCE,URINE SLIGHTLY-CLOUDY; BILIRUBIN,URINE NEGATIVE (NEGATIVE); COLOR,URINE STRAW; GLUCOSE, URINE NEGATIVE (NEGATIVE); KETONES,URINE NEGATIVE (NEGATIVE); LEUKOCYTE ESTERASE,URINE NEGATIVE (NEGATIVE); NITRITE,URINE NEGATIVE (NEGATIVE); PROTEIN,URINE NEGATIVE (NEGATIVE); URINE SPECIFIC GRAVITY 1.004; UROBILINOGEN,URINE NEGATIVE mg/dL (<2.0)
[2019-03-28 21:26] LABS: ABSOLUTE BASOPHILS # (AUTO) 0.1 10^3/uL (0.0-0.2); ABSOLUTE EOSINOPHILS # (AUTO) 0.1 10^3/uL (0.0-0.6); ABSOLUTE LYMPHOCYTES (AUTO) 2.9 10^3/uL (0.5-4.7); ABSOLUTE MONOCYTES (AUTO) 0.6 10^3/uL (0.1-1.4); BASOPHILS % (AUTO) 0.7 % (0-2); EOSINOPHILS % (AUTO) 0.7 % (0-6); HEMATOCRIT 36.1 % (36.0-47.0); LYMPHOCYTES % (AUTO) 24.6 % (13-45); MEAN CORPUSCULAR HEMOGLOBIN 21.5 pg (27.0-33.4); MEAN CORPUSCULAR HGB CONC 33.3 g/dL (32.0-36.0); MONOCYTES % (AUTO) 5.3 % (3-13); PLATELET COUNT 328 10^3/uL (150-450); RED BLOOD COUNT 5.58 10^6/uL (3.72-5.28); RED CELL DISTRIBUTION WIDTH 19.7 % (11.5-14.0); SEGMENTED NEUTROPHILS % (AUTO) 68.7 % (42-78); TOTAL CELLS COUNTED % (AUTO) 100 %; WHITE BLOOD COUNT 11.7 10^3/uL (4.0-10.5)
[2019-03-28 21:42] LABS: MEAN CORPUSCULAR VOLUME 65 fl (80-97)
[2019-03-28 21:46] LABS: ALKALINE PHOSPHATASE 73 U/L (38-126); ANION GAP 8 (5-19); ASPARTATE AMINO TRANSFERASE 16 U/L (14-36); BILIRUBIN,DIRECT 0.3 mg/dL (0.0-0.4); BILIRUBIN,TOTAL 0.4 mg/dL (0.2-1.3); BLOOD UREA NITROGEN 7 mg/dL (7-20); CARBON DIOXIDE 28 mmol/L (22-30); CHLORIDE 105 mmol/L (98-107); GLUCOSE 108 mg/dL (75-110); POTASSIUM 4.3 mmol/L (3.6-5.0); TOTAL PROTEIN 7.4 g/dL (6.3-8.2)
[2019-03-28 21:47] LABS: ANISOCYTOSIS 2+; HYPOCHROMASIA 1+; OVALOCYTES SLIGHT; PLATELET COMMENT ADEQUATE; POIKILOCYTOSIS 2+; TARGET CELLS 2+; TEAR DROP CELLS SLIGHT; TOXIC GRANULATION 1+
--- NOTE | 2019-03-28 23:59 | ER Document Report ---
ED General - General Chief Complaint: Abdominal Pain >50 Stated Complaint: STOMACH PAIN Time Seen by Provider: 03/28/19 20:33 Primary Care Provider: LORI BEAN MD [Primary Care Provider] - Follow up as needed Mode of Arrival: Ambulatory Information source: Patient Notes: Patient complains of bilateral lower abdominal pain similar to her colitis that was diagnosis in February 2019. Patient was treated in the hospital and discharged home on Levaquin and Flagyl. Patient did well on the antibiotics and when she completed her course she says within a week or so's she noted the symptoms were returning. There was crescendo increase in pain and intensity in the last 3 days which prompted her visit to the ED at this time. Patient has nausea but no vomiting. No fever or chills. Bowel movements have been formed stool and no constipation noted. No bleeding noted per patient. TRAVEL OUTSIDE OF THE [place] IN LAST 30 DAYS: No - HPI Onset: Other - 1 week Quality of pain: Achy, Cramping, Sharp Severity: Moderate Pain Level: 3 Associated symptoms: Nausea Exacerbated by: Denies Similar symptoms previously: Yes - 1 month ago diagnosed with infectious colitis of colon Recently seen / treated by doctor: No - Related Data Allergies/Adverse Reactions: lisinopril Allergy (Verified 02/18/19 07:58) Angioneurotic Edema Home Medications: HTN MEDS PT STATED ITS IN THE CHART Past Medical History - General Information source: Patient - Social History Smoking Status: Current Every Day Smoker Lives with: Family Family History: Reviewed & Not Pertinent, CAD, DM, Hypertension Patient has suicidal ideation: No Patient has homicidal ideation: No - Past Medical History Cardiac Medical History: Reports: Hx Hypertension Denies: Hx Atrial Fibrillation, Hx Congestive Heart Failure, Hx Coronary Artery Disease, Hx Heart Attack, Hx Hypercholesterolemia, Hx Peripheral Vascular Disease, Hx Heart Murmur Pulmonary Medical History: Denies: Hx Asthma, Hx Bronchitis, Hx COPD, Hx Sleep Apnea Neurological Medical History: Denies: Hx Cerebrovascular Accident, Hx Seizures Endocrine Medical History: Denies: Hx Diabetes Mellitus Type 1, Hx Diabetes Mellitus Type 2, Hx Hyperthyroidism, Hx Hypothyroidism Renal/ Medical History: Reports: Hx Ovarian Cysts. Denies: Hx Kidney Stones, Hx Peritoneal Dialysis, Hx Pelvic Inflammatory Disease Malignancy Medical History: Denies: Hx Breast Cancer, Hx Cervical Cancer, Hx Ovarian Cancer GI Medical History: Denies: Hx Gastroesophageal Reflux Disease Musculoskeletal Medical History: Reports Hx Arthritis - knees, Denies Hx Fibromyalgia, Denies Hx Muscular Dystrophy, Reports Hx Musculoskeletal Deformity, Reports Hx Musculoskeletal Trauma Psychiatric Medical History: Denies: Hx Bipolar Disorder, Hx Depression, Hx Post Traumatic Stress Disorder Traumatic Medical History: Denies: Hx Fractures Past Surgical History: Reports: Hx Section - x1, Hx Gynecologic Surgery - Right salpingo-oophorectomy, Hx Hysterectomy, Hx Tubal Ligation. Denies: Hx Appendectomy, Hx Bowel Surgery, Hx Cholecystectomy, Hx Coronary Artery Bypass Graft, Hx Gastric Bypass Surgery, Hx Herniorrhaphy, Hx Mastectomy, Hx Tonsillectomy - Immunizations Hx Diphtheria, Pertussis, Tetanus Vaccination: Yes Review of Systems - Review of Systems Gastrointestinal: See HPI Physical Exam - Vital signs Vitals: Temp Pulse Resp BP Pulse Ox 99.1 F 96 18 150/93 H 98 03/28/19 19:51 03/28/19 19:51 03/28/19 19:51 03/28/19 19:51 03/28/19 19:51 Interpretation: Normal - General General appearance: Appears well, Alert - HEENT Head: Normocephalic, Atraumatic Eyes: Normal Pupils: PERRL - Respiratory Respiratory status: No respiratory distress Chest status: Nontender Breath sounds: Normal Chest palpation: Normal - Cardiovascular Rhythm: Regular Heart sounds: Normal auscultation Murmur: No - Abdominal Inspection: Normal Distension: No distension Bowel sounds: Normal Tenderness: Nontender, Tender, Other - Tenderness noted in the left lower quadrant with deep palpation. Positive guarding in that location. Organomegaly: No organomegaly - Back Back: Normal, Nontender - Extremities General upper extremity: Normal inspection, Nontender, Normal color, Normal ROM, Normal temperature General lower extremity: Normal inspection, Nontender, Normal color, Normal ROM, Normal temperature, Normal weight bearing. No: Olivier's sign - Neurological Neuro grossly intact: Yes Cognition: Normal Orientation: AAOx4 Anders Coma Scale Eye Opening: Spontaneous Anders Coma Scale Verbal: Oriented [place] Coma Scale Motor: Obeys Commands Anders Coma Scale Total: 15 Speech: Normal Motor strength normal: LUE, RUE, LLE, RLE Sensory: Normal - Psychological Associated symptoms: Normal affect, Normal mood - Skin Skin Temperature: Warm Skin Moisture: Dry Skin Color: Normal Course - Vital Signs Vital signs: Temp Pulse Resp BP Pulse Ox 98.7 F 93 20 154/105 H 97 03/28/19 23:47 03/28/19 23:47 03/28/19 23:47 03/28/19 23:47 03/28/19 23:47 - Laboratory Result Diagrams: 03/28/19 20:50 03/28/19 20:50 Laboratory results interpreted by me: 03/28/19 20:50 WBC 11.7 H RBC 5.58 H MCV 65 L MCH 21.5 L RDW 19.7 H - Diagnostic Test Radiology reviewed: Image reviewed, Reports reviewed Radiology results interpreted by me: 03/29/19 02:14 Radiology report shows thickened sigmoid colon wall consistent with colitis with a differential of infectious inflammatory or neoplastic. Discharge - Discharge Clinical Impression: Colitis Condition: Stable Disposition: HOME, SELF-CARE Instructions: Abdominal Pain ([facility]) Additional Instructions: Colitis, Nonspecific Colitis is an inflammatory disease of the large intestine which affects the lining of the bowel. The cause is uncertain, though it is often caused by an infection. In some cases, the symptoms resolve and can return again in the future. Colitis is characterized by abdominal pain, often nausea and vomiting, and either diarrhea or difficulty with bowel movements. Sometimes blood will be present in the bowel movements. Fever is often present as well. Milder cases of colitis can be managed as an outpatient with medications for nausea and vomiting and pain, oral fluid therapy, and perhaps antibiotics, if a bacterial origin is suspected. Antidiarrhea medicine should usually be avoided in colitis. If you have increasing abdominal pain, repeated vomiting, fever, rectal bleeding, or worsening diarrhea, you should return for re-evaluation. Prescriptions: Metronidazole [Flagyl 500 mg Tablet] 500 mg PO TID 5 Days #15 tablet Levofloxacin [Levaquin 750 mg Tablet] 500 mg PO DAILY #5 tablet Referrals: LORI BEAN MD [Primary Care Provider] - Follow up as needed
--- NOTE | 2019-03-29 01:02 | RADIOLOGY REPORT (SQ) ---
EXAM DESCRIPTION: CT ABDOMEN PELVIS WITHOUT IV CONTRAST COMPLETED DATE/TME: 03/29/2019 00:17 CLINICAL HISTORY: 53 years, Female, llq abd pain/ history of colitis COMPARISON: 02/18/2019 CT TECHNIQUE: 326 Images stored on PACS. All CT scanners at this facility use dose modulation, iterative reconstruction, and/or weight based dosing when appropriate to reduce radiation dose to as low as reasonably achievable (ALARA). [facility]: Dose Right [facility]: CareDose [facility]: Dose Right [facility]: Teradose 4D [facility]: [employer] LIMITATIONS: None. FINDINGS: The lung bases are unremarkable. Osseous structures are grossly intact. Limited evaluation of the liver, spleen, left adrenal gland are unremarkable. Pancreas is grossly unremarkable. The gallbladder is present, contracted. Nonobstructing left renal calculi. No obstructing calculus or hydronephrosis. Subcentimeter nodule of the right adrenal gland likely reflecting adenoma. A large amount stool in the colon. No free air or free fluid. There is a short segment of wall thickening involving the sigmoid colon. Some adjacent inflammation. No abscess, free air, or free fluid. Normal appendix. IMPRESSION: Abnormal segment of sigmoid colon wall thickening with adjacent inflammation. Findings are consistent with nonspecific colitis. Follow-up recommended. No definitive diverticular disease. Infectious, inflammatory, and neoplastic processes are all considered.. TECHNICAL DOCUMENTATION: Quality ID # 436: Final reports with documentation of one or more dose reduction techniques (e.g., Automated exposure control, adjustment of the mA and/or kV according to patient size, use of iterative reconstruction technique) copyright 2011 [employer]- All Rights Reserved
[2019-03-29] MEDS ORDERED: LEVOFLOXACIN 750 MG TABLET PO ONE (02:00)
[2019-03-29] MEDS ORDERED: METRONIDAZOLE 500 MG TABLET PO ONE (02:01)
[2019-03-29] MEDS ORDERED: ONDANSETRON 4 MG TAB.RAPDIS PO ONE (02:02)
[2019-03-29] MEDS ORDERED: ACETAMINOPHEN 325 MG TABLET PO ONE (02:03)
[2019-03-29 02:34] VITALS: BP 145/78
[2019-03-29 14:24] LABS: PATH REVIEW PATHOLOGIST REVIEWED
== END 2019-03-29 02:32 | disposition home or self-care (01) ==
LOC: ER 19:32
DX: K52.9 Noninfective gastroenteritis and colitis, unspecified (principal); R10.30 Lower abdominal pain, unspecified; R11.0 Nausea; F17.200 Nicotine dependence, unspecified, uncomplicated; I10 Essential (primary) hypertension; Z90.710 Acquired absence of both cervix and uterus
CPT/HCPCS: 99284; 36415; 83690; 85025; 80053; 81001; 74176; J3490 ×3; S0119

== ENCOUNTER → 2019-03-31 | Outpatient (CLI) | payer MEDICAID ==
[2019-03-31 12:07] LABS: ABSOLUTE BASOPHILS # (AUTO) 0.1 10^3/uL (0.0-0.2); ABSOLUTE EOSINOPHILS # (AUTO) 0.1 10^3/uL (0.0-0.6); ABSOLUTE LYMPHOCYTES (AUTO) 2.9 10^3/uL (0.5-4.7); ABSOLUTE MONOCYTES (AUTO) 0.6 10^3/uL (0.1-1.4); ABSOLUTE NEUT (AUTO) 7.8 10^3/uL (1.7-8.2); BASOPHILS % (AUTO) 0.7 % (0-2); HEMATOCRIT 35.2 % (36.0-47.0); HEMOGLOBIN 11.8 g/dL (12.0-15.5); LYMPHOCYTES % (AUTO) 25.1 % (13-45); MEAN CORPUSCULAR HEMOGLOBIN 21.5 pg (27.0-33.4); MEAN CORPUSCULAR HGB CONC 33.5 g/dL (32.0-36.0); MONOCYTES % (AUTO) 5.4 % (3-13); PLATELET COUNT 301 10^3/uL (150-450); RED BLOOD COUNT 5.48 10^6/uL (3.72-5.28); RED CELL DISTRIBUTION WIDTH 19.4 % (11.5-14.0); SEGMENTED NEUTROPHILS % (AUTO) 67.8 % (42-78); TOTAL CELLS COUNTED % (AUTO) 100 %; WHITE BLOOD COUNT 11.5 10^3/uL (4.0-10.5)
[2019-03-31 12:23] LABS: ALKALINE PHOSPHATASE 75 U/L (38-126); ANION GAP 12 (5-19); ASPARTATE AMINO TRANSFERASE 15 U/L (14-36); BILIRUBIN,DIRECT 0.3 mg/dL (0.0-0.4); BILIRUBIN,TOTAL 0.5 mg/dL (0.2-1.3); BLOOD UREA NITROGEN 10 mg/dL (7-20); CALCIUM 9.8 mg/dL (8.4-10.2); CARBON DIOXIDE 24 mmol/L (22-30); CHLORIDE 105 mmol/L (98-107); GLUCOSE 96 mg/dL (75-110); POTASSIUM 3.9 mmol/L (3.6-5.0); TOTAL PROTEIN 7.5 g/dL (6.3-8.2)
[2019-03-31 12:51] LABS: MEAN CORPUSCULAR VOLUME 64 fl (80-97)
[2019-03-31 13:02] LABS: HYPOCHROMASIA 2+; POLYCHROMASIA SLIGHT
[2019-03-31 13:03] LABS: ANISOCYTOSIS 2+; PLATELET COMMENT ADEQUATE; TARGET CELLS 2+
[2019-04-01 10:25] LABS: PATH REVIEW PATHOLOGIST REVIEWED
== END ==
LOC: OD 11:00
PROVIDERS: ATTEND Internal Medicine
DX: R10.32 Left lower quadrant pain (principal)
CPT/HCPCS: 36415; 80053; 85025

== ENCOUNTER → 2019-04-29 | Outpatient (CLI) | payer MEDICAID | LOC: OD 11:38 | PROVIDERS: ATTEND Surgery | DX: C18.9 Malignant neoplasm of colon, unspecified (principal) | CPT/HCPCS: 36415; 82378 ==

== ENCOUNTER → 2019-05-11 | Outpatient (CLI) | payer MEDICAID ==
--- NOTE | 2019-05-11 15:35 | RADIOLOGY REPORT (SQ) ---
EXAM DESCRIPTION: CT ABD/PELVIS WITH IV ORAL COMPLETED DATE/TIME: 05/11/2019 10:57 am REASON FOR STUDY: COLON CA C18.9 MALIGNANT NEOPLASM OF COLON, UNSPECIFIED COMPARISON: 03/29/2019 and 02/18/2019. TECHNIQUE: CT scan of the abdomen and pelvis performed using helical scanning technique with dynamic intravenous contrast injection. No oral contrast. Images reviewed with lung, soft tissue, and bone windows. Reconstructed coronal and sagittal MPR images reviewed. Delayed images for evaluation of the urinary system also acquired. All images stored on PACS. All CT scanners at this facility use dose modulation, iterative reconstruction, and/or weight based d osing when appropriate to reduce radiation dose to as low as reasonably achievable (ALARA). [facility]: Dose Right [facility]: CareDose [facility]: Dose Right [facility]: Teradose 4D [facility]: [employer] CONTRAST TYPE AND DOSE: contrast/concentration: Isovue 350.00 mg/ml; Total Contrast Delivered: 100.0 ml; Total Saline Delivered: 72.0 ml RENAL FUNCTION: Creatinine 0.7. RADIATION DOSE: . LIMITATIONS: None. FINDINGS: LOWER CHEST: See separate report of the CT of the chest. LIVER: Normal size. No masses. No dilated ducts. SPLEEN: Normal size. No focal lesions. PANCREAS: No masses. No significant calcifications. No adjacent inflammation or peripancreatic fluid collections. Pancreatic duct not dilated. GALLBLADDER: No identified stones by CT criteria. No inflammatory changes to suggest cholecystitis. ADRENAL GLANDS: Stable small nodule in the right adrenal gland, measuring approximately 1 cm. RIGHT KIDNEY AND URETER: No solid masses. No significant calcifications. No hydronephrosis or hyd roureter. LEFT KIDNEY AND URETER: Small subcentimeter cortical cyst. No solid masses. There are a few tiny p unctate calyceal calculi. No hydronephrosis or hydroureter. AORTA AND VESSELS: No aneurysm. No dissection. Renal arteries, SMA, celiac without stenosis. RETROPERITONEUM: No retroperitoneal adenopathy, hemorrhage or masses. BOWEL AND PERITONEAL CAVITY: Again seen is focal irregular narrowing and thickening of the wall of th e mid sigmoid colon. There are a few adjacent lymph nodes, measuring 5 mm or less. No free fluid or peritoneal masses. APPENDIX: Normal. PELVIS: No mass. No free fluid. Normal bladder. ABDOMINAL WALL: No masses. Diastases of the rectus abdominus muscles with a small midline hernia con taining fat. BONES: No significant or acute findings. OTHER: No other significant finding. IMPRESSION: 1. FOCAL IRREGULAR NARROWING AND THICKENING OF THE WALL OF THE MID SIGMOID COLON, CONSISTENT WITH THE RECENTLY DIAGNOSED MALIGNANCY. A FEW SMALL LYMPH NODES ARE PRESENT MEASURING LESS THAN 5 MM. 2. SMALL RIGHT ADRENAL NODULE, POSSIBLY AN ADENOMA. METASTATIC LESION CANNOT BE EXCLUDED. IF THERE IS STRONG CLINICAL CONCERN, MAY CONSIDER MRI OF THE ADRENAL GLANDS. 3. SMALL NONOBSTRUCTING CALYCEAL CALCULI IN THE LEFT KIDNEY. SMALL CORTICAL CYST IN THE LEFT KIDNEY. 4. DIASTASES OF THE RECTUS ABDOMINUS MUSCLES WITH A SMALL MIDLINE HERNIA CONTAINING FAT. NO INVOLVEM ENT OF BOWEL. 5. NO OTHER SIGNIFICANT OR ACUTE FINDING IN THE ABDOMEN OR PELVIS ON CT SCAN WITH IV CONTRAST. TECHNICAL DOCUMENTATION: JOB ID: [id number] Quality ID # 436: Final reports with documentation of one or more dose reduction techniques (e.g., Au tomated exposure control, adjustment of the mA and/or kV according to patient size, use of iterative reconstruction technique) 2010 [employer]- All Rights Reserved Reading location - IP/workstation name: [email or web address]
--- NOTE | 2019-05-11 15:59 | RADIOLOGY REPORT (SQ) ---
EXAM DESCRIPTION: CT CHEST WITH COMPLETED DATE/TIME: 05/11/2019 10:57 am REASON FOR STUDY: COLON CA C18.9 MALIGNANT NEOPLASM OF COLON, UNSPECIFIED COMPARISON: None. TECHNIQUE: CT scan of the chest performed using helical scanning technique with dynamic intravenous contrast injection. Images reviewed with lung, soft tissue and bone windows. Reconstructed coronal and sagittal MPR and MIP images reviewed. All images stored on PACS. All CT scanners at this facility use dose modulation, iterative reconstruction, and/or weight based d osing when appropriate to reduce radiation dose to as low as reasonably achievable (ALARA). [facility]: Dose Right [facility]: CareDose [facility]: Dose Right [facility]: Teradose 4D [facility]: [employer] CONTRAST TYPE AND DOSE: 100 mL Omnipaque 350- low osmolar. RENAL FUNCTION: Creatinine 0.7. RADIATION DOSE: CT Rad equipment meets quality standard of care and radiation dose reduction techniq ues were employed. CTDIvol: 12.7 - 23.0 mGy. DLP: 2849 mGy-cm. . LIMITATIONS: None. FINDINGS: LUNGS AND PLEURA: No opacities, nodules, masses. No pneumothorax. No effusions. HILAR AND MEDIASTINAL STRUCTURES: No identified masses or abnormal nodes. HEART AND VASCULAR STRUCTURES: No aneurysm or dissection. No central pulmonary emboli. No pericardi al effusion. HARDWARE: None in the chest. UPPER ABDOMEN: See separate report of the CT of the abdomen. THYROID AND OTHER SOFT TISSUES: No masses. No adenopathy. BONES: No significant finding. OTHER: No other significant finding. IMPRESSION: NORMAL CT OF THE CHEST WITH IV CONTRAST. TECHNICAL DOCUMENTATION: JOB ID: [id number] Quality ID # [id number]: Final reports with documentation of one or more dose reduction techniques (e.g., Au tomated exposure control, adjustment of the mA and/or kV according to patient size, use of iterative reconstruction technique) 2010 [employer]- All Rights Reserved Reading location - IP/workstation name: [email or web address]
== END ==
LOC: RAD 09:45
PROVIDERS: ATTEND Surgery
DX: C18.9 Malignant neoplasm of colon, unspecified (principal)
CPT/HCPCS: 71260; 74177; 82565

== ENCOUNTER → 2019-05-18 | Outpatient (CLI) | payer MEDICAID ==
[2019-05-18 13:46] LABS: HEMATOCRIT 32.6 % (36.0-47.0); MEAN CORPUSCULAR HEMOGLOBIN 20.8 pg (27.0-33.4); MEAN CORPUSCULAR HGB CONC 33.8 g/dL (32.0-36.0); MEAN CORPUSCULAR VOLUME 62 fl (80-97); PLATELET COUNT 300 10^3/uL (150-450); RED BLOOD COUNT 5.29 10^6/uL (3.72-5.28); RED CELL DISTRIBUTION WIDTH 20.2 % (11.5-14.0); WHITE BLOOD COUNT 8.8 10^3/uL (4.0-10.5)
[2019-05-18 14:10] LABS: ANION GAP 9 (5-19); BLOOD UREA NITROGEN 7 mg/dL (7-20); CALCIUM 9.5 mg/dL (8.4-10.2); CARBON DIOXIDE 29 mmol/L (22-30); CHLORIDE 102 mmol/L (98-107); GLUCOSE 97 mg/dL (75-110); POTASSIUM 3.7 mmol/L (3.6-5.0)
--- NOTE | 2019-05-18 14:18 | RADIOLOGY REPORT (SQ) ---
EXAM DESCRIPTION: CHEST PA/LATERAL COMPLETED DATE/TIME: 05/18/2019 1:12 pm REASON FOR STUDY: PRE-OP COMPARISON: 2019 TECHNIQUE: Frontal and lateral radiographic views of the chest acquired. NUMBER OF VIEWS: Two view. LIMITATIONS: None. FINDINGS: LUNGS AND PLEURA: No opacities, masses or pneumothorax. No pleural effusion. MEDIASTINUM AND HILAR STRUCTURES: No masses or contour abnormalities. HEART AND VASCULAR STRUCTURES: Heart normal size. No evidence for failure. BONES: No acute findings. HARDWARE: None in the chest. OTHER: No other significant finding. IMPRESSION: NO SIGNIFICANT RADIOGRAPHIC FINDING IN THE CHEST. TECHNICAL DOCUMENTATION: JOB ID: [id number] 2010 [employer]- All Rights Reserved Reading location - IP/workstation name: [email or web address]
--- NOTE | 2019-05-18 18:58 | EKG REPORT ---
SEVERITY:- BORDERLINE ECG - SINUS RHYTHM NONSPECIFIC ST-T CHANGES- INFERIOR LEADS : Confirmed by: Celestino Junior MD 18-May-2019 18:57:18
== END ==
LOC: OD 12:49
PROVIDERS: ATTEND Surgery
DX: Z01.818 Encounter for other preprocedural examination (principal); C18.7 Malignant neoplasm of sigmoid colon; I10 Essential (primary) hypertension; F17.200 Nicotine dependence, unspecified, uncomplicated; R05 Cough
CPT/HCPCS: 36415; 71046; 80048; 85027; 93005; 93010

== ENCOUNTER 2019-05-24 05:32 | Inpatient (IN) | payer MEDICAID ==
[~2019-05-24 05:32] MED LIST changes: +ACETAMINOPHEN 1,000 MG/100 ML RTUPB IV PRN; -BUPIVACAINE INJ/PF LIPOSOME/PF 266 MG/20 ML SDV INJ PRN; -CEFAZOLIN INJ 1 GM VIAL IV PRN; -CEFAZOLIN INJ 1 GM VIAL ONE; +CEFOXITIN SODIUM 2 GM in DEXTROSE 5%-WATER 100 ML IV PRN; -LANSOPRAZOLE 15 MG TAB.RAP.DR ONE; -LANSOPRAZOLE 15 MG TAB.RAP.DR PO PRN; -OXYCODONE HCL SR 10 MG TABLET PO ONE; -OXYCODONE HCL SR 10 MG TABLET PO PRN; +PREGABALIN 50 MG CAPSULE PO PRN; -VANCOMYCIN HCL 1,000 MG in DEXTROSE 5%-WATER 250 ML IV PRN
[2019-05-24] MEDS ORDERED: PREGABALIN 50 MG CAPSULE ONE (06:24)
[2019-05-24] MEDS ORDERED: METOPROLOL TARTRATE 25 MG TABLET ONE (06:40)
[2019-05-24] MEDS ORDERED: LOSARTAN POTASSIUM 50 MG TABLET PO ONE (06:45)
[2019-05-24] MEDS ORDERED: MIDAZOLAM 2 MG/2 ML INJ ONE (06:59)
[2019-05-24] MEDS ORDERED: FENTANYL CITRATE INJ/PF 100 MCG/2 ML AMPUL ONE ×2 (06:59→12:53)
[2019-05-24] MEDS ORDERED: PROPOFOL INJ 200 MG/20 ML VIAL IV ONE (07:00)
[2019-05-24] MEDS ORDERED: HYDROMORPHONE HCL INJ/PF 2 MG/ML AMPULE ONE (07:00)
[2019-05-24] MEDS ORDERED: LIDOCAINE 2% INJ (20 MG/ML) 20 ML MDV ONE (07:00)
[2019-05-24] MEDS ORDERED: BUPIVACAINE HCL 0.25 % INJ/PF (2.5 MG/1 ML) 30 ML VIAL ONE (07:22)
[2019-05-24] MEDS ORDERED: METOPROLOL TARTRATE 25 MG TABLET PO ONE (07:30)
[2019-05-24] MEDS ORDERED: METOPROLOL TARTRATE 50 MG TABLET PO ONE (07:30)
[2019-05-24] MEDS ORDERED: DIPHENHYDRAMINE HCL 50 MG/ML VIAL IV PRN (10:36)
[2019-05-24] MEDS ORDERED: ONDANSETRON HCL INJ/PF 4 MG/2 ML SDV IV PRN ×2 (10:36→12:46)
[2019-05-24] MEDS ORDERED: MEPERIDINE HCL/PF INJ 25 MG/1 ML DISP.SYRIN IV PRN (10:36)
[2019-05-24] MEDS ORDERED: MORPHINE SULFATE 10 MG/ML INJ IV PRN (10:36)
[2019-05-24] MEDS ORDERED: FENTANYL CITRATE INJ/PF 100 MCG/2 ML AMPUL IV PRN ×3 (10:36)
[2019-05-24] MEDS ORDERED: PROMETHAZINE HCL INJ 25 MG/1 ML VIAL IV PRN (10:36)
[2019-05-24] MEDS ORDERED: LABETALOL HCL INJ 20 MG/4 ML DISP.SYRIN IV ONE (12:17)
[2019-05-24] MEDS ORDERED: ALBUTEROL SULFATE HFA (90 MCG/PUFF) 8 GM MDI (1 MDI/ER DISP) IH PRN (12:45)
[2019-05-24] MEDS ORDERED: LABETALOL HCL INJ 20 MG/4 ML DISP.SYRIN IV PRN (12:53)
[2019-05-24] MEDS ORDERED: ALBUTEROL SULFATE HFA (90 MCG/PUFF) 8 GM MDI IH PRN (13:22)
[2019-05-24] MEDS ORDERED: ACETAMINOPHEN 1,000 MG/100 ML RTUPB IV ONE (13:24)
[2019-05-24] MEDS ORDERED: KETOROLAC TROMETHAMINE INJ/PF 30 MG/1 ML SDV ONE (13:24)
[2019-05-24] MEDS: METOPROLOL TARTRATE PF/INJ 5 MG/5 ML SDV IV ONE ×5 (13:30→13:50)
[2019-05-24] MEDS: MORPHINE SULFATE 10 MG/ML INJ ONE ×2 (13:55→14:00)
[2019-05-24] MEDS ORDERED: ROCURONIUM BROMIDE INJ 50 MG/5 ML VIAL IV ONE (14:38)
[2019-05-24] MEDS ORDERED: ONDANSETRON HCL INJ/PF 4 MG/2 ML SDV ONE (14:38)
[2019-05-24] MEDS ORDERED: GLYCOPYRROLATE 1 MG/5 ML VIAL ONE (14:38)
[2019-05-24] MEDS ORDERED: DEXAMETHASONE SOD PHOSPHATE INJ 4 MG/1 ML VIAL ONE (14:38)
[2019-05-24] MEDS ORDERED: NEOSTIGMINE METHYLSULFATE 10 MG/10 ML VIAL ONE (14:38)
[2019-05-24] MEDS: HYDRALAZINE HCL INJ/PF 20 MG/1 ML SDV IV PRN (15:20)
[2019-05-24] MEDS: KETOROLAC TROMETHAMINE INJ/PF 30 MG/1 ML SDV IV SCH ×2 (15:41→21:14)
[2019-05-24] MEDS: ACETAMINOPHEN 1,000 MG/100 ML RTUPB IV SCH ×2 (15:41→21:14)
[2019-05-24] MEDS: MORPHINE SULFATE 10 MG/ML INJ IV PRN ×2 (16:20→20:29)
[2019-05-24] MEDS: CEFOXITIN SODIUM 2 GM in DEXTROSE 5%-WATER 100 ML IV SCH ×2 (16:21→23:13)
[2019-05-24] MEDS ORDERED: INFLUENZA QUAD (6MOS+) 2019-20 VAC 0.5 ML SYR IM ONE (17:38)
[2019-05-24] MEDS: DEXTROSE 5%-LACTATED RINGERS 1,000 ML IV PRN (20:32)
[2019-05-24] MEDS: FAMOTIDINE INJ/PF 20 MG/2 ML SDV IV SCH (21:14)
[2019-05-24] MEDS ORDERED: FAMOTIDINE INJ/PF 20 MG/2 ML SDV IV SCH (22:00)
[2019-05-25] MEDS: MORPHINE SULFATE 10 MG/ML INJ IV PRN ×3 (04:27→19:51)
[2019-05-25] MEDS: ACETAMINOPHEN 1,000 MG/100 ML RTUPB IV SCH ×3 (05:48→21:44)
[2019-05-25] MEDS: KETOROLAC TROMETHAMINE INJ/PF 30 MG/1 ML SDV IV SCH ×3 (05:48→21:44)
[2019-05-25 06:34] LABS: ABSOLUTE BASOPHILS # (AUTO) 0.1 10^3/uL (0.0-0.2); ABSOLUTE LYMPHOCYTES (AUTO) 2.9 10^3/uL (0.5-4.7); ABSOLUTE NEUT (AUTO) 13.8 10^3/uL (1.7-8.2); BASOPHILS % (AUTO) 0.4 % (0-2); HEMOGLOBIN 9.6 g/dL (12.0-15.5); LYMPHOCYTES % (AUTO) 16.5 % (13-45); MEAN CORPUSCULAR HEMOGLOBIN 20.6 pg (27.0-33.4); MEAN CORPUSCULAR HGB CONC 34.1 g/dL (32.0-36.0); MEAN CORPUSCULAR VOLUME 61 fl (80-97); MONOCYTES % (AUTO) 5.6 % (3-13); PLATELET COUNT 270 10^3/uL (150-450); RED BLOOD COUNT 4.64 10^6/uL (3.72-5.28); RED CELL DISTRIBUTION WIDTH 19.8 % (11.5-14.0); SEGMENTED NEUTROPHILS % (AUTO) 77.5 % (42-78); TOTAL CELLS COUNTED % (AUTO) 100 %; WHITE BLOOD COUNT 17.8 10^3/uL (4.0-10.5)
[2019-05-25 06:50] LABS: ALBUMIN 3.3 g/dL (3.5-5.0); ALKALINE PHOSPHATASE 55 U/L (38-126); ANION GAP 6 (5-19); ASPARTATE AMINO TRANSFERASE 23 U/L (14-36); BILIRUBIN,TOTAL 0.5 mg/dL (0.2-1.3); BLOOD UREA NITROGEN 8 mg/dL (7-20); CALCIUM 9.2 mg/dL (8.4-10.2); CARBON DIOXIDE 29 mmol/L (22-30); CHLORIDE 103 mmol/L (98-107); GLUCOSE 143 mg/dL (75-110); POTASSIUM 3.8 mmol/L (3.6-5.0); TOTAL PROTEIN 6.2 g/dL (6.3-8.2)
[2019-05-25 07:21] LABS: ANISOCYTOSIS 2+; HYPOCHROMASIA 1+; PLATELET COMMENT ADEQUATE; TARGET CELLS 1+; TEAR DROP CELLS SLIGHT
[2019-05-25] MEDS: LOSARTAN POTASSIUM 50 MG TABLET PO SCH (09:13)
[2019-05-25] MEDS: FAMOTIDINE INJ/PF 20 MG/2 ML SDV IV SCH ×2 (09:13→21:44)
[2019-05-25] MEDS: DEXTROSE 5%-LACTATED RINGERS 1,000 ML IV PRN ×2 (09:20→19:50)
[2019-05-25] MEDS ORDERED: ENOXAPARIN SODIUM INJ 40 MG/0.4 ML DISP.SYRIN SUBCUT SCH (10:00)
--- NOTE | 2019-05-25 14:39 | PDOC PROGRESS REPORT ---
Subjective Progress Note for:: 05/25/19 Reason For Visit: C18.7 MALIGNANT NEOPLASM OF SIGMOID COLON Physical Exam Vital Signs: Temp Pulse Resp BP Pulse Ox 98.3 F 81 18 143/79 H 95 05/25/19 10:00 05/25/19 10:00 05/25/19 10:00 05/25/19 10:00 05/25/19 10:00 Intake & Output 05/24/19 05/25/19 05/26/19 06:59 06:59 06:59 Intake Total 4700 540 Output Total 4636 800 Balance 25 -260 Weight 108.86 kg 109.8 kg Results Laboratory Results: 05/25/19 05:44 05/25/19 05:44 05/25/19 05/25/19 05:44 05:44 WBC 17.8 H RBC 4.64 Hgb 9.6 L Hct 28.0 L MCV 61 L MCH 20.6 L MCHC 34.1 RDW 19.8 H Plt Count 270 Seg Neutrophils % 77.5 Sodium 138.0 Potassium 3.8 Chloride 103 Carbon Dioxide 29 Anion Gap 6 BUN 8 Creatinine 0.61 Est GFR ( Amer) > 60 Glucose 143 H Calcium 9.2 Total Bilirubin 0.5 AST 23 Alkaline Phosphatase 55 Total Protein 6.2 L Albumin 3.3 L Assessment & Plan - Diagnosis (1) Cancer of descending colon Is this a current diagnosis for this admission?: Yes - Plan Summary Plan Summary: This is a 53-year-old female status post laparoscopic left hemicolectomy for left-sided colon cancer. The patient is doing well today. She reports that her pain is controlled. I have encouraged her to get out of bed today. She should attempt ambulation in the hallways. I have also encouraged her to use her incentive spirometer aggressively. Her hypertension appears to be well controlled with medications. Continue IV fluids for now. She denies any bowel function at present. No nausea or vomiting reported today. Maintain Buckner today due to immobility. Plan to discontinue Buckner tomorrow. Repeat labs tomorrow.
[2019-05-25] MEDS ORDERED: DEXTROSE 40% GEL 15 GM TUBE PO PRN ×2 (19:41)
[2019-05-25] MEDS ORDERED: GLUCAGON,HUMAN RECOMB 1 MG INJ SUBCUT PRN (19:41)
[2019-05-25] MEDS ORDERED: DEXTROSE 50%-WATER 25 GM/50 ML DISP.SYRIN IV PRN ×2 (19:41)
[2019-05-25 20:27] LABS: INTERNATIONAL RATION (INR) 1.29; PROTHROMBIN TIME 16.2 SEC (11.4-15.4)
[2019-05-25 20:28] LABS: PARTIAL THROMBOPLASTIN TIME 37.7 SEC (23.5-35.8)
[2019-05-25 20:34] LABS: HEMATOCRIT 26.5 % (36.0-47.0); HEMOGLOBIN 9.2 g/dL (12.0-15.5); MEAN CORPUSCULAR HEMOGLOBIN 20.9 pg (27.0-33.4); MEAN CORPUSCULAR HGB CONC 34.6 g/dL (32.0-36.0); MEAN CORPUSCULAR VOLUME 60 fl (80-97); PLATELET COUNT 262 10^3/uL (150-450); RED BLOOD COUNT 4.39 10^6/uL (3.72-5.28); RED CELL DISTRIBUTION WIDTH 19.7 % (11.5-14.0)
[2019-05-26 05:33] LABS: ABSOLUTE BASOPHILS # (AUTO) 0.1 10^3/uL (0.0-0.2); ABSOLUTE LYMPHOCYTES (AUTO) 2.7 10^3/uL (0.5-4.7); ABSOLUTE MONOCYTES (AUTO) 0.8 10^3/uL (0.1-1.4); ABSOLUTE NEUT (AUTO) 10.8 10^3/uL (1.7-8.2); BASOPHILS % (AUTO) 0.5 % (0-2); EOSINOPHILS % (AUTO) 0.2 % (0-6); HEMOGLOBIN 8.6 g/dL (12.0-15.5); LYMPHOCYTES % (AUTO) 18.7 % (13-45); MEAN CORPUSCULAR HEMOGLOBIN 20.9 pg (27.0-33.4); MEAN CORPUSCULAR HGB CONC 34.3 g/dL (32.0-36.0); MEAN CORPUSCULAR VOLUME 61 fl (80-97); MONOCYTES % (AUTO) 5.8 % (3-13); PLATELET COUNT 241 10^3/uL (150-450); RED BLOOD COUNT 4.11 10^6/uL (3.72-5.28); RED CELL DISTRIBUTION WIDTH 19.9 % (11.5-14.0); SEGMENTED NEUTROPHILS % (AUTO) 74.8 % (42-78); TOTAL CELLS COUNTED % (AUTO) 100 %; WHITE BLOOD COUNT 14.5 10^3/uL (4.0-10.5)
[2019-05-26 05:50] LABS: ANION GAP 7 (5-19); BLOOD UREA NITROGEN 7 mg/dL (7-20); CARBON DIOXIDE 29 mmol/L (22-30); CHLORIDE 105 mmol/L (98-107); GLUCOSE 119 mg/dL (75-110); POTASSIUM 3.4 mmol/L (3.6-5.0)
[2019-05-26 06:04] LABS: ANISOCYTOSIS 2+; HYPOCHROMASIA 1+; PLATELET COMMENT ADEQUATE; POIKILOCYTOSIS SLIGHT; POLYCHROMASIA SLIGHT; TARGET CELLS SLIGHT
[2019-05-26] MEDS: ACETAMINOPHEN 1,000 MG/100 ML RTUPB IV SCH (06:11)
[2019-05-26] MEDS: KETOROLAC TROMETHAMINE INJ/PF 30 MG/1 ML SDV IV SCH (06:12)
[2019-05-26] MEDS: MORPHINE SULFATE 10 MG/ML INJ IV PRN ×2 (07:39→13:44)
[2019-05-26] MEDS ORDERED: POTASSI CL 20 MEQ/50 ML RIDER 20 MEQ/50 ML RTUPB IV ONE (08:00)
[2019-05-26] MEDS: LOSARTAN POTASSIUM 50 MG TABLET PO SCH (09:15)
[2019-05-26] MEDS: FAMOTIDINE INJ/PF 20 MG/2 ML SDV IV SCH ×2 (09:16→22:05)
[2019-05-26] MEDS ORDERED: DEXTROSE 5%-LACTATED RINGERS 1,000 ML IV PRN (11:31)
--- NOTE | 2019-05-26 11:36 | PDOC PROGRESS REPORT ---
Subjective Progress Note for:: 05/26/19 Reason For Visit: C18.7 MALIGNANT NEOPLASM OF SIGMOID COLON Physical Exam Vital Signs: Temp Pulse Resp BP Pulse Ox 98.9 F 102 H 18 150/82 H 96 05/26/19 07:25 05/26/19 07:25 05/26/19 07:25 05/26/19 07:25 05/26/19 07:25 Intake & Output 05/25/19 05/26/19 05/27/19 06:59 06:59 06:59 Intake Total 4700 2590 150 Output Total 4675 3400 Balance 25 -810 150 Weight 109.8 kg 109.8 kg Results Laboratory Results: 05/26/19 04:47 05/26/19 04:47 05/25/19 05/26/19 05/26/19 20:09 04:47 04:47 WBC 15.0 H 14.5 H RBC 4.39 4.11 Hgb 9.2 L 8.6 L Hct 26.5 L 25.0 L MCV 60 L 61 L MCH 20.9 L 20.9 L MCHC 34.6 34.3 RDW 19.7 H 19.9 H Plt Count 262 241 Seg Neutrophils % 74.8 Sodium 141.0 Potassium 3.4 L Chloride 105 Carbon Dioxide 29 Anion Gap 7 BUN 7 Creatinine 0.53 Est GFR ( Amer) > 60 Glucose 119 H Calcium 9.0 Assessment & Plan - Diagnosis (1) Cancer of descending colon Is this a current diagnosis for this admission?: Yes - Plan Summary Plan Summary: This is a 53-year-old female status post laparoscopic left hemicolectomy for left-sided colon cancer. The patient is doing well today. She reports that her pain is controlled. I have encouraged her to get out of bed today. Continue with ambulation in the hallways. I have also encouraged her to use her incentive spirometer aggressively. Her hypertension appears to be well controlled with medications. No nausea or vomiting reported today. She had several BM's yesterday, 2 of which were bloody. Stop Lovenox and Toradol due to rectal bleeding. Add oral pain meds. d/c Buckner catheter. OOB, Pulmonary toilet. Decrease IVF. Repeat labs tomorrow.
[2019-05-26] MEDS ORDERED: DIPHENHYDRAMINE HCL 50 MG CAPSULE PO PRN (16:06)
[2019-05-26] MEDS: HYDROCODONE/ACETAMINOPHEN 10-325 MG TABLET PO PRN (19:34)
[2019-05-26] MEDS: HYDRALAZINE HCL INJ/PF 20 MG/1 ML SDV IV PRN (20:10)
[2019-05-27] MEDS: HYDROCODONE/ACETAMINOPHEN 10-325 MG TABLET PO PRN (05:44)
[2019-05-27 06:37] LABS: HEMATOCRIT 27.8 % (36.0-47.0); HEMOGLOBIN 9.2 g/dL (12.0-15.5); MEAN CORPUSCULAR HEMOGLOBIN 20.2 pg (27.0-33.4); MEAN CORPUSCULAR HGB CONC 33.1 g/dL (32.0-36.0); MEAN CORPUSCULAR VOLUME 61 fl (80-97); PLATELET COUNT 258 10^3/uL (150-450); RED BLOOD COUNT 4.56 10^6/uL (3.72-5.28); RED CELL DISTRIBUTION WIDTH 20.1 % (11.5-14.0); WHITE BLOOD COUNT 14.3 10^3/uL (4.0-10.5)
[2019-05-27 06:47] LABS: ALBUMIN 3.2 g/dL (3.5-5.0); ALKALINE PHOSPHATASE 62 U/L (38-126); ANION GAP 8 (5-19); ASPARTATE AMINO TRANSFERASE 21 U/L (14-36); BILIRUBIN,DIRECT 0.3 mg/dL (0.0-0.4); BILIRUBIN,TOTAL 0.6 mg/dL (0.2-1.3); BLOOD UREA NITROGEN 6 mg/dL (7-20); CALCIUM 8.9 mg/dL (8.4-10.2); CARBON DIOXIDE 27 mmol/L (22-30); CHLORIDE 104 mmol/L (98-107); GLUCOSE 99 mg/dL (75-110); POTASSIUM 3.3 mmol/L (3.6-5.0); TOTAL PROTEIN 6.5 g/dL (6.3-8.2)
[2019-05-27 07:14] LABS: ABSOLUTE MONOCYTES # (MANUAL) 0.3 10^3/uL (0.1-1.4); BASOPHILS % (MANUAL) 1 % (0-2); EOSINOPHILS % (MANUAL) 1 % (0-6); LYMPHOCYTES % (MANUAL) 7 % (13-45); MONOCYTES % (MANUAL) 2 % (3-13); SEGMENTED NEUTROPHILS % (MAN) 89 % (42-78); TOTAL CELLS COUNTED 100
[2019-05-27 07:16] LABS: ANISOCYTOSIS 2+; HYPOCHROMASIA 1+; PLATELET COMMENT ADEQUATE; POLYCHROMASIA SLIGHT; SCHISTOCYTES SLIGHT; TARGET CELLS SLIGHT; TOXIC GRANULATION SLIGHT
[2019-05-27] MEDS: LOSARTAN POTASSIUM 50 MG TABLET PO SCH (09:48)
[2019-05-27] MEDS: FAMOTIDINE INJ/PF 20 MG/2 ML SDV IV SCH (09:49)
[2019-05-27] MEDS ORDERED: POTASSIUM CHLORIDE 10 MEQ TABLET.ER PO SCH (10:30)
[2019-05-27] MEDS ORDERED: FUROSEMIDE 40 MG TABLET PO SCH (10:30)
[2019-05-27] MEDS ORDERED: HYDRALAZINE HCL INJ/PF 20 MG/1 ML SDV IV PRN (11:00)
--- NOTE | 2019-05-27 12:27 | PDOC DISCHARGE SUMMARY ---
General - Admit/Disc Date/PCP Admission Date/Primary Care Provider: 05/24/19 05:32 JUAN SALOMON MD Discharge Date: 05/27/19 - Discharge Diagnosis Final Diagnosis: colon cancer, sigmoid colon - Assessment Summary: This is a 53-year-old female with a near obstructing lesion in the sigmoid colon. The patient was admitted to the hospital, and taken to surgery for definitive surgical resection. Patient underwent laparoscopic left hemicolectomy with primary colorectal anastomosis. The patient was taken to the floor in stable condition. On postoperative day #1, the patient began ambulating. By postoperative day 2 her Buckner catheter was removed, and she began to pass flatus. By postoperative day #3, the patient was ambulating normally, tolerating a diet, having bowel movements, and able to shower. Her pain was adequately controlled with oral pain medications, and it was felt that she had reached maximal hospital benefit. At this time she is medically fit for discharge. - Additional Information Resuscitation Status: Full Code Discharge Diet: As Tolerated Discharge Activity: Balance Activity w/Rest, No Lifting Over 10 Pounds, No Lifting/Push/Pulling Referrals: DOMONIQUE HOROWITZ MD [ACTIVE STAFF] - 06/08/19 11:00 am Prescriptions: Ibuprofen [Motrin 800 mg Tablet] 800 mg PO MEALS #42 tablet Hydrocodone/Acetaminophen [Herndon 10-325 mg Tablet] 1 tab PO Q6HP PRN #28 tablet PRN Reason: Home Medications: Furosemide [Lasix 40 mg Tablet] 40 mg PO DAILY 02/18/19 Losartan Potassium [Cozaar 100 mg Tablet] 100 mg PO DAILY 02/18/19 Hydrocodone/Acetaminophen [Herndon 10-325 mg Tablet] 1 tab PO Q6HP PRN #28 tablet 05/27/19 Ibuprofen [Motrin 800 mg Tablet] 800 mg PO MEALS #42 tablet 05/27/19 Additional Information: Discharge home. Diet as tolerated. Activity: No lifting greater than 10 pounds x 6 weeks. Follow-up with me in 7 to 10 days. Herndon 10/325 mg p.o. every 6 hours as needed for pain. Ibuprofen 800 mg p.o. 3 times daily with meals. Okay to shower. Change dressing daily and as needed. No hot tubs, swimming pools, or tub baths until complete healing of incisions. History of Present Illiness History of Present Illness: DEANA MURRAY is a 53 year old female Physical Exam Vital Signs: Temp Pulse Resp BP Pulse Ox 99.4 F 107 H 16 151/98 H 99 05/27/19 08:13 05/27/19 08:13 05/27/19 08:13 05/27/19 08:13 05/27/19 08:13 Intake & Output 05/26/19 05/27/19 05/28/19 06:59 06:59 06:59 Intake Total 2590 1130 Output Total 3400 Balance -810 1130 Weight 109.8 kg 107.8 kg Results Laboratory Results: WBC 14.3 10^3/uL (4.0-10.5) H 05/27/19 05:22 RBC 4.56 10^6/uL (3.72-5.28) 05/27/19 05:22 Hgb 9.2 g/dL (12.0-15.5) L 05/27/19 05:22 Hct 27.8 % (36.0-47.0) L 05/27/19 05:22 MCV 61 fl (80-97) L 05/27/19 05:22 MCH 20.2 pg (27.0-33.4) L 05/27/19 05:22 MCHC 33.1 g/dL (32.0-36.0) 05/27/19 05:22 RDW 20.1 % (11.5-14.0) H 05/27/19 05:22 Plt Count 258 10^3/uL (150-450) 05/27/19 05:22 Lymph % (Auto) Not Reportable 05/27/19 05:22 [place] % (Auto) Not Reportable 05/27/19 05:22 Eos % (Auto) Not Reportable 05/27/19 05:22 Baso % (Auto) Not Reportable 05/27/19 05:22 Absolute Neuts (auto) Not Reportable 05/27/19 05:22 Absolute Lymphs (auto) Not Reportable 05/27/19 05:22 Absolute Monos (auto) Not Reportable 05/27/19 05:22 Absolute Eos (auto) Not Reportable 05/27/19 05:22 Absolute Basos (auto) Not Reportable 05/27/19 05:22 Total Counted 100 05/27/19 05:22 Seg Neutrophils % Not Reportable 05/27/19 05:22 Seg Neuts % (Manual) 89 % (42-78) H 05/27/19 05:22 Lymphocytes % (Manual) 7 % (13-45) L 05/27/19 05:22 Monocytes % (Manual) 2 % (3-13) L 05/27/19 05:22 Eosinophils % (Manual) 1 % (0-6) 05/27/19 05:22 Basophils % (Manual) 1 % (0-2) 05/27/19 05:22 Abs Neuts (Manual) 12.7 10^3/uL (1.7-8.2) H 05/27/19 05:22 Abs Lymphs (Manual) 1.0 10^3/uL (0.5-4.7) 05/27/19 05:22 Abs Monocytes (Manual) 0.3 10^3/uL (0.1-1.4) 05/27/19 05:22 Absolute Eos (Manual) 0.1 10^3/uL (0.0-0.6) 05/27/19 05:22 Abs Basophils (Manual) 0.1 10^3/uL (0.0-0.2) 05/27/19 05:22 Toxic Granulation SLIGHT 05/27/19 05:22 Platelet Comment ADEQUATE 05/27/19 05:22 Polychromasia SLIGHT 05/27/19 05:22 Hypochromasia 1+ 05/27/19 05:22 Poikilocytosis SLIGHT 05/26/19 04:47 Anisocytosis 2+ 05/27/19 05:22 Microcytosis 3+ 05/26/19 04:47 Target Cells SLIGHT 05/27/19 05:22 Tear Drop Cells SLIGHT 05/25/19 05:44 Schistocytes SLIGHT 05/27/19 05:22 PT 16.2 SEC (11.4-15.4) H 05/25/19 20:09 INR 1.29 05/25/19 20:09 APTT 37.7 SEC (23.5-35.8) H 05/25/19 20:09 Sodium 138.8 mmol/L (137-145) 05/27/19 05:22 Potassium 3.3 mmol/L (3.6-5.0) L 05/27/19 05:22 Chloride 104 mmol/L (98-107) 05/27/19 05:22 Carbon Dioxide 27 mmol/L (22-30) 05/27/19 05:22 Anion Gap 8 (5-19) 05/27/19 05:22 BUN 6 mg/dL (7-20) L 05/27/19 05:22 Creatinine 0.54 mg/dL (0.52-1.25) 05/27/19 05:22 Est GFR ( Amer) > 60 (>60) 05/27/19 05:22 Est GFR (MDRD) Non-Af > 60 (>60) 05/27/19 05:22 Glucose 99 mg/dL (75-110) 05/27/19 05:22 Calcium 8.9 mg/dL (8.4-10.2) 05/27/19 05:22 Total Bilirubin 0.6 mg/dL (0.2-1.3) 05/27/19 05:22 Direct Bilirubin 0.3 mg/dL (0.0-0.4) 05/27/19 05:22 Neonat Total Bilirubin Not Reportable 05/27/19 05:22 Neonat Direct Bilirubin Not Reportable 05/27/19 05:22 Neonat Indirect Bili Not Reportable 05/27/19 05:22 AST 21 U/L (14-36) 05/27/19 05:22 ALT 14 U/L (<35) 05/27/19 05:22 Alkaline Phosphatase 62 U/L (38-126) 05/27/19 05:22 Total Protein 6.5 g/dL (6.3-8.2) 05/27/19 05:22 Albumin 3.2 g/dL (3.5-5.0) L 05/27/19 05:22 Blood Type AB POSITIVE 05/24/19 06:16 Antibody Screen NEGATIVE 05/24/19 06:16
[2019-05-27 12:42] VITALS: BP 129/76
--- NOTE | 2019-06-08 09:00 | Operative Report ---
Nonrecallable Operative Report DATE OF SURGERY: 05/24/19 PREOPERATIVE DIAGNOSIS: sigmoid colon cancer POSTOPERATIVE DIAGNOSIS: sigmoid colon cancer OPERATION: 1. Laparoscopic left hemicolectomy. 2. Laparoscopic splenic flexure mobilization. 3. Stapled 29 EEA colorectal anastomosis. 4. Flexible sigmoidoscopy. SURGEON: DOMONIQUE GARCIA LIFE INSURANCE SPECIALIST: NYDIA STEEL ANESTHESIA: GA TISSUE REMOVED OR ALTERED: Left hemicolectomy COMPLICATIONS: None apparent ESTIMATED BLOOD LOSS: 100 cc PROCEDURE: Drains/implants: None. Procedure in detail: After informed consent was obtained, the patient was brought to the operating room and laid in the low-lithotomy position. The area of the abdomen was prepped and draped in a normal sterile fashion. A supraumbilical incision was created with a 15 blade scalpel. Dissection was carried through the subcutaneous tissues using sharp and blunt dissection. The cicatrix was identified, grasped with a Angeles clamp, and retracted upwards. The linea alba fascia was incised sharply, the abdomen was entered sharply. The balloon trocar was inserted, and pneumoperitoneum was achieved. Next a 5 mm left lower quadrant trocar was placed, a 5 mm right upper quadrant trocar was placed, an 11 mm right lower quadrant trocar was placed. This was a ll performed under direct laparoscopic visualization. Graspers were used to elevate the sigmoid colon. Dissection was begun anterior to the sacral promontory. The dissection was then carried out in a medial to lateral fashion. The mesentery was elevated away from the retroperitoneum. The ureter was identified, and spared from injury along its course. Dissection was carried cranially, until the base of the NICHELLE was reached. The NICHELLE was divided using the Pella 60 stapler with vascular load. Next, the dissection was continued cranially. The mesentery was divided up to the distal transverse colon. Next, the white line of Toldt on the left was taken down, medializing the descending colon. The tumor was in the sigmoid colon, and was easily identified secondary to previous tattooing. The dissection was carried down onto the proximal rectum, to ensure adequate margin. The proximal rectum was divided using the Pella 60 stapler. Once this was completed, attention was turned to m obilization of the splenic flexure. The white line of Toldt was divided on the left side, up to the spleen. The splenocolic ligament was then divided. The omentum was then freed from the entirety of the transverse colon and reflected cranially. Next, the transverse colon was completely freed, so that it would reach into the pelvis. Once this was performed , the splenic flexure mobilization was completed. Attention was then turned to extraction of the specimen. The patient had a previous Pfannenstiel scar. An incision was created within the bounds of the previous scar. Dissection was carried down to the abdominal wall. The midline was incised craniocaudally, and the abdomen was entered sharply. The Ismael wound retractor was placed onto the patient. The sigmoid and descending colon were then exteriorized. A well vascularized portion of the distal transverse colon was then chosen as the point of division. The colon was then divided using curved De La Rosa scissors. The specimen was then passed off the field and sent to pathology. The 29 EEA anvil was inserted into the distal transverse colon. It was sutured into place using 2-0 Vicryl suture. Next, the EEA sizers were passed up the rectum, to the staple line. The 25, 29, and 31 sizer passed easily to the staple line. Next, the 29 EEA stapler was passed up the rectum, and to the staple line. The spike was deployed through the staple line. The anvil was attached to the spike, the stapler was closed, and then the device was fired according to aircraft instrument tester recommendation. The stapler was removed. There were 2 complete donuts of tissue within the stapler. These were sent to pathology as well. Next attention was turned to testing of the staple line. The pelvis was filled with fluid, and the transverse colon was clamped with a bowel clamp. The flexible sigmoidoscope was inserted into the rectum. The scope was passed up to the staple line. The staple line was visualized, and appeared intact. Air was insufflated into the rectum. The rectum was well distended. Air was seen to pass out of the anus, around the scope. No air was seen to be escaping through the staple line, into the pelvis. This confirmed that the anastomosis was air and watertight. After this was confirmed, I scrubbed back into the case. The abdomen was then copiously irrigated and suctioned, until the effluent was clear. The right lower quadrant 11 mm trocar was removed. The resulting defect was closed using 0 Vicryl suture with the aid of the Kervin-Karmen device. The 12 mm supraumbilical port was removed and closed in similar fashion. The 5 mm trochars were then removed. The Ismael wound retractor was removed. The lower midline incision was closed using #1 PDS suture in simple running fashion. The overlying skin was then closed using skin earle. Dressings were placed, and the procedure was concluded. All sponge, instrument, and needle counts were correct x2. Condition: Stable. Nydia Steel PA-C was scrubbed and present the entirety of the procedure. She assisted with all portions of the procedure including opening of the abdomen, placement of the trochars, manipulation of the colon, freeing of the splenic flexure, division of the colon, creation of the anastomosis, testing of the anastomosis, closure of the fascia, and closure of the skin.
== END 2019-05-27 13:09 | disposition home or self-care (01) | DRG 331 ==
LOC: INOR 05:32 → 5 15:15
PROVIDERS: ADMIT Surgery; ATTEND Surgery
PROC: 0DTG0ZZ Resection of Left Large Intestine, Open Approach (ICD-10-PCS; principal; 2019-05-24 07:30)
DX: C18.7 Malignant neoplasm of sigmoid colon (principal); I10 Essential (primary) hypertension
CPT/HCPCS: 36415; 80048; 80053; 840; 84132; 85025; 85610; 85730; 86850; 86900; 86901; 88305; 88309; 90686; 94799; J0131; J0360; J0694; J1100; J1170; J1650; J1741; J1885; J2250; J2270; J2405; J2704; J2710; J3010; J3480; J3490; J7050; J7060; J7121; S0028

== ENCOUNTER 2019-11-04 12:38 | Outpatient (CLI) | payer MEDICAID ==
[~2019-11-04 12:38] MED LIST changes: -ACETAMINOPHEN 1,000 MG/100 ML RTUPB IV PRN; -CEFOXITIN SODIUM 2 GM in DEXTROSE 5%-WATER 100 ML IV PRN; +FERRIC CARBOXYMALTOSE 750 MG in NORMAL SALINE 250 ML IV PRN; -IBUPROFEN 800 MG in NORMAL SALINE 250 ML IV PRN; -LACTATED RINGERS 1000 ML IV PRN; -LIDOCAINE 0.5% INJ-PF (5 MG/ML) 50 ML SDV SUBCUT PRN; -PREGABALIN 50 MG CAPSULE PO PRN
[2019-11-04 13:02] VITALS: BP 129/79
== END 2019-11-04 14:01 | disposition home or self-care (01) ==
LOC: II 12:38 → 5TH 12:58 → II 14:01
PROVIDERS: ATTEND Internal Medicine
DX: D50.9 Iron deficiency anemia, unspecified (principal); Z18.9 Retained foreign body fragments, unspecified material
CPT/HCPCS: 96374; J7050; J1439

== ENCOUNTER 2019-11-11 12:55 | Outpatient (CLI) | payer MEDICAID ==
[2019-11-11 13:12] VITALS: BP 168/96
== END 2019-11-11 13:50 | disposition home or self-care (01) ==
LOC: II 12:55 → 5TH 13:12 → II 13:50
PROVIDERS: ATTEND Internal Medicine
DX: D50.9 Iron deficiency anemia, unspecified (principal); Z18.9 Retained foreign body fragments, unspecified material
CPT/HCPCS: 96374; J7050; J1439

== ENCOUNTER 2020-02-05 22:35 | Inpatient (IN) | payer MEDICAID ==
[2020-02-05] MEDS ORDERED: RINGERS SOLUTION,LACTATED 1,000 ML IV ONE (23:25)
[2020-02-05] MEDS ORDERED: ONDANSETRON HCL INJ/PF 4 MG/2 ML SDV IV ONE (23:25)
[2020-02-05] MEDS ORDERED: ACETAMINOPHEN 325 MG TABLET PO ONE (23:27)
--- NOTE | 2020-02-05 23:28 | ER Document Report ---
ED Medical Screen (RME) - General Chief Complaint: Nausea/Vomiting Stated Complaint: CONGESTED/VOMITING Time Seen by Provider: 02/05/20 23:19 Primary Care Provider: JUAN SALOMON MD [Primary Care Provider] - Follow up as needed Mode of Arrival: Wheelchair Information source: Patient Notes: HPI; 54-year-old female with a history of colon cancer and colon resection presents to the emergency room complaining of sinus congestion, headache for the past 6 days. Has tried multiple [id number] medications including TheraFlu, DayQuil, NyQuil, Mucinex without relief. States she started with nausea vomiting abdominal pain last night. States symptoms have worsened today. Also complains of a cough. No fever. But does complain of a decreased appetite PE: Alert and oriented x3. Lungs with wheezes and rhonchi no rales. Heart: Tachycardic without murmurs, rubs, gallops. Unable to do full abdominal exam in triage. I have greeted and performed a rapid initial assessment of this patient. A comprehensive ED assessment and evaluation of the patient, analysis of test results and completion of the medical decision making process will be conducted by additional ED providers. I have specifically instructed the patient or family members with the patient to immediately return to any nursing staff should anything change in the patient's condition or with their chief complaint. TRAVEL OUTSIDE OF THE [place] IN LAST 30 DAYS: No - Related Data Allergies/Adverse Reactions: lisinopril Allergy (Verified 05/24/19 05:54) Angioneurotic Edema Past Medical History - Past Medical History Cardiac Medical History: Reports: Hx Hypertension Denies: Hx Atrial Fibrillation, Hx Congestive Heart Failure, Hx Coronary Artery Disease, Hx Heart Attack, Hx Hypercholesterolemia, Hx Peripheral Vascular Disease, Hx Heart Murmur Pulmonary Medical History: Denies: Hx Asthma, Hx Bronchitis, Hx COPD, Hx Sleep Apnea Neurological Medical History: Denies: Hx Cerebrovascular Accident, Hx Seizures Endocrine Medical History: Denies: Hx Diabetes Mellitus Type 1, Hx Diabetes Mellitus Type 2, Hx Hyperthyroidism, Hx Hypothyroidism Renal/ Medical History: Reports: Hx Ovarian Cysts. Denies: Hx Kidney Stones, Hx Peritoneal Dialysis, Hx Pelvic Inflammatory Disease Malignancy Medical History: Denies: Hx Breast Cancer, Hx Cervical Cancer, Hx Ovarian Cancer GI Medical History: Denies: Hx Crohn's Disease, Hx Gastroesophageal Reflux Disease, Hx Hiatal Hernia, Hx Irritable Bowel, Hx Liver Failure, Hx Pancreatitis, Hx Ulcer Musculoskeltal Medical History: Reports Hx Arthritis - knees, Denies Hx Fibromyalgia, Denies Hx Muscular Dystrophy, Reports Hx Musculoskeletal Deformity, Reports Hx Musculoskeletal Trauma Psychiatric Medical History: Denies: Hx Bipolar Disorder, Hx Depression, Hx Post Traumatic Stress Disorder Traumatic Medical History: Denies: Hx Fractures Past Surgical History: Reports: Hx Section - x1, Hx Gynecologic Surgery - Right salpingo-oophorectomy, Hx Hysterectomy, Hx Tubal Ligation. Denies: Hx Appendectomy, Hx Bowel Surgery, Hx Cholecystectomy, Hx Colostomy, Hx Coronary Artery Bypass Graft, Hx Gastric Bypass Surgery, Hx Herniorrhaphy, Hx Mastectomy, Hx Tonsillectomy - Immunizations Hx Diphtheria, Pertussis, Tetanus Vaccination: Yes Physical Exam - Vital signs Vitals: Temp Pulse BP Pulse Ox 100.5 F H 118 H 125/80 92 02/05/20 22:46 02/05/20 22:46 02/05/20 22:46 02/05/20 22:46 Course - Vital Signs Vital signs: Temp Pulse Resp BP Pulse Ox 100.5 F H 118 H 125/80 92 02/05/20 22:46 02/05/20 22:46 02/05/20 22:46 02/05/20 22:46 Doctor's Discharge - Discharge Referrals: JUAN SALOMON MD [Primary Care Provider] - Follow up as needed
[2020-02-06] MEDS ORDERED: IPRATROPIUM/ALBUTEROL 0.5-2.5 MG/3 ML AMPUL NEB ONE (00:58)
--- NOTE | 2020-02-06 01:00 | RADIOLOGY REPORT (SQ) ---
EXAM DESCRIPTION: Site: CHEST SINGLE VIEW RP: XR CHEST 1 VIEW CLINICAL HISTORY: 54 years Female; cough; COMPARISON: 05/18/2019 FINDINGS: Lungs: Lungs are clear, with no focal infiltrate, pneumothorax, or pleural effusion. Mediastinum: Mediastinum is within normal limits for this positioning. Bones: Bony structures are unremarkable. IMPRESSION: 1. No acute pulmonary findings.
--- NOTE | 2020-02-06 01:10 | ER Document Report ---
ED General - General Chief Complaint: Flu Symptoms Stated Complaint: CONGESTED/VOMITING Time Seen by Provider: 02/05/20 23:19 Primary Care Provider: JUAN SALOMON MD [Primary Care Provider] - Follow up as needed Mode of Arrival: Wheelchair Information source: Patient Notes: Patient is a 54-year-old -[place] female coming in today with sinus pressure, headache, cough, wheezing, abdominal pain with nausea and vomiting. She has a low-grade fever and chills today. She has not had a Covid test. Has not had a flu test. TRAVEL OUTSIDE OF THE [place] IN LAST 30 DAYS: No - Related Data Allergies/Adverse Reactions: lisinopril Allergy (Verified 05/24/19 05:54) Angioneurotic Edema Home Medications: amilodipine, inhaler, Past Medical History - General Information source: Patient - Social History Smoking Status: Current Every Day Smoker Family History: Reviewed & Not Pertinent, CAD, DM, Hypertension - Past Medical History Cardiac Medical History: Reports: Hx Hypertension Denies: Hx Atrial Fibrillation, Hx Congestive Heart Failure, Hx Coronary Artery Disease, Hx Heart Attack, Hx Hypercholesterolemia, Hx Peripheral Vascular Disease, Hx Heart Murmur Pulmonary Medical History: Denies: Hx Asthma, Hx Bronchitis, Hx COPD, Hx Sleep Apnea Neurological Medical History: Denies: Hx Cerebrovascular Accident, Hx Seizures Endocrine Medical History: Denies: Hx Diabetes Mellitus Type 1, Hx Diabetes Mellitus Type 2, Hx Hyperthyroidism, Hx Hypothyroidism Renal/ Medical History: Reports: Hx Ovarian Cysts. Denies: Hx Kidney Stones, Hx Peritoneal Dialysis, Hx Pelvic Inflammatory Disease Malignancy Medical History: Denies: Hx Breast Cancer, Hx Cervical Cancer, Hx Ova adriane Cancer GI Medical History: Denies: Hx Crohn's Disease, Hx Gastroesophageal Reflux Disease, Hx Hiatal Hernia, Hx Irritable Bowel, Hx Liver Failure, Hx Pancreatitis, Hx Ulcer Musculoskeletal Medical History: Reports Hx Arthritis - knees, Denies Hx Fibromyalgia, Denies Hx Muscular Dystrophy, Reports Hx Musculoskeletal Deformity, Reports Hx Musculoskeletal Trauma Psychiatric Medical History: Denies: Hx Bipolar Disorder, Hx Depression, Hx Post Traumatic Stress Disorder Traumatic Medical History: Denies: Hx Fractures Past Surgical History: Reports: Hx Section - x1, Hx Gynecologic Surgery - Right salpingo-oophorectomy, Hx Hysterectomy, Hx Tubal Ligation. Denies: Hx Appendectomy, Hx Bowel Surgery, Hx Cholecystectomy, Hx Colostomy, Hx Coronary Artery Bypass Graft, Hx Gastric Bypass Surgery, Hx Herniorrhaphy, Hx Mastectomy, Hx Tonsillectomy - Immunizations Hx Diphtheria, Pertussis, Tetanus Vaccination: Yes Review of Systems - Review of Systems Notes: Constitutional: Positive for fevers and chills EENT: No eye redness. No eye pain. No ear pain. No sore throat. Cardiovascular: No chest pain. No palpitations. Respiratory: Positive for cough and shortness of breath Gastrointestinal: Positive for abdominal pain with nausea and vomiting Genitourinary: Atraumatic. No lesions. No pain. No discharge. Musculoskeletal: Atraumatic. No swelling. No deformities. Skin: No rash or lesions. Lymphatic: No swollen lymph nodes. Neurologic: Positive for headache. No syncope. Psychiatric: No suicidal or homicidal ideation. Physical Exam - Vital signs Vitals: Temp Pulse BP Pulse Ox 100.5 F H 118 H 125/80 92 02/05/20 22:46 02/05/20 22:46 02/05/20 22:46 02/05/20 22:46 - Notes Notes: General: Well-developed, well-nourished. In no acute distress. Non-toxic appearing. Cardiac: Well-perfused. Regular rate and rhythm. No murmurs, rubs, or gallops. Pulmonary: Mild end expiratory wheezes bilaterally. No respiratory distress. Abdominal: Non-distended. Non-rigid. Bowels sounds are present in all four quadrants. No guarding or rebound. HEENT: Head is atraumatic. Conjunctivae not reddened. No tearing. PERRL. EOMI. Orbits atraumatic. No periorbital swelling or erythema. Oropharynx is without erythema, swelling, or exudates. Neck: Supple. No adenopathy. No meningismus. Dermatologic: Warm with good turgor. No rash. Atraumatic. Chest: Atraumatic. No chest wall tenderness to palpation. Musculoskeletal: Moves all extremities well. No range of motion deficits. no muscular or joint tenderness. No paraspinal muscle tenderness. no midline spinal tenderness or step-off. Genitourinary: Examination deferred Neurologic: No gross neurologic deficits. Psychiatric: Normal mood. Course - Re-evaluation Re-evalutation: 02/06/20 03:47 Patient has defervesced a little bit. Unfortunately she is still hypoxic on room air tachycardic and even worse so when she stands up. CT scan shows the groundglass opacities in the bases of the lungs concerning for COVID-19. We will try to get the patient admitted for further treatment. - Vital Signs Vital signs: Temp Pulse Resp BP Pulse Ox 100.4 F 144 H 125/80 86 L 02/06/20 03:22 02/06/20 03:24 02/05/20 22:46 02/06/20 03:24 - Laboratory Result Diagrams: 02/06/20 01:00 02/06/20 01:00 Laboratory results interpreted by me: 02/06/20 02/06/20 02/06/20 01:00 01:00 02:00 WBC 21.0 H RBC 6.30 H Hgb 16.5 H MCV 75 L MCH 26.3 L RDW 16.5 H Seg Neuts % (Manual) 83 H Abs Neuts (Manual) 17.4 H BUN 6 L Glucose 121 H Urine Urobilinogen 4.0 H Discharge - Discharge Clinical Impression: COVID-19 Pneumonia Qualifiers: Pneumonia type: due to unspecified organism Laterality: bilateral Lung location: lower lobe of lung Qualified Code(s): J18.9 - Pneumonia, unspecified organism Condition: Good Disposition: ADMITTED INPATIENT Admitting Provider: [facility] Unit Admitted: [facility]U Referrals: JUAN SALOMON MD [Primary Care Provider] - Follow up as needed
[2020-02-06 01:28] LABS: HEMATOCRIT 46.9 % (36.0-47.0); HEMOGLOBIN 16.5 g/dL (12.0-15.5); MEAN CORPUSCULAR HEMOGLOBIN 26.3 pg (27.0-33.4); MEAN CORPUSCULAR HGB CONC 35.3 g/dL (32.0-36.0); MEAN CORPUSCULAR VOLUME 75 fl (80-97); RED CELL DISTRIBUTION WIDTH 16.5 % (11.5-14.0)
[2020-02-06 02:08] LABS: ALBUMIN 4.1 g/dL (3.5-5.0); ALKALINE PHOSPHATASE 101 U/L (38-126); ANION GAP 13 (5-19); ASPARTATE AMINO TRANSFERASE 32 U/L (14-36); BILIRUBIN,DIRECT 0.4 mg/dL (0.0-0.4); BILIRUBIN,TOTAL 1.2 mg/dL (0.2-1.3); BLOOD UREA NITROGEN 6 mg/dL (7-20); CALCIUM 9.4 mg/dL (8.4-10.2); CARBON DIOXIDE 26 mmol/L (22-30); CHLORIDE 98 mmol/L (98-107); GLUCOSE 121 mg/dL (75-110); PLATELET COUNT 220 10^3/uL (150-450); POTASSIUM 3.6 mmol/L (3.6-5.0); TOTAL PROTEIN 7.7 g/dL (6.3-8.2)
[2020-02-06 02:09] LABS: A TYPE INFLUENZA AG NEGATIVE (NEGATIVE); B INFLUENZA AG NEGATIVE (NEGATIVE)
[2020-02-06 02:10] LABS: ABSOLUTE LYMPHOCYTES# (MANUAL) 2.7 10^3/uL (0.5-4.7); ABSOLUTE MONOCYTES # (MANUAL) 0.8 10^3/uL (0.1-1.4); BASOPHILS % (MANUAL) 0 % (0-2); EOSINOPHILS % (MANUAL) 0 % (0-6); LYMPHOCYTES % (MANUAL) 13 % (13-45); MONOCYTES % (MANUAL) 4 % (3-13); SEGMENTED NEUTROPHILS % (MAN) 83 % (42-78); TOTAL CELLS COUNTED 100
[2020-02-06 02:12] LABS: ANISOCYTOSIS 1+; HYPOCHROMASIA SLIGHT; PLATELET CLUMPS PRESENT; PLATELET COMMENT ADEQUATE; TARGET CELLS SLIGHT
[2020-02-06 02:21] LABS: APPEARANCE,URINE SLIGHTLY-CLOUDY; BILIRUBIN,URINE NEGATIVE (NEGATIVE); COLOR,URINE YELLOW; GLUCOSE, URINE NEGATIVE (NEGATIVE); KETONES,URINE NEGATIVE (NEGATIVE); LEUKOCYTE ESTERASE,URINE NEGATIVE (NEGATIVE); NITRITE,URINE NEGATIVE (NEGATIVE); PROTEIN,URINE NEGATIVE (NEGATIVE); URINE SPECIFIC GRAVITY 1.008
--- NOTE | 2020-02-06 02:49 | RADIOLOGY REPORT (SQ) ---
CT abdomen and pelvis with contrast on 02/06/2020 at 2:15 AM CLINICAL INDICATION: Generalized abdominal pain, history of colon cancer TECHNIQUE: Multiple axial images are obtained throughout the abdomen and pelvis following the administration of IV contrast, 100 mL of Omnipaque 350contrast was administered intravenously without complication. This exam was performed according to our departmental dose-optimization program, which includes automated exposure control, adjustment of the mA and/or kV according to patient size and/or use of iterative reconstruction technique. Total DLP is 1755.72 mGy*cm. COMPARISON: 05/11/2019 FINDINGS: Abdomen: There are patchy groundglass opacities in the lower lungs that are likely infectious in nature and worrisome for viral or COVID 19 pneumonia and recommend appropriate testing. There is a stable small 1.8 cm right adrenal nodule that measures 65 Hounsfield units. This is stable dating back to an exam from 02/18/2019 and most likely represents an adenoma. There is a small nonobstructing stone in the lower pole of the left kidney. Solid abdominal organs are otherwise unremarkable. Vascular calcifications are noted. There is no abdominal adenopathy. There is no free fluid or free air within the abdomen. The abdominal portion of the GI tract is unremarkable. There is rectus diastases. Pelvis: The patient is status post sigmoid colon resection with colonic anastomosis in the pelvis. Pelvic organs appear unremarkable by CT. No free fluid is noted in the pelvis. There is no pelvic adenopathy. Pelvic portion of the GI tract including the appendix is otherwise unremarkable. Degenerative changes are noted in the spine. There is sclerosis in the right greater than the left femoral heads that may be degenerative versus possibly very early mild changes of avascular necrosis. IMPRESSION: 1. Patchy groundglass opacities in the lower lungs likely infectious in nature. Imaging features can be seen with viral or COVID 19 pneumonia, though are nonspecific and can occur with a variety of infectious and noninfectious processes. [PneInd] 2. Otherwise no acute abnormality.
[2020-02-06] MEDS ORDERED: DEXAMETHASONE SOD PHOSPHATE INJ 4 MG/1 ML VIAL IV ONE (03:31)
[2020-02-06] MEDS ORDERED: AZITHROMYCIN INJ 500 MG VIAL IV ONE (03:32)
[2020-02-06] MEDS ORDERED: IBUPROFEN 800 MG TABLET PO ONE (03:33)
[2020-02-06] MEDS ORDERED: NORMAL SALINE 1000 ML 1,000 ML IV ONE (03:50)
[2020-02-06] MEDS: ASCORBIC ACID 500 MG TABLET PO SCH (09:24)
[2020-02-06] MEDS: CHOLECALCIFEROL (D3) 1,000 UNIT (25 MCG) TABLET PO SCH (09:25)
[2020-02-06] MEDS: ZINC SULFATE 220 MG CAPSULE PO SCH (09:25)
[2020-02-06] MEDS: PANTOPRAZOLE SODIUM 40 MG TABLET.DR PO SCH (09:26)
[2020-02-06] MEDS: NORMAL SALINE 1000 ML 1,000 ML IV PRN ×2 (09:26→20:32)
[2020-02-06] MEDS: CEFTRIAXONE 1 GM/D5W RTU 1 GM/50 ML RTUPB IV SCH (09:27)
[2020-02-06] MEDS: ENOXAPARIN SODIUM INJ 40 MG/0.4 ML DISP.SYRIN SUBCUT SCH (09:28)
[2020-02-06] MEDS: ONDANSETRON HCL INJ/PF 4 MG/2 ML SDV IV PRN (16:31)
--- NOTE | 2020-02-06 21:56 | PDOC H&P ---
History of Present Illness Admission Date/PCP: 02/06/20 03:55 JUAN SALOMON MD History of Present Illness: DEANA MURRAY is a 54 year old female patient of Dr. Salomon who presented to the ED with complaint about sinus congestion, sinus pressure, fever, and minimally productive cough. Patient reported associated wheezing, headache, nausea, vomiting, abdominal pain, and diarrhea. She denied any chest pain, palpitation, or dizziness. She reported coming to the ED today due to worsening symptoms. Her initial evaluation in the ED was significant for chest CT scan that revealed bilateral groundglass opacities. Patient denied ever tested for COVID-19 or recent travel or exposure to acutely ill person. She demonstrated episodes of hypoxemia with associated tachycardia with exertion. She was advised hospitalization for further evaluation and management in view of her symptoms constellation and clinical findings. Her morbidities are as noted below. Past Medical History Cardiac Medical History: Reports: Hypertension Denies: Atrial Fibrillation, Congestive Heart Failure, Coronary Artery Disease, Myocardial Infarction, Hyperlipidema, Peripheral Vascular Disease, Heart Murmur Pulmonary Medical History: Denies: Asthma, Bronchitis, Chronic Obstructive Pulmonary Disease (COPD), Sleep Apnea Neurological Medical History: Denies: Seizures Endocrine Medical History: Denies: Diabetes Mellitus Type 1, Diabetes Mellitus Type 2, Hyperthyroidism, Hypothyroidism Malignancy Medical History: Denies: Breast Cancer, Cervical Cancer, Ovarian Cancer GI Medical History: Denies: Crohn's Disease, Gastroesophageal Reflux Disease, Hiatal Hernia Musculoskeltal Medical History: Reports: Arthritis - knees Denies: Fibromyalgia Psychiatric Medical History: Reports: Depression Denies: Bipolar Disorder, Post Traumatic Stress Disorder Hematology: Denies: Anemia, Sickle Cell Disease Past Surgical History Past Surgical History: Reports: Section - x1, Hysterectomy, Tubal Ligation Denies: Amputation, Appendectomy, Cholecystectomy, Colostomy, Coronary Artery Bypass Graft, Gastric Bypass Surgery, Herniorrhaphy, Mastectomy, Tonsillectomy Social History Smoking Status: Current Every Day Smoker Cigarettes Packs Per Day: 1 Hx Recreational Drug Use: No Drugs: None Hx Prescription Drug Abuse: No - Advance Directive Resuscitation Status: Full Code Family History Family History: Reviewed & Not Pertinent, CAD, DM, Hypertension Parental Family History Reviewed: Yes Children Family History Reviewed: Yes Sibling(s) Family History Reviewed.: Yes Medication/Allergy Home Medications: Amlodipine Besylate [Norvasc 10 mg Tablet] 10 mg PO DAILY 11/22/20 Hydrochlorothiazide 12.5 mg PO QAM 02/06/20 Nicotine [Nicoderm 21 mg/24 Hr Transderm Patch] 1 patch TD DAILY 02/06/20 Allergies/Adverse Reactions: lisinopril Allergy (Verified 05/24/19 05:54) Angioneurotic Edema Review of Systems Constitutional: PRESENT: fever(s), headache(s). ABSENT: chills Eyes: ABSENT: visual disturbances Ears: ABSENT: hearing changes Cardiovascular: PRESENT: dyspnea on exertion. ABSENT: chest pain, edema, orthropnea, palpitations Respiratory: PRESENT: cough, dyspnea. ABSENT: hemoptysis Gastrointestinal: PRESENT: abdominal pain, diarrhea, nausea, vomiting. ABSENT: constipation, hematemesis, hematochezia Genitourinary: ABSENT: dysuria, hematuria Musculoskeletal: ABSENT: joint swelling Integumentary: ABSENT: rash, wounds Neurological: ABSENT: abnormal gait, abnormal speech, confusion, dizziness, focal weakness, syncope Psychiatric: ABSENT: anxiety, depression, homidical ideation, suicidal ideation Endocrine: ABSENT: cold intolerance, heat intolerance, menstrual abnormalities, polydipsia, polyuria Hematologic/Lymphatic: ABSENT: easy bleeding, easy bruising, lymphadenopathy Physical Exam Vital Signs: Temp Pulse Resp BP Pulse Ox 98.7 F 92 19 128/88 H 91 L 02/06/20 15:26 02/06/20 15:26 02/06/20 15:26 02/06/20 15:26 02/06/20 15:26 Intake & Output 02/05/20 02/06/20 02/07/20 06:59 06:59 06:59 Intake Total 1999 512 Balance 2000 512 Weight 96.2 kg 99 kg General appearance: PRESENT: mild distress - on supplemental oxygen via nasal cannula, obese Head exam: PRESENT: atraumatic, normocephalic Eye exam: PRESENT: conjunctiva pink, EOMI, PERRLA. ABSENT: scleral icterus Ear exam: PRESENT: normal external ear exam Mouth exam: PRESENT: moist, tongue midline Neck exam: PRESENT: full ROM. ABSENT: carotid bruit, JVD, lymphadenopathy, th yromegaly Respiratory exam: PRESENT: clear to auscultation teresa, decreased breath sounds - at lung bases Cardiovascular exam: PRESENT: RRR. ABSENT: diastolic murmur, rubs, systolic murmur Pulses: PRESENT: normal dorsalis pedis pul, +2 pedal pulses bilateral Vascular exam: PRESENT: normal capillary refill. ABSENT: pallor GI/Abdominal exam: PRESENT: normal bowel sounds, soft. ABSENT: distended, guarding, mass, organolmegaly, rebound, tenderness Rectal exam: PRESENT: deferred Extremities exam: ABSENT: pedal edema Neurological exam: PRESENT: alert, awake, oriented to person, oriented to place, oriented to time, oriented to situation, CN II-XII grossly intact. ABSENT: motor sensory deficit Psychiatric exam: PRESENT: appropriate affect, normal mood. ABSENT: homicidal ideation, suicidal ideation Skin exam: PRESENT: dry, intact, warm. ABSENT: cyanosis, rash Results Laboratory Results: 02/06/20 01:00 02/06/20 01:00 02/06/20 02/06/20 02/06/20 01:00 01:00 02:00 WBC 21.0 H RBC 6.30 H Hgb 16.5 H Hct 46.9 MCV 75 L MCH 26.3 L MCHC 35.3 RDW 16.5 H Plt Count 220 Seg Neutrophils % Not Reportable Sodium 137.3 Potassium 3.6 Chloride 98 Carbon Dioxide 26 Anion Gap 13 BUN 6 L Creatinine 0.68 Est GFR ( Amer) > 60 Glucose 121 H Calcium 9.4 Total Bilirubin 1.2 AST 32 Alkaline Phosphatase 101 Total Protein 7.7 Albumin 4.1 Urine Color YELLOW Urine Appearance SLIGHTLY-CLOUDY Urine pH 6.0 Ur Specific [place] 1.008 Urine Protein NEGATIVE Urine Glucose (UA) NEGATIVE Urine Ketones NEGATIVE Urine Blood NEGATIVE Urine Nitrite NEGATIVE Ur Leukocyte Esterase NEGATIVE Urine WBC (Auto) 5 Urine RBC (Auto) 1 Impressions: Abdomen/Pelvis CT 02/05/20 23:25 IMPRESSION: 1. Patchy groundglass opacities in the lower lungs likely infectious in nature. Imaging features can be seen with viral or COVID 19 pneumonia, though are nonspecific and can occur with a variety of infectious and noninfectious processes. [PneInd] 2. Otherwise no acute abnormality. Chest X-Ray 02/05/20 23:26 IMPRESSION: 1. No acute pulmonary findings. Assessment & Plan - Diagnosis (1) Pneumonia Qualifiers: Pneumonia type: due to unspecified organism Laterality: bilateral Lung location: lower lobe of lung Qualified Code(s): J18.9 - Pneumonia, unspecified organism Is this a current diagnosis for this admission?: Yes Plan: See covering admitting attending physician orders for details about care plan. (2) Person under investigation for COVID-19 Is this a current diagnosis for this admission?: Yes Plan: See covering admitting attending physician orders for details about care plan. (3) Hypertension Qualifiers: Hypertension type: essential hypertension Qualified Code(s): I10 - Essential (primary) hypertension Is this a current diagnosis for this admission?: Yes Plan: See covering admitting attending physician orders for details about care plan. - Time Time Spent: 50 to 70 Minutes Medications reviewed and adjusted accordingly: Yes Anticipated Discharge Disposition: Home, Self Care Anticipated Discharge Timeframe: within 72 hours - Inpatient Certification Based on my medical assessment, after consideration of the patient's comorbidities, presenting symptoms, or acuity I expect that the services needed warrant INPATIENT care.: Yes I certify that my determination is in accordance with my understanding of Medicare's requirements for reasonable and necessary INPATIENT services [42 CFR 412.3e].: Yes Medical Necessity: Significant Comorbidiites Make Outpatient Treatment Too Risky, Need Close Monitoring Due to Risk of Patient Decompensation, Need For IV Fluids, Need For Continuous Telemetry Monitoring, Need for IV Antibiotics, Risk of Complication if Not Cared For in Hospital, Risk of Diagnosis Which Will Require 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
[2020-02-06] MEDS: MELATONIN 5 MG TABLET PO PRN (22:42)
[2020-02-07] MEDS: PANTOPRAZOLE SODIUM 40 MG TABLET.DR PO SCH (05:25)
[2020-02-07] MEDS: ACETAMINOPHEN 325 MG TABLET PO PRN ×3 (05:25→23:53)
[2020-02-07 06:45] LABS: HEMATOCRIT 41.1 % (36.0-47.0); HEMOGLOBIN 14.5 g/dL (12.0-15.5); MEAN CORPUSCULAR HEMOGLOBIN 26.4 pg (27.0-33.4); MEAN CORPUSCULAR HGB CONC 35.2 g/dL (32.0-36.0); MEAN CORPUSCULAR VOLUME 75 fl (80-97); PLATELET COUNT 192 10^3/uL (150-450); RED BLOOD COUNT 5.48 10^6/uL (3.72-5.28); RED CELL DISTRIBUTION WIDTH 16.6 % (11.5-14.0)
[2020-02-07 07:21] LABS: ABSOLUTE LYMPHOCYTES# (MANUAL) 2.4 10^3/uL (0.5-4.7); ABSOLUTE MONOCYTES # (MANUAL) 0.3 10^3/uL (0.1-1.4); BASOPHILS % (MANUAL) 0 % (0-2); EOSINOPHILS % (MANUAL) 0 % (0-6); LYMPHOCYTES % (MANUAL) 9 % (13-45); MONOCYTES % (MANUAL) 1 % (3-13); PLATELET COMMENT ADEQUATE; SEGMENTED NEUTROPHILS % (MAN) 90 % (42-78); TOTAL CELLS COUNTED 100
[2020-02-07 07:22] LABS: ANISOCYTOSIS 1+
[2020-02-07 07:23] LABS: POLYCHROMASIA SLIGHT; TARGET CELLS 1+
[2020-02-07 07:26] LABS: HYPOCHROMASIA SLIGHT
[2020-02-07 07:35] LABS: ALBUMIN 3.5 g/dL (3.5-5.0); ALKALINE PHOSPHATASE 86 U/L (38-126); ANION GAP 12 (5-19); ASPARTATE AMINO TRANSFERASE 34 U/L (14-36); BILIRUBIN,DIRECT 0.3 mg/dL (0.0-0.4); BILIRUBIN,TOTAL 0.6 mg/dL (0.2-1.3); BLOOD UREA NITROGEN 9 mg/dL (7-20); CALCIUM 9.2 mg/dL (8.4-10.2); CARBON DIOXIDE 24 mmol/L (22-30); CHLORIDE 105 mmol/L (98-107); GLUCOSE 146 mg/dL (75-110); POTASSIUM 3.5 mmol/L (3.6-5.0); TOTAL PROTEIN 6.8 g/dL (6.3-8.2)
[2020-02-07] MEDS: ASCORBIC ACID 500 MG TABLET PO SCH (09:31)
[2020-02-07] MEDS: CHOLECALCIFEROL (D3) 1,000 UNIT (25 MCG) TABLET PO SCH (09:31)
[2020-02-07] MEDS: ZINC SULFATE 220 MG CAPSULE PO SCH (09:31)
[2020-02-07] MEDS: AZITHROMYCIN 500 MG in DEXTROSE 5%-WATER 250 ML IV SCH (09:31)
[2020-02-07] MEDS: ENOXAPARIN SODIUM INJ 40 MG/0.4 ML DISP.SYRIN SUBCUT SCH (09:32)
[2020-02-07] MEDS: CEFTRIAXONE 1 GM/D5W RTU 1 GM/50 ML RTUPB IV SCH (09:32)
[2020-02-07] MEDS: NORMAL SALINE 1000 ML 1,000 ML IV PRN ×2 (09:35→23:32)
[2020-02-07] MEDS: ONDANSETRON HCL INJ/PF 4 MG/2 ML SDV IV PRN (12:11)
[2020-02-07] MEDS ORDERED: IPRATROPIUM/ALBUTEROL 0.5-2.5 MG/3 ML AMPUL NEB PRN (19:38)
--- NOTE | 2020-02-07 19:38 | PDOC PROGRESS REPORT ---
Subjective Date:: 02/07/20 Subjective:: Patient was admitted yesterday when she presented to the emergency room for evaluation of abdominal pain, a CAT scan of the abdomen pelvis was done, there was no acute pathology but the lower chest demonstrated groundglass opacity consistent with pneumonia. The SARS-CoV-2 test was negative, I saw the patient on the floor, presently downgraded to medical floor Reason For Visit: PNEUMONIA,PUI FOR COVID 19 Physical Exam Vital Signs: Temp Pulse Resp BP Pulse Ox 98.4 F 82 19 148/88 H 96 02/07/20 12:55 02/07/20 14:00 02/07/20 12:55 02/07/20 12:55 02/07/20 12:55 Intake & Output 02/06/20 02/07/20 02/08/20 06:59 06:59 06:59 Intake Total 1999 2512 540 Balance 19992 540 Weight 96.2 kg 97.4 kg General appearance: PRESENT: mild distress Eye exam: PRESENT: PERRLA Respiratory exam: PRESENT: rhonchi, wheezes Cardiovascular exam: PRESENT: +S1, +S2 GI/Abdominal exam: PRESENT: soft Neurological exam: PRESENT: alert, CN II-XII grossly intact Results Laboratory Results: 02/07/20 06:16 02/07/20 06:16 02/07/20 02/07/20 06:16 06:16 WBC 27.0 H RBC 5.48 H Hgb 14.5 Hct 41.1 MCV 75 L MCH 26.4 L MCHC 35.2 RDW 16.6 H Plt Count 192 Seg Neutrophils % Not Reportable Sodium 141.0 Potassium 3.5 L Chloride 105 Carbon Dioxide 24 Anion Gap 12 BUN 9 Creatinine 0.57 Est GFR ( Amer) > 60 Glucose 146 H Calcium 9.2 Total Bilirubin 0.6 AST 34 Alkaline Phosphatase 86 Total Protein 6.8 Albumin 3.5 Impressions: Abdomen/Pelvis CT 02/05/20 23:25 IMPRESSION: 1. Patchy groundglass opacities in the lower lungs likely infectious in nature. Imaging features can be seen with viral or COVID 19 pneumonia, though are nonspecific and can occur with a variety of infectious and noninfectious processes. [PneInd] 2. Otherwise no acute abnormality. Chest X-Ray 02/05/20 23:26 IMPRESSION: 1. No acute pulmonary findings. Assessment & Plan - Diagnosis (1) Bilateral pneumonia Qualifiers: Pneumonia type: due to unspecified organism Lung location: unspecified part of lung Qualified Code(s): J18.9 - Pneumonia, unspecified organism Is this a current diagnosis for this admission?: Yes Plan: She has bilateral pneumonia, present on antibiotic, duo antibiotic, continue the same antibiotic, obtain CT chest without contrast - Time Time Spent with patient: 35 or more minutes Level of Care: MEDICAL Medications reviewed and adjusted accordingly: Yes Anticipated discharge: Home - Inpatient Certification Based on my medical assessment, after consideration of the patient's comorbidities, presenting symptoms, or acuity I expect that the services needed warrant INPATIENT care.: Yes I certify that my determination is in accordance with my understanding of Medicare's requirements for reasonable and necessary INPATIENT services [42 CFR 412.3e].: Yes
--- NOTE | 2020-02-07 21:00 | RADIOLOGY REPORT (SQ) ---
EXAM DESCRIPTION: CT CHEST WITHOUT CLINICAL HISTORY: 54 years Female; pneumonia TECHNIQUE: CT of the chest without intravenous contrast. All CT scans at this facility use dose modulation, iterative reconstruction, and/or weight based dosing when appropriate to reduce radiation dose to as low as reasonably achievable. COMPARISON: CT scan of the chest with contrast May 11, 2019 FINDINGS: Chest: Lungs: Lung volumes are preserved. There is been development of extensive patchy groundglass infiltrate which is characterized by a nodular and peripheral distribution. This is most pronounced in the perihilar and upper lobes. No air bronchograms. Pleura: No effusions or pneumothorax Mediastinum: Heart size is within normal limits. No pericardial abnormality. No significant mediastinal lymphadenopathy. Bones: Mild endplate spondylosis in the thoracic spine. No acute, destructive bone lesions. Soft tissues of the chest wall are unremarkable Upper Abdomen: Vascular calcifications are seen in the abdominal aorta. No acute process. IMPRESSION: Multifocal, peripheral, nodular groundglass infiltrate and consolidation bilaterally consistent with pneumonia. Commonly reported imaging features of COVID pneumonia are present. Other processes such as influenza pneumonia and organizing pneumonia, as can be seen with drug toxicity and connective tissue disease, can cause similar imaging pattern. [PneTyp]
--- NOTE | 2020-02-07 23:50 | CDI QUERY ---
CDI Query CDI Review: We are seeking further clarification of documentation to reflect the severity of illness of your patient. Per H&P: Abdomen/Pelvis CT 02/05/20 23:25 IMPRESSION: 1. Patchy groundglass opacities in the lower lungs likely infectious in nature. Imaging features can be seen with viral or COVID 19 pneumonia, though are nonspecific and can occur with a variety of infectious and noninfectious processes. [PneInd] 2. Otherwise no acute abnormality. Labs: WBC 21.0 Covid-19: Not detected Per Progress Notes: Bilateral pneumonia Qualifiers: Pneumonia type: due to unspecified organism Lung location: unspecified part of lung Qualified Code(s): J18.9 - Pneumonia, unspecified organism Is this a current diagnosis for this admission?: Yes Plan: She has bilateral pneumonia, present on antibiotic, duo antibiotic, continue the same antibiotic, obtain CT chest without contrast Based on your medical judgment, can you further clarify in the Progress Notes and carry through to the Discharge Summary the most likely or suspected underlying cause of the pneumonia: > Aspiration > Viral > Gram negative > Staph > Pseudomonas > Pneumococcus >Other cause (please specify) > None of the above / Not applicable Thank you for your consideration. SABRINA Devlin RN Clinical Director Surface Transportation Physician Advisor [email or web address]
[2020-02-08] MEDS: PANTOPRAZOLE SODIUM 40 MG TABLET.DR PO SCH (05:33)
[2020-02-08] MEDS: AZITHROMYCIN 500 MG in DEXTROSE 5%-WATER 250 ML IV SCH (08:45)
[2020-02-08] MEDS: ENOXAPARIN SODIUM INJ 40 MG/0.4 ML DISP.SYRIN SUBCUT SCH (09:34)
[2020-02-08] MEDS: CEFTRIAXONE 1 GM/D5W RTU 1 GM/50 ML RTUPB IV SCH (09:35)
[2020-02-08] MEDS: ONDANSETRON HCL INJ/PF 4 MG/2 ML SDV IV PRN (09:35)
[2020-02-08] MEDS: ASCORBIC ACID 500 MG TABLET PO SCH (09:35)
[2020-02-08] MEDS: CHOLECALCIFEROL (D3) 1,000 UNIT (25 MCG) TABLET PO SCH (09:35)
[2020-02-08] MEDS: ZINC SULFATE 220 MG CAPSULE PO SCH (11:23)
[2020-02-08] MEDS: NORMAL SALINE 1000 ML 1,000 ML IV PRN (13:37)
[2020-02-08] MEDS: ACETAMINOPHEN 325 MG TABLET PO PRN (15:30)
--- NOTE | 2020-02-08 22:12 | PDOC PROGRESS REPORT ---
Subjective Date:: 02/08/20 Subjective:: Patient was admitted yesterday when she presented to the emergency room for evaluation of abdominal pain, a CAT scan of the abdomen pelvis was done, there was no acute pathology but the lower chest demonstrated groundglass opacity consistent with pneumonia. The SARS-CoV-2 test was negative, I saw the patient on the floor, presently downgraded to medical floor 02/08/2020 CT chest that was done demonstrated extensive patchy groundglass infiltrate catarase by nodular and peripheral distribution this is most pronounced in the perihilar and upper lobes no air bronchograms consistent with pneumonia bilaterally, She has extensive pneumonia, DC steroid, add vancomycin, Reason For Visit: COVID-19, PNEUMONIA Physical Exam Vital Signs: Temp Pulse Resp BP Pulse Ox 99.0 F 85 18 135/98 H 92 02/08/20 20:20 02/08/20 20:07 02/08/20 20:07 02/08/20 20:07 02/08/20 20:07 Intake & Output 02/07/20 02/08/20 02/09/20 06:59 06:59 06:59 Intake Total 2512 2200 2540 Balance 2512 2200 2540 Weight 97.4 kg 97.4 kg General appearance: PRESENT: no acute distress Eye exam: PRESENT: PERRLA Respiratory exam: PRESENT: rhonchi, wheezes Cardiovascular exam: PRESENT: +S1, +S2 GI/Abdominal exam: PRESENT: soft Neurological exam: PRESENT: alert Results Laboratory Results: 02/07/20 06:16 02/07/20 06:16 Impressions: Abdomen/Pelvis CT 02/05/20 23:25 IMPRESSION: 1. Patchy groundglass opacities in the lower lungs likely infectious in nature. Imaging features can be seen with viral or COVID 19 pneumonia, though are nonspecific and can occur with a variety of infectious and noninfectious processes. [PneInd] 2. Otherwise no acute abnormality. Chest X-Ray 02/05/20 23:26 IMPRESSION: 1. No acute pulmonary findings. Chest CT 02/07/20 00:00 IMPRESSION: Multifocal, peripheral, nodular groundglass infiltrate and consolidation bilaterally consistent with pneumonia. Commonly reported imaging features of COVID pneumonia are present. Other processes such as influenza pneumonia and organizing pneumonia, as can be seen with drug toxicity and connective tissue disease, can cause similar imaging pattern. [PneTyp] Assessment & Plan - Diagnosis (1) Bilateral pneumonia Qualifiers: Pneumonia type: due to unspecified organism Lung location: unspecified part of lung Qualified Code(s): J18.9 - Pneumonia, unspecified organism Is this a current diagnosis for this admission?: Yes Plan: She has bilateral pneumonia, present on antibiotic, duo antibiotic, continue the same antibiotic, obtain CT chest without contrast 02/08/2020 She has extensive pneumonia start Zosyn and vancomycin this will cover potential pathogens including anaerobes, gram-positive gram-negative MRSA - Time Time Spent with patient: 35 or more minutes Level of Care: MEDICAL Medications reviewed and adjusted accordingly: Yes Anticipated discharge: Home Anticipated DC Timeframe: within 72 hours
[2020-02-08] MEDS ORDERED: VANCOMYCIN HCL 0 MG in DEXTROSE 5%-WATER 250 ML IV NR (22:15)
[2020-02-08] MEDS ORDERED: VANCOMYCIN HCL 2,000 MG in DEXTROSE 5%-WATER 500 ML IV ONE (23:00)
[2020-02-08] MEDS ORDERED: VANCOMYCIN HCL INJ 1000 MG VIAL IV PRN (23:01)
[2020-02-09] MEDS ORDERED: VANCOMYCIN HCL INJ 1000 MG VIAL ONE (01:10)
[2020-02-09] MEDS ORDERED: PIPERACILLIN/TAZOBACTAM 4.5 GM VIAL IV ONE (01:11)
[2020-02-09] MEDS: PIPERACILLIN SODIUM/TAZOBACTAM 4.5 GM in NORMAL SALINE 100 ML IV SCH ×4 (01:22→18:51)
[2020-02-09] MEDS: PANTOPRAZOLE SODIUM 40 MG TABLET.DR PO SCH (05:57)
[2020-02-09] MEDS: VANCOMYCIN HCL 1,000 MG in DEXTROSE 5%-WATER 250 ML IV SCH ×2 (10:15→18:50)
[2020-02-09] MEDS: ZINC SULFATE 220 MG CAPSULE PO SCH (10:16)
[2020-02-09] MEDS: ASCORBIC ACID 500 MG TABLET PO SCH (10:16)
[2020-02-09] MEDS: CHOLECALCIFEROL (D3) 1,000 UNIT (25 MCG) TABLET PO SCH (10:16)
[2020-02-09] MEDS: ENOXAPARIN SODIUM INJ 40 MG/0.4 ML DISP.SYRIN SUBCUT SCH (10:16)
[2020-02-09] MEDS ORDERED: INFLUENZA QUAD (6MOS+) 2020-21 VAC 0.5 ML SYR IM ONE (11:45)
[2020-02-09] MEDS: NORMAL SALINE 1000 ML 1,000 ML IV PRN (13:15)
[2020-02-09] MEDS: ACETAMINOPHEN 325 MG TABLET PO PRN (18:53)
--- NOTE | 2020-02-09 20:13 | PDOC PROGRESS REPORT ---
Subjective Date:: 02/09/20 Subjective:: Patient was admitted yesterday when she presented to the emergency room for evaluation of abdominal pain, a CAT scan of the abdomen pelvis was done, there was no acute pathology but the lower chest demonstrated groundglass opacity consistent with pneumonia. The SARS-CoV-2 test was negative, I saw the patient on the floor, presently downgraded to medical floor 02/08/2020 CT chest that was done demonstrated extensive patchy groundglass infiltrate catarase by nodular and peripheral distribution this is most pronounced in the perihilar and upper lobes no air bronchograms consistent with pneumonia bilaterally, She has extensive pneumonia, DC steroid, add vancomycin, 02/09/2020 She feels somewhat better today, the antibiotic was changed yesterday Reason For Visit: COVID-19, PNEUMONIA Physical Exam Vital Signs: Temp Pulse Resp BP Pulse Ox 98.2 F 104 H 14 134/78 H 94 02/09/20 11:13 02/09/20 14:00 02/09/20 13:26 02/09/20 11:13 02/09/20 13:26 Intake & Output 02/08/20 02/09/20 02/10/20 06:59 06:59 06:59 Intake Total 2200 4590 1730 Balance 2200 4590 1730 Weight 97.4 kg 97.4 kg General appearance: PRESENT: no acute distress, well-developed, well-nourished Head exam: PRESENT: atraumatic, normocephalic Eye exam: PRESENT: conjunctiva pink, EOMI, PERRLA. ABSENT: scleral icterus Ear exam: PRESENT: normal external ear exam Mouth exam: PRESENT: moist, tongue midline Neck exam: PRESENT: full ROM. ABSENT: carotid bruit, JVD, lymphadenopathy, thyromegaly Respiratory exam: PRESENT: rhonchi Cardiovascular exam: PRESENT: RRR, +S1, +S2 Pulses: PRESENT: normal dorsalis pedis pul, +2 pedal pulses bilateral Vascular exam: PRESENT: normal capillary refill GI/Abdominal exam: PRESENT: normal bowel sounds, soft Rectal exam: PRESENT: deferred Neurological exam: PRESENT: alert, awake, oriented to person, oriented to place, oriented to time, oriented to situation, CN II-XII grossly intact. ABSENT: motor sensory deficit Psychiatric exam: PRESENT: appropriate affect, normal mood. ABSENT: homicidal ideation, suicidal ideation Skin exam: PRESENT: dry, intact, warm. ABSENT: cyanosis, rash Results Laboratory Results: 02/07/20 06:16 02/07/20 06:16 Impressions: Abdomen/Pelvis CT 02/05/20 23:25 IMPRESSION: 1. Patchy groundglass opacities in the lower lungs likely infectious in nature. Imaging features can be seen with viral or COVID 19 pneumonia, though are nonspecific and can occur with a variety of infectious and noninfectious processes. [PneInd] 2. Otherwise no acute abnormality. Chest X-Ray 02/05/20 23:26 IMPRESSION: 1. No acute pulmonary findings. Chest CT 02/07/20 00:00 IMPRESSION: Multifocal, peripheral, nodular groundglass infiltrate and consolidation bilaterally consistent with pneumonia. Commonly reported imaging features of COVID pneumonia are present. Other processes such as influenza pneumonia and organizing pneumonia, as can be seen with drug toxicity and connective tissue disease, can cause similar imaging pattern. [PneTyp] Assessment & Plan - Diagnosis (1) Bilateral pneumonia Qualifiers: Pneumonia type: due to unspecified organism Lung location: unspecified part of lung Qualified Code(s): J18.9 - Pneumonia, unspecified organism Is this a current diagnosis for this admission?: Yes Plan: She has bilateral pneumonia, present on antibiotic, duo antibiotic, continue the same antibiotic, obtain CT chest without contrast 02/08/2020 She has extensive pneumonia start Zosyn and vancomycin this will cover potential pathogens including anaerobes, gram-positive gram-negative MRSA - Time Time Spent with patient: 35 or more minutes Level of Care: IMCU Medications reviewed and adjusted accordingly: Yes Anticipated DC Timeframe: within 72 hours
[2020-02-09 20:41] LABS: ABSOLUTE BASOPHILS # (AUTO) 0.1 10^3/uL (0.0-0.2); ABSOLUTE EOSINOPHILS # (AUTO) 0.1 10^3/uL (0.0-0.6); ABSOLUTE MONOCYTES (AUTO) 1.2 10^3/uL (0.1-1.4); ABSOLUTE NEUT (AUTO) 12.8 10^3/uL (1.7-8.2); BASOPHILS % (AUTO) 0.5 % (0-2); EOSINOPHILS % (AUTO) 0.6 % (0-6); HEMATOCRIT 40.5 % (36.0-47.0); HEMOGLOBIN 14.2 g/dL (12.0-15.5); LYMPHOCYTES % (AUTO) 12.6 % (13-45); MEAN CORPUSCULAR HEMOGLOBIN 26.3 pg (27.0-33.4); MEAN CORPUSCULAR HGB CONC 35.1 g/dL (32.0-36.0); MEAN CORPUSCULAR VOLUME 75 fl (80-97); MONOCYTES % (AUTO) 7.4 % (3-13); PLATELET COUNT 249 10^3/uL (150-450); RED CELL DISTRIBUTION WIDTH 15.5 % (11.5-14.0); SEGMENTED NEUTROPHILS % (AUTO) 78.9 % (42-78); TOTAL CELLS COUNTED % (AUTO) 100 %; WHITE BLOOD COUNT 16.2 10^3/uL (4.0-10.5)
[2020-02-09 20:59] LABS: ANISOCYTOSIS SLIGHT; HYPOCHROMASIA SLIGHT; TARGET CELLS SLIGHT
[2020-02-09 21:00] LABS: PLATELET CLUMPS PRESENT; PLATELET COMMENT ADEQUATE
[2020-02-09] MEDS: ONDANSETRON HCL INJ/PF 4 MG/2 ML SDV IV PRN (21:48)
[2020-02-10] MEDS: PIPERACILLIN SODIUM/TAZOBACTAM 4.5 GM in NORMAL SALINE 100 ML IV SCH ×5 (00:26→23:33)
[2020-02-10] MEDS: VANCOMYCIN HCL 1,000 MG in DEXTROSE 5%-WATER 250 ML IV SCH ×3 (01:59→18:09)
[2020-02-10] MEDS: ONDANSETRON HCL INJ/PF 4 MG/2 ML SDV IV PRN ×3 (05:42→23:35)
[2020-02-10] MEDS: PANTOPRAZOLE SODIUM 40 MG TABLET.DR PO SCH (05:42)
[2020-02-10 07:06] LABS: ABSOLUTE BASOPHILS # (AUTO) 0.1 10^3/uL (0.0-0.2); ABSOLUTE EOSINOPHILS # (AUTO) 0.2 10^3/uL (0.0-0.6); ABSOLUTE LYMPHOCYTES (AUTO) 1.6 10^3/uL (0.5-4.7); ABSOLUTE NEUT (AUTO) 10.5 10^3/uL (1.7-8.2); BASOPHILS % (AUTO) 0.4 % (0-2); EOSINOPHILS % (AUTO) 1.5 % (0-6); HEMATOCRIT 39.7 % (36.0-47.0); HEMOGLOBIN 13.8 g/dL (12.0-15.5); LYMPHOCYTES % (AUTO) 12.1 % (13-45); MEAN CORPUSCULAR HEMOGLOBIN 26.3 pg (27.0-33.4); MEAN CORPUSCULAR HGB CONC 34.8 g/dL (32.0-36.0); MEAN CORPUSCULAR VOLUME 76 fl (80-97); MONOCYTES % (AUTO) 7.4 % (3-13); PLATELET COUNT 238 10^3/uL (150-450); RED BLOOD COUNT 5.25 10^6/uL (3.72-5.28); RED CELL DISTRIBUTION WIDTH 15.2 % (11.5-14.0); SEGMENTED NEUTROPHILS % (AUTO) 78.6 % (42-78); TOTAL CELLS COUNTED % (AUTO) 100 %; WHITE BLOOD COUNT 13.4 10^3/uL (4.0-10.5)
[2020-02-10 07:46] LABS: ANISOCYTOSIS SLIGHT; HYPOCHROMASIA SLIGHT
[2020-02-10 07:47] LABS: PLATELET COMMENT ADEQUATE; TARGET CELLS 1+
[2020-02-10 10:35] LABS: VANCOMYCIN,TROUGH 14.7 ug/mL (5.0-20.0)
[2020-02-10] MEDS: ZINC SULFATE 220 MG CAPSULE PO SCH (10:39)
[2020-02-10] MEDS: CHOLECALCIFEROL (D3) 1,000 UNIT (25 MCG) TABLET PO SCH (10:39)
[2020-02-10] MEDS: ASCORBIC ACID 500 MG TABLET PO SCH (10:39)
[2020-02-10] MEDS: ENOXAPARIN SODIUM INJ 40 MG/0.4 ML DISP.SYRIN SUBCUT SCH (10:40)
--- NOTE | 2020-02-10 18:26 | PDOC PROGRESS REPORT ---
Subjective Date:: 02/10/20 Subjective:: Patient was admitted yesterday when she presented to the emergency room for evaluation of abdominal pain, a CAT scan of the abdomen pelvis was done, there was no acute pathology but the lower chest demonstrated groundglass opacity consistent with pneumonia. The SARS-CoV-2 test was negative, I saw the patient on the floor, presently downgraded to medical floor 02/08/2020 CT chest that was done demonstrated extensive patchy groundglass infiltrate catarase by nodular and peripheral distribution this is most pronounced in the perihilar and upper lobes no air bronchograms consistent with pneumonia bilaterally, She has extensive pneumonia, DC steroid, add vancomycin, 02/09/2020 She feels somewhat better today, the antibiotic was changed yesterday 02/10/2020 She continues to show improvement since antibiotic was changed, white blood cells on the decline, a repeat chest x-ray to be obtained today Reason For Visit: COVID-19, PNEUMONIA Physical Exam Vital Signs: Temp Pulse Resp BP Pulse Ox 98.3 F 66 18 135/78 H 98 02/10/20 15:57 02/10/20 15:57 02/10/20 15:57 02/10/20 15:57 02/10/20 15:57 Intake & Output 02/09/20 02/10/20 02/11/20 06:59 06:59 06:59 Intake Total 4590 3010 711 Balance 4590 3010 711 Weight 97.4 kg 84.8 kg General appearance: PRESENT: no acute distress Eye exam: PRESENT: PERRLA Respiratory exam: PRESENT: rhonchi Cardiovascular exam: PRESENT: +S1, +S2 Neurological exam: PRESENT: alert, CN II-XII grossly intact Results Laboratory Results: 02/10/20 06:04 02/10/20 09:50 02/09/20 02/10/20 02/10/20 20:24 06:04 09:50 WBC 16.2 H 13.4 H RBC 5.40 H 5.25 Hgb 14.2 13.8 Hct 40.5 39.7 MCV 75 L 76 L MCH 26.3 L 26.3 L MCHC 35.1 34.8 RDW 15.5 H 15.2 H Plt Count 249 238 Seg Neutrophils % 78.9 H 78.6 H Creatinine 0.81 Est GFR ( Amer) > 60 Impressions: Abdomen/Pelvis CT 02/05/20 23:25 IMPRESSION: 1. Patchy groundglass opacities in the lower lungs likely infectious in nature. Imaging features can be seen with viral or COVID 19 pneumonia, though are nonspecific and can occur with a variety of infectious and noninfectious processes. [PneInd] 2. Otherwise no acute abnormality. Chest X-Ray 02/05/20 23:26 IMPRESSION: 1. No acute pulmonary findings. Chest CT 02/07/20 00:00 IMPRESSION: Multifocal, peripheral, nodular groundglass infiltrate and consolidation bilaterally consistent with pneumonia. Commonly reported imaging features of COVID pneumonia are present. Other processes such as influenza pneumonia and organizing pneumonia, as can be seen with drug toxicity and connective tissue disease, can cause similar imaging pattern. [PneTyp] Assessment & Plan - Diagnosis (1) Bilateral pneumonia Qualifiers: Pneumonia type: due to unspecified organism Lung location: unspecified part of lung Qualified Code(s): J18.9 - Pneumonia, unspecified organism Is this a current diagnosis for this admission?: Yes Plan: She has bilateral pneumonia, present on antibiotic, duo antibiotic, continue the same antibiotic, obtain CT chest without contrast 02/08/2020 She has extensive pneumonia start Zosyn and vancomycin this will cover potential pathogens including anaerobes, gram-positive gram-negative MRSA 02/10/2020 Continue antibiotic - Time Time Spent with patient: 25-34 minutes Level of Care: MEDICAL Medications reviewed and adjusted accordingly: Yes Anticipated discharge: Home Anticipated DC Timeframe: within 72 hours
--- NOTE | 2020-02-10 19:29 | RADIOLOGY REPORT (SQ) ---
EXAM DESCRIPTION: CHEST SINGLE VIEW IMAGES COMPLETED DATE/TIME: 02/10/2020 6:11 pm REASON FOR STUDY: pneumonia COMPARISON: Chest radiograph 02/06/2020. CT chest 02/07/2020. EXAM PARAMETERS: NUMBER OF VIEWS: One view. TECHNIQUE: Single frontal radiographic view of the chest acquired. RADIATION DOSE: NA LIMITATIONS: None. FINDINGS: LUNGS AND PLEURA: Ill-defined opacity in the right mid to lower lung improved since previo us. MEDIASTINUM AND HILAR STRUCTURES: No masses. Contour normal. HEART AND VASCULAR STRUCTURES: Heart normal in size. Normal vasculature. BONES: No acute findings. HARDWARE: None in the chest. OTHER: No other significant finding. IMPRESSION: Improving patchy opacities. TECHNICAL DOCUMENTATION: JOB ID: [id number] 2010 [facility]- All Rights Reserved Reading location - IP/workstation name: [email or web address]
[2020-02-11] MEDS: ACETAMINOPHEN 325 MG TABLET PO PRN (01:53)
[2020-02-11] MEDS: VANCOMYCIN HCL 1,000 MG in DEXTROSE 5%-WATER 250 ML IV SCH ×3 (01:54→18:59)
[2020-02-11] MEDS: PIPERACILLIN SODIUM/TAZOBACTAM 4.5 GM in NORMAL SALINE 100 ML IV SCH ×3 (05:42→17:27)
[2020-02-11] MEDS: ONDANSETRON HCL INJ/PF 4 MG/2 ML SDV IV PRN ×3 (05:42→19:04)
[2020-02-11] MEDS: PANTOPRAZOLE SODIUM 40 MG TABLET.DR PO SCH (05:42)
[2020-02-11] MEDS: CHOLECALCIFEROL (D3) 1,000 UNIT (25 MCG) TABLET PO SCH (10:50)
[2020-02-11] MEDS: ZINC SULFATE 220 MG CAPSULE PO SCH (10:50)
[2020-02-11] MEDS: ASCORBIC ACID 500 MG TABLET PO SCH (10:50)
[2020-02-11] MEDS: ENOXAPARIN SODIUM INJ 40 MG/0.4 ML DISP.SYRIN SUBCUT SCH (10:51)
[2020-02-11] MEDS ORDERED: ONDANSETRON 4 MG TAB.RAPDIS ONE (10:57)
--- NOTE | 2020-02-11 13:50 | PDOC PROGRESS REPORT ---
Subjective Date:: 02/11/20 Subjective:: Patient was admitted yesterday when she presented to the emergency room for evaluation of abdominal pain, a CAT scan of the abdomen pelvis was done, there was no acute pathology but the lower chest demonstrated groundglass opacity consistent with pneumonia. The SARS-CoV-2 test was negative, I saw the patient on the floor, presently downgraded to medical floor 02/08/2020 CT chest that was done demonstrated extensive patchy groundglass infiltrate catarase by nodular and peripheral distribution this is most pronounced in the perihilar and upper lobes no air bronchograms consistent with pneumonia bilaterally, She has extensive pneumonia, DC steroid, add vancomycin, 02/09/2020 She feels somewhat better today, the antibiotic was changed yesterday 02/10/2020 She continues to show improvement since antibiotic was changed, white blood cells on the decline, a repeat chest x-ray to be obtained today 02/11/2020 Patient seen by the bedside, clinically improving chest x-ray from yesterday demonstrated ill-defined opacity in the right mid to lower lung improved since previous x-ray, she will continue present antibiotic regimen she will stay few more days in the hospital. Reason For Visit: COVID-19, PNEUMONIA Physical Exam Vital Signs: Temp Pulse Resp BP Pulse Ox 97.9 F 76 18 147/77 H 96 02/11/20 11:18 02/11/20 11:18 02/11/20 11:18 02/11/20 11:18 02/11/20 11:18 Intake & Output 02/10/20 02/11/20 02/12/20 06:59 06:59 06:59 Intake Total 3010 1961 712 Balance 3010 1961 712 Weight 84.8 kg 97.8 kg General appearance: PRESENT: no acute distress, well-developed, well-nourished Head exam: PRESENT: atraumatic, normocephalic Eye exam: PRESENT: conjunctiva pink, EOMI, PERRLA Ear exam: PRESENT: normal external ear exam Mouth exam: PRESENT: moist, tongue midline Neck exam: PRESENT: full ROM Respiratory exam: PRESENT: clear to auscultation teresa Cardiovascular exam: PRESENT: RRR, +S1, +S2 Pulses: PRESENT: normal dorsalis pedis pul, +2 pedal pulses bilateral Vascular exam: PRESENT: normal capillary refill GI/Abdominal exam: PRESENT: normal bowel sounds, soft Rectal exam: PRESENT: deferred Neurological exam: PRESENT: alert, awake, oriented to person, oriented to place, oriented to time, oriented to situation, CN II-XII grossly intact Psychiatric exam: PRESENT: appropriate affect, normal mood Skin exam: PRESENT: dry, intact, warm Results Laboratory Results: 02/10/20 06:04 02/10/20 09:50 02/06/20 12:05 Blood Blood Culture - Final NO GROWTH IN 5 DAYS 02/06/20 04:30 Blood Blood Culture - Final NO GROWTH IN 5 DAYS Impressions: Abdomen/Pelvis CT 02/05/20 23:25 IMPRESSION: 1. Patchy groundglass opacities in the lower lungs likely infectious in nature. Imaging features can be seen with viral or COVID 19 pneumonia, though are nonspecific and can occur with a variety of infectious and noninfectious processes. [PneInd] 2. Otherwise no acute abnormality. Chest CT 02/07/20 00:00 IMPRESSION: Multifocal, peripheral, nodular groundglass infiltrate and consolidation bilaterally consistent with pneumonia. Commonly reported imaging features of COVID pneumonia are present. Other processes such as influenza pneumonia and organizing pneumonia, as can be seen with drug toxicity and connective tissue disease, can cause similar imaging pattern. [PneTyp] Chest X-Ray 02/10/20 00:00 IMPRESSION: Improving patchy opacities. Assessment & Plan - Diagnosis (1) Bilateral pneumonia Qualifiers: Pneumonia type: due to unspecified organism Lung location: unspecified part of lung Qualified Code(s): J18.9 - Pneumonia, unspecified organism Is this a current diagnosis for this admission?: Yes Plan: She has bilateral pneumonia, present on antibiotic, duo antibiotic, continue the same antibiotic, obtain CT chest without contrast 02/08/2020 She has extensive pneumonia start Zosyn and vancomycin this will cover potential pathogens including anaerobes, gram-positive gram-negative MRSA 02/10/2020 Continue antibiotic 02/11/2020 Continue treatment - Time Time Spent with patient: 35 or more minutes Level of Care: MEDICAL Medications reviewed and adjusted accordingly: Yes Anticipated discharge: Home Anticipated DC Timeframe: within 72 hours
[2020-02-11 15:05] LABS: ABSOLUTE BASOPHILS # (AUTO) 0.1 10^3/uL (0.0-0.2); ABSOLUTE EOSINOPHILS # (AUTO) 0.2 10^3/uL (0.0-0.6); ABSOLUTE LYMPHOCYTES (AUTO) 2.3 10^3/uL (0.5-4.7); ABSOLUTE MONOCYTES (AUTO) 1.1 10^3/uL (0.1-1.4); ABSOLUTE NEUT (AUTO) 9.9 10^3/uL (1.7-8.2); BASOPHILS % (AUTO) 0.5 % (0-2); EOSINOPHILS % (AUTO) 1.5 % (0-6); HEMATOCRIT 39.9 % (36.0-47.0); HEMOGLOBIN 14.1 g/dL (12.0-15.5); MEAN CORPUSCULAR HEMOGLOBIN 26.3 pg (27.0-33.4); MEAN CORPUSCULAR HGB CONC 35.3 g/dL (32.0-36.0); MEAN CORPUSCULAR VOLUME 75 fl (80-97); MONOCYTES % (AUTO) 8.1 % (3-13); PLATELET COUNT 269 10^3/uL (150-450); RED BLOOD COUNT 5.35 10^6/uL (3.72-5.28); RED CELL DISTRIBUTION WIDTH 14.8 % (11.5-14.0); SEGMENTED NEUTROPHILS % (AUTO) 72.9 % (42-78); TOTAL CELLS COUNTED % (AUTO) 100 %; WHITE BLOOD COUNT 13.6 10^3/uL (4.0-10.5)
[2020-02-11 15:15] LABS: ALBUMIN 3.4 g/dL (3.5-5.0); ALKALINE PHOSPHATASE 87 U/L (38-126); ANION GAP 8 (5-19); ASPARTATE AMINO TRANSFERASE 30 U/L (14-36); BILIRUBIN,DIRECT 0.2 mg/dL (0.0-0.4); BILIRUBIN,TOTAL 0.6 mg/dL (0.2-1.3); BLOOD UREA NITROGEN 3 mg/dL (7-20); CALCIUM 9.1 mg/dL (8.4-10.2); CARBON DIOXIDE 27 mmol/L (22-30); CHLORIDE 106 mmol/L (98-107); GLUCOSE 83 mg/dL (75-110); TOTAL PROTEIN 6.8 g/dL (6.3-8.2)
[2020-02-11 15:28] LABS: PLATELET COMMENT ADEQUATE; POIKILOCYTOSIS 1+; TARGET CELLS 1+
[2020-02-11] MEDS: ONDANSETRON 4 MG TAB.RAPDIS SL PRN (17:26)
[2020-02-11] MEDS: POTASSIUM CHLORIDE 10 MEQ TABLET.ER PO SCH (17:27)
[2020-02-12] MEDS: PIPERACILLIN SODIUM/TAZOBACTAM 4.5 GM in NORMAL SALINE 100 ML IV SCH ×4 (00:29→17:33)
[2020-02-12] MEDS: ONDANSETRON HCL INJ/PF 4 MG/2 ML SDV IV PRN ×3 (01:58→22:12)
[2020-02-12] MEDS: POTASSIUM CHLORIDE 10 MEQ TABLET.ER PO SCH ×2 (01:59→09:45)
[2020-02-12 05:20] LABS: ABSOLUTE BASOPHILS # (AUTO) 0.1 10^3/uL (0.0-0.2); ABSOLUTE EOSINOPHILS # (AUTO) 0.2 10^3/uL (0.0-0.6); ABSOLUTE NEUT (AUTO) 9.6 10^3/uL (1.7-8.2); BASOPHILS % (AUTO) 0.8 % (0-2); EOSINOPHILS % (AUTO) 1.7 % (0-6); HEMATOCRIT 37.9 % (36.0-47.0); HEMOGLOBIN 13.2 g/dL (12.0-15.5); LYMPHOCYTES % (AUTO) 15.3 % (13-45); MEAN CORPUSCULAR HEMOGLOBIN 26.3 pg (27.0-33.4); MEAN CORPUSCULAR HGB CONC 34.8 g/dL (32.0-36.0); MEAN CORPUSCULAR VOLUME 76 fl (80-97); MONOCYTES % (AUTO) 8.1 % (3-13); PLATELET COUNT 241 10^3/uL (150-450); RED CELL DISTRIBUTION WIDTH 14.6 % (11.5-14.0); SEGMENTED NEUTROPHILS % (AUTO) 74.1 % (42-78); TOTAL CELLS COUNTED % (AUTO) 100 %
[2020-02-12 05:33] LABS: ALKALINE PHOSPHATASE 65 U/L (38-126); ANION GAP 11 (5-19); ASPARTATE AMINO TRANSFERASE 27 U/L (14-36); BILIRUBIN,DIRECT 0.2 mg/dL (0.0-0.4); BILIRUBIN,TOTAL 0.4 mg/dL (0.2-1.3); BLOOD UREA NITROGEN 3 mg/dL (7-20); CALCIUM 8.7 mg/dL (8.4-10.2); CARBON DIOXIDE 22 mmol/L (22-30); CHLORIDE 108 mmol/L (98-107); GLUCOSE 134 mg/dL (75-110); POTASSIUM 3.5 mmol/L (3.6-5.0); TOTAL PROTEIN 6.1 g/dL (6.3-8.2)
[2020-02-12] MEDS: NORMAL SALINE 1000 ML 1,000 ML IV PRN (05:37)
[2020-02-12] MEDS: PANTOPRAZOLE SODIUM 40 MG TABLET.DR PO SCH (05:38)
[2020-02-12 05:54] LABS: ANISOCYTOSIS SLIGHT; POIKILOCYTOSIS SLIGHT
[2020-02-12 05:55] LABS: OVALOCYTES SLIGHT; PLATELET COMMENT ADEQUATE; SCHISTOCYTES SLIGHT
--- NOTE | 2020-02-12 08:27 | RADIOLOGY REPORT (SQ) ---
EXAM DESCRIPTION: CHEST SINGLE VIEW IMAGES COMPLETED DATE/TIME: 02/12/2020 7:42 am REASON FOR STUDY: pneumonia COMPARISON: 02/10/2020 EXAM PARAMETERS: NUMBER OF VIEWS: One view. TECHNIQUE: Single frontal radiographic view of the chest acquired. RADIATION DOSE: NA LIMITATIONS: None. FINDINGS: LUNGS AND PLEURA: Minimal residual opacity at the right base. Left lung is clear. MEDIASTINUM AND HILAR STRUCTURES: No masses. Contour normal. HEART AND VASCULAR STRUCTURES: Heart normal in size. Normal vasculature. BONES: No acute findings. HARDWARE: None in the chest. OTHER: No other significant finding. IMPRESSION: Minimal residual opacity at the right base. TECHNICAL DOCUMENTATION: JOB ID: [id number] 2010 [employer]- All Rights Reserved Reading location - IP/workstation name: [email or web address]
[2020-02-12] MEDS: VANCOMYCIN HCL 1,000 MG in DEXTROSE 5%-WATER 250 ML IV SCH ×3 (08:47→22:08)
[2020-02-12] MEDS: ASCORBIC ACID 500 MG TABLET PO SCH (09:45)
[2020-02-12] MEDS: CHOLECALCIFEROL (D3) 1,000 UNIT (25 MCG) TABLET PO SCH (09:45)
[2020-02-12] MEDS: ENOXAPARIN SODIUM INJ 40 MG/0.4 ML DISP.SYRIN SUBCUT SCH (09:46)
[2020-02-12] MEDS: ZINC SULFATE 220 MG CAPSULE PO SCH (09:46)
--- NOTE | 2020-02-12 20:21 | PDOC PROGRESS REPORT ---
Subjective Date:: 02/12/20 Subjective:: Patient was admitted yesterday when she presented to the emergency room for evaluation of abdominal pain, a CAT scan of the abdomen pelvis was done, there was no acute pathology but the lower chest demonstrated groundglass opacity consistent with pneumonia. The SARS-CoV-2 test was negative, I saw the patient on the floor, presently downgraded to medical floor 02/08/2020 CT chest that was done demonstrated extensive patchy groundglass infiltrate catarase by nodular and peripheral distribution this is most pronounced in the perihilar and upper lobes no air bronchograms consistent with pneumonia bilaterally, She has extensive pneumonia, DC steroid, add vancomycin, 02/09/2020 She feels somewhat better today, the antibiotic was changed yesterday 02/10/2020 She continues to show improvement since antibiotic was changed, white blood cells on the decline, a repeat chest x-ray to be obtained today 02/11/2020 Patient seen by the bedside, clinically improving chest x-ray from yesterday demonstrated ill-defined opacity in the right mid to lower lung improved since previous x-ray, she will continue present antibiotic regimen she will stay few more days in the hospital. 02/12/2020 Patient is improved significantly, she will be discharge home tomorrow Reason For Visit: COVID-19, PNEUMONIA Physical Exam Vital Signs: Temp Pulse Resp BP Pulse Ox 98.0 F 82 16 126/67 H 100 02/12/20 15:26 02/12/20 15:26 02/12/20 15:26 02/12/20 15:26 02/12/20 15:26 Intake & Output 02/11/20 02/12/20 02/13/20 06:59 06:59 06:59 Intake Total 1960 3868 1480 Balance 1960 3867 1480 Weight 97.8 kg 95.7 kg General appearance: PRESENT: no acute distress, well-developed, well-nourished Head exam: PRESENT: atraumatic, normocephalic Eye exam: PRESENT: conjunctiva pink, EOMI, PERRLA Ear exam: PRESENT: normal external ear exam Mouth exam: PRESENT: moist, tongue midline Neck exam: PRESENT: full ROM Respiratory exam: PRESENT: clear to auscultation teresa Cardiovascular exam: PRESENT: RRR, +S1, +S2 Pulses: PRESENT: normal dorsalis pedis pul, +2 pedal pulses bilateral Vascular exam: PRESENT: normal capillary refill GI/Abdominal exam: PRESENT: normal bowel sounds, soft Rectal exam: PRESENT: deferred Neurological exam: PRESENT: alert, awake, oriented to person, oriented to place, oriented to time, oriented to situation, CN II-XII grossly intact Psychiatric exam: PRESENT: appropriate affect, normal mood Skin exam: PRESENT: dry, intact, warm Results Laboratory Results: 02/12/20 04:19 02/12/20 04:19 02/12/20 02/12/20 04:19 04:19 WBC 13.0 H RBC 5.00 Hgb 13.2 Hct 37.9 MCV 76 L MCH 26.3 L MCHC 34.8 RDW 14.6 H Plt Count 241 Seg Neutrophils % 74.1 Sodium 141.1 Potassium 3.5 L Chloride 108 H Carbon Dioxide 22 Anion Gap 11 BUN 3 L Creatinine 0.96 Est GFR ( Amer) > 60 Glucose 134 H Calcium 8.7 Total Bilirubin 0.4 AST 27 Alkaline Phosphatase 65 Total Protein 6.1 L Albumin 3.0 L Impressions: Abdomen/Pelvis CT 02/05/20 23:25 IMPRESSION: 1. Patchy groundglass opacities in the lower lungs likely infectious in nature. Imaging features can be seen with viral or COVID 19 pneumonia, though are nonspecific and can occur with a variety of infectious and noninfectious processes. [PneInd] 2. Otherwise no acute abnormality. Chest CT 02/07/20 00:00 IMPRESSION: Multifocal, peripheral, nodular groundglass infiltrate and consolidation bilaterally consistent with pneumonia. Commonly reported imaging features of COVID pneumonia are present. Other processes such as influenza pneumonia and organizing pneumonia, as can be seen with drug toxicity and connective tissue disease, can cause similar imaging pattern. [PneTyp] Chest X-Ray 02/12/20 00:00 IMPRESSION: Minimal residual opacity at the right base. Assessment & Plan - Diagnosis (1) Bilateral pneumonia Qualifiers: Pneumonia type: due to unspecified organism Lung location: unspecified part of lung Qualified Code(s): J18.9 - Pneumonia, unspecified organism Is this a current diagnosis for this admission?: Yes Plan: She has bilateral pneumonia, present on antibiotic, duo antibiotic, continue the same antibiotic, obtain CT chest without contrast 02/08/2020 She has extensive pneumonia start Zosyn and vancomycin this will cover potential pathogens including anaerobes, gram-positive gram-negative MRSA 02/10/2020 Continue antibiotic 02/11/2020 Continue treatment 02/12/2020 Continue treatment for home tomorrow - Time Time Spent with patient: 25-34 minutes Level of Care: MEDICAL Medications reviewed and adjusted accordingly: Yes Anticipated discharge: Home Anticipated DC Timeframe: within 24 hours
--- NOTE | 2020-02-12 20:24 | PDOC DISCHARGE SUMMARY ---
Impression - Admit/DC Date/PCP Admission Date/Primary Care Provider: 02/06/20 03:55 JUAN SALOMON MD Discharge Date: 02/13/20 - Discharge Diagnosis (1) Bilateral pneumonia Is this a current diagnosis for this admission?: Yes - Additional Information Resuscitation Status: Full Code Referrals: JUAN SALOMON MD [Primary Care Provider] - Follow up as needed Home Medications: Amlodipine Besylate [Norvasc 10 mg Tablet] 10 mg PO DAILY 02/06/20 Hydrochlorothiazide 12.5 mg PO QAM 02/06/20 Nicotine [Nicoderm 21 mg/24 Hr Transderm Patch] 1 patch TD DAILY 02/06/20 History of Present Illiness History of Present Illness: DEANA MURRAY is a 54 year old female Physical Exam Vital Signs: Temp Pulse Resp BP Pulse Ox 98.6 F 73 18 122/83 95 02/12/20 20:05 02/12/20 20:05 02/12/20 20:05 02/12/20 20:05 02/12/20 20:05 Intake & Output 02/11/20 02/12/20 02/13/20 06:59 06:59 06:59 Intake Total 1960 3868 1480 Balance 19608 1480 Weight 97.8 kg 95.7 kg Results Laboratory Results: WBC 13.0 10^3/uL (4.0-10.5) H 02/12/20 04:19 RBC 5.00 10^6/uL (3.72-5.28) 02/12/20 04:19 Hgb 13.2 g/dL (12.0-15.5) 02/12/20 04:19 Hct 37.9 % (36.0-47.0) 02/12/20 04:19 MCV 76 fl (80-97) L 02/12/20 04:19 MCH 26.3 pg (27.0-33.4) L 02/12/20 04:19 MCHC 34.8 g/dL (32.0-36.0) 02/12/20 04:19 RDW 14.6 % (11.5-14.0) H 02/12/20 04:19 Plt Count 241 10^3/uL (150-450) 02/12/20 04:19 Lymph % (Auto) 15.3 % (13-45) 02/12/20 04:19 [place] % (Auto) 8.1 % (3-13) 02/12/20 04:19 Eos % (Auto) 1.7 % (0-6) 02/12/20 04:19 Baso % (Auto) 0.8 % (0-2) 02/12/20 04:19 Absolute Neuts (auto) 9.6 10^3/uL (1.7-8.2) H 02/12/20 04:19 Absolute Lymphs (auto) 2.0 10^3/uL (0.5-4.7) 02/12/20 04:19 Absolute Monos (auto) 1.0 10^3/uL (0.1-1.4) 02/12/20 04:19 Absolute Eos (auto) 0.2 10^3/uL (0.0-0.6) 02/12/20 04:19 Absolute Basos (auto) 0.1 10^3/uL (0.0-0.2) 02/12/20 04:19 Total Counted 100 02/07/20 06:16 Seg Neutrophils % 74.1 % (42-78) 02/12/20 04:19 Seg Neuts % (Manual) 90 % (42-78) H 02/07/20 06:16 Lymphocytes % (Manual) 9 % (13-45) L 02/07/20 06:16 Monocytes % (Manual) 1 % (3-13) L 02/07/20 06:16 Eosinophils % (Manual) 0 % (0-6) 02/07/20 06:16 Basophils % (Manual) 0 % (0-2) 02/07/20 06:16 Abs Neuts (Manual) 24.3 10^3/uL (1.7-8.2) H 02/07/20 06:16 Abs Lymphs (Manual) 2.4 10^3/uL (0.5-4.7) 02/07/20 06:16 Abs Monocytes (Manual) 0.3 10^3/uL (0.1-1.4) 02/07/20 06:16 Absolute Eos (Manual) 0.0 10^3/uL (0.0-0.6) 02/07/20 06:16 Abs Basophils (Manual) 0.0 10^3/uL (0.0-0.2) 02/07/20 06:16 Clumped Platelets PRESENT 02/09/20 20:24 Platelet Comment ADEQUATE 02/12/20 04:19 Polychromasia SLIGHT 02/07/20 06:16 Hypochromasia SLIGHT 02/10/20 06:04 Poikilocytosis SLIGHT 02/12/20 04:19 Anisocytosis SLIGHT 02/12/20 04:19 Microcytosis 1+ 02/10/20 06:04 Target Cells 1+ 02/11/20 14:44 Ovalocytes SLIGHT 02/12/20 04:19 Schistocytes SLIGHT 02/12/20 04:19 Sodium 141.1 mmol/L (137-145) 02/12/20 04:19 Potassium 3.5 mmol/L (3.6-5.0) L 02/12/20 04:19 Chloride 108 mmol/L (98-107) H 02/12/20 04:19 Carbon Dioxide 22 mmol/L (22-30) 02/12/20 04:19 Anion Gap 11 (5-19) 02/12/20 04:19 BUN 3 mg/dL (7-20) L 02/12/20 04:19 Creatinine 0.96 mg/dL (0.52-1.25) 02/12/20 04:19 Est GFR ( Amer) > 60 (>60) 02/12/20 04:19 Est GFR (MDRD) Non-Af > 60 (>60) 02/12/20 04:19 Glucose 134 mg/dL (75-110) H 02/12/20 04:19 Calcium 8.7 mg/dL (8.4-10.2) 02/12/20 04:19 Total Bilirubin 0.4 mg/dL (0.2-1.3) 02/12/20 04:19 Direct Bilirubin 0.2 mg/dL (0.0-0.4) 02/12/20 04:19 Neonat Total Bilirubin Not Reportable 02/12/20 04:19 Neonat Direct Bilirubin Not Reportable 02/12/20 04:19 Neonat Indirect Bili Not Reportable 02/12/20 04:19 AST 27 U/L (14-36) 02/12/20 04:19 ALT 27 U/L (<35) 02/12/20 04:19 Alkaline Phosphatase 65 U/L (38-126) 02/12/20 04:19 Total Protein 6.1 g/dL (6.3-8.2) L 02/12/20 04:19 Albumin 3.0 g/dL (3.5-5.0) L 02/12/20 04:19 Urine Color YELLOW 02/06/20 02:00 Urine Appearance SLIGHTLY-CLOUDY 02/06/20 02:00 Urine pH 6.0 (5.0-9.0) 02/06/20 02:00 Ur Specific [place] 1.008 02/06/20 02:00 Urine Protein NEGATIVE mg/dL (NEGATIVE) 02/06/20 02:00 Urine Glucose (UA) NEGATIVE mg/dL (NEGATIVE) 02/06/20 02:00 Urine Ketones NEGATIVE mg/dL (NEGATIVE) 02/06/20 02:00 Urine Blood NEGATIVE (NEGATIVE) 02/06/20 02:00 Urine Nitrite NEGATIVE (NEGATIVE) 02/06/20 02:00 Urine Bilirubin NEGATIVE (NEGATIVE) 02/06/20 02:00 Urine Urobilinogen 4.0 mg/dL (<2.0) H 02/06/20 02:00 Ur Leukocyte Esterase NEGATIVE (NEGATIVE) 02/06/20 02:00 Urine WBC (Auto) 5 /HPF 02/06/20 02:00 Urine RBC (Auto) 1 /HPF 02/06/20 02:00 Squamous Epi Cells Auto 3 /HPF 02/06/20 02:00 Urine Mucus (Auto) RARE /LPF 02/06/20 02:00 Urine Ascorbic Acid NEGATIVE (NEGATIVE) 02/06/20 02:00 Time Trough Drawn 0950 02/10/20 09:50 Vancomycin Trough 14.7 ug/mL (5.0-20.0) 02/10/20 09:50 COVID-19 Source See comment 02/06/20 01:30 COVID-19 (MACHO) Not Detected (Not Detect) 02/06/20 01:30 Influenza A (Rapid) NEGATIVE (NEGATIVE) 02/06/20 01:30 Influenza A (RT-PCR) NEGATIVE (NEGATIVE) 02/08/20 09:40 Influenza B (Rapid) NEGATIVE (NEGATIVE) 02/06/20 01:30 Influenza B (RT-PCR) NEGATIVE (NEGATIVE) 02/08/20 09:40 RSV (RT-PCR) NEGATIVE (NEGATIVE) 02/08/20 09:40 SARS-CoV-2 Rap RNA(RT-PCR) NEGATIVE (NEGATIVE) 02/08/20 09:40 Impressions: Abdomen/Pelvis CT 02/05/20 23:25 IMPRESSION: 1. Patchy groundglass opacities in the lower lungs likely infectious in nature. Imaging features can be seen with viral or COVID 19 pneumonia, though are nonspecific and can occur with a variety of infectious and noninfectious processes. [PneInd] 2. Otherwise no acute abnormality. Chest X-Ray 02/05/20 23:26 IMPRESSION: 1. No acute pulmonary findings. Chest CT 02/07/20 00:00 IMPRESSION: Multifocal, peripheral, nodular groundglass infiltrate and consolidation bilaterally consistent with pneumonia. Commonly reported imaging features of COVID pneumonia are present. Other processes such as influenza pneumonia and organizing pneumonia, as can be seen with drug toxicity and connective tissue disease, can cause similar imaging pattern. [PneTyp] Chest X-Ray 02/10/20 00:00 IMPRESSION: Improving patchy opacities. Chest X-Ray 02/12/20 00:00 IMPRESSION: Minimal residual opacity at the right base.
[2020-02-12] MEDS: MELATONIN 5 MG TABLET PO PRN (22:12)
[2020-02-13] MEDS: PIPERACILLIN SODIUM/TAZOBACTAM 4.5 GM in NORMAL SALINE 100 ML IV SCH ×2 (00:14→05:43)
[2020-02-13] MEDS: ONDANSETRON HCL INJ/PF 4 MG/2 ML SDV IV PRN (05:43)
[2020-02-13] MEDS: PANTOPRAZOLE SODIUM 40 MG TABLET.DR PO SCH (05:43)
[2020-02-13] MEDS: VANCOMYCIN HCL 1,000 MG in DEXTROSE 5%-WATER 250 ML IV SCH (06:52)
[2020-02-13 08:38] VITALS: BP 128/74
[2020-02-13] MEDS: ASCORBIC ACID 500 MG TABLET PO SCH (09:13)
[2020-02-13] MEDS: CHOLECALCIFEROL (D3) 1,000 UNIT (25 MCG) TABLET PO SCH (09:13)
[2020-02-13] MEDS: ZINC SULFATE 220 MG CAPSULE PO SCH (09:14)
[2020-02-13] MEDS: ONDANSETRON 4 MG TAB.RAPDIS SL PRN (09:32)
[2020-02-13] MEDS: ENOXAPARIN SODIUM INJ 40 MG/0.4 ML DISP.SYRIN SUBCUT SCH (09:33)
--- NOTE | 2020-02-13 17:58 | PDOC DISCHARGE SUMMARY ---
Impression - Admit/DC Date/PCP Admission Date/Primary Care Provider: 02/06/20 03:55 JUAN SALOMON MD Discharge Date: 02/13/20 - Discharge Diagnosis (1) Bilateral pneumonia Is this a current diagnosis for this admission?: Yes (2) Acute hypoxemic respiratory failure Is this a current diagnosis for this admission?: Yes (3) Morbid obesity due to excess calories Is this a current diagnosis for this admission?: Yes (4) Personal history of colon cancer Is this a current diagnosis for this admission?: Yes (5) Nicotine dependence, cigarettes, uncomplicated Is this a current diagnosis for this admission?: Yes - Additional Information Resuscitation Status: Full Code Discharge Diet: As Tolerated Discharge Activity: Activity As Tolerated Referrals: JUAN SALOMON MD [Primary Care Provider] - Follow up as needed Home Medications: Amlodipine Besylate [Norvasc 10 mg Tablet] 10 mg PO DAILY 02/06/20 Hydrochlorothiazide 12.5 mg PO QAM 02/06/20 Nicotine [Nicoderm 21 mg/24 Hr Transderm Patch] 1 patch TD DAILY 02/06/20 History of Present Illiness History of Present Illness: DEANA MURRAY is a 54 year old female who presented to the ED with complaint about sinus congestion, sinus pressure, fever, and minimally productive cough. Patient reported associated wheezing, headache, nausea, vomiting, abdominal pain, and diarrhea. She denied any chest pain, palpitation, or dizziness. She reported coming to the ED today due to worsening symptoms. Her initial evaluation in the ED was significant the chest CT scan revealed bilateral groundglass opacities. Patient denied ever tested for COVID-19 or recent travel or exposure to acutely ill person. She demonstrated episodes of hypoxemia with associated tachycardia with exertion. She was advised hospitalization for further evaluation and management .. Hospital Course Hospital Course: Patient was admitted for the management of bilateral pneumonia, she was initially treated with IV antibiotic azithromycin and ceftriaxone. She was negative for SARS-CoV-2 infection ultimately the antibiotic was changed to Zosyn and vancomycin, there was immediate and dramatic change in patient's response .She was counseled again of the need for complete smoking cessation, she felt much better she wants to go home today, She also received supplemental oxygen via nasal cannula, bronchodilators DuoNeb Physical Exam Vital Signs: Temp Pulse Resp BP Pulse Ox 98.1 F 73 17 128/74 H 97 02/13/20 10:00 02/13/20 08:09 02/13/20 08:09 02/13/20 08:09 02/13/20 08:09 Intake & Output 02/12/20 02/13/20 02/14/20 06:59 06:59 06:59 Intake Total 3868 1730 Balance 3868 1730 Weight 95.7 kg 95.5 kg General appearance: PRESENT: no acute distress Eye exam: PRESENT: PERRLA Respiratory exam: PRESENT: clear to auscultation teresa Cardiovascular exam: PRESENT: +S1, +S2 GI/Abdominal exam: PRESENT: soft Neurological exam: PRESENT: alert, CN II-XII grossly intact Results Laboratory Results: WBC 13.0 10^3/uL (4.0-10.5) H 02/12/20 04:19 RBC 5.00 10^6/uL (3.72-5.28) 02/12/20 04:19 Hgb 13.2 g/dL (12.0-15.5) 02/12/20 04:19 Hct 37.9 % (36.0-47.0) 02/12/20 04:19 MCV 76 fl (80-97) L 02/12/20 04:19 MCH 26.3 pg (27.0-33.4) L 02/12/20 04:19 MCHC 34.8 g/dL (32.0-36.0) 02/12/20 04:19 RDW 14.6 % (11.5-14.0) H 02/12/20 04:19 Plt Count 241 10^3/uL (150-450) 02/12/20 04:19 Lymph % (Auto) 15.3 % (13-45) 02/12/20 04:19 [place] % (Auto) 8.1 % (3-13) 02/12/20 04:19 Eos % (Auto) 1.7 % (0-6) 02/12/20 04:19 Baso % (Auto) 0.8 % (0-2) 02/12/20 04:19 Absolute Neuts (auto) 9.6 10^3/uL (1.7-8.2) H 02/12/20 04:19 Absolute Lymphs (auto) 2.0 10^3/uL (0.5-4.7) 02/12/20 04:19 Absolute Monos (auto) 1.0 10^3/uL (0.1-1.4) 02/12/20 04:19 Absolute Eos (auto) 0.2 10^3/uL (0.0-0.6) 02/12/20 04:19 Absolute Basos (auto) 0.1 10^3/uL (0.0-0.2) 02/12/20 04:19 Total Counted 100 02/07/20 06:16 Seg Neutrophils % 74.1 % (42-78) 02/12/20 04:19 Seg Neuts % (Manual) 90 % (42-78) H 02/07/20 06:16 Lymphocytes % (Manual) 9 % (13-45) L 02/07/20 06:16 Monocytes % (Manual) 1 % (3-13) L 02/07/20 06:16 Eosinophils % (Manual) 0 % (0-6) 02/07/20 06:16 Basophils % (Manual) 0 % (0-2) 02/07/20 06:16 Abs Neuts (Manual) 24.3 10^3/uL (1.7-8.2) H 02/07/20 06:16 Abs Lymphs (Manual) 2.4 10^3/uL (0.5-4.7) 02/07/20 06:16 Abs Monocytes (Manual) 0.3 10^3/uL (0.1-1.4) 02/07/20 06:16 Absolute Eos (Manual) 0.0 10^3/uL (0.0-0.6) 02/07/20 06:16 Abs Basophils (Manual) 0.0 10^3/uL (0.0-0.2) 02/07/20 06:16 Clumped Platelets PRESENT 02/09/20 20:24 Platelet Comment ADEQUATE 02/12/20 04:19 Polychromasia SLIGHT 02/07/20 06:16 Hypochromasia SLIGHT 02/10/20 06:04 Poikilocytosis SLIGHT 02/12/20 04:19 Anisocytosis SLIGHT 02/12/20 04:19 Microcytosis 1+ 02/10/20 06:04 Target Cells 1+ 02/11/20 14:44 Ovalocytes SLIGHT 02/12/20 04:19 Schistocytes SLIGHT 02/12/20 04:19 Sodium 141.1 mmol/L (137-145) 02/12/20 04:19 Potassium 3.5 mmol/L (3.6-5.0) L 02/12/20 04:19 Chloride 108 mmol/L (98-107) H 02/12/20 04:19 Carbon Dioxide 22 mmol/L (22-30) 02/12/20 04:19 Anion Gap 11 (5-19) 02/12/20 04:19 BUN 3 mg/dL (7-20) L 02/12/20 04:19 Creatinine 0.96 mg/dL (0.52-1.25) 02/12/20 04:19 Est GFR ( Amer) > 60 (>60) 02/12/20 04:19 Est GFR (MDRD) Non-Af > 60 (>60) 02/12/20 04:19 Glucose 134 mg/dL (75-110) H 02/12/20 04:19 Calcium 8.7 mg/dL (8.4-10.2) 02/12/20 04:19 Total Bilirubin 0.4 mg/dL (0.2-1.3) 02/12/20 04:19 Direct Bilirubin 0.2 mg/dL (0.0-0.4) 02/12/20 04:19 Neonat Total Bilirubin Not Reportable 02/12/20 04:19 Neonat Direct Bilirubin Not Reportable 02/12/20 04:19 Neonat Indirect Bili Not Reportable 02/12/20 04:19 AST 27 U/L (14-36) 02/12/20 04:19 ALT 27 U/L (<35) 02/12/20 04:19 Alkaline Phosphatase 65 U/L (38-126) 02/12/20 04:19 Total Protein 6.1 g/dL (6.3-8.2) L 02/12/20 04:19 Albumin 3.0 g/dL (3.5-5.0) L 02/12/20 04:19 Urine Color YELLOW 02/06/20 02:00 Urine Appearance SLIGHTLY-CLOUDY 02/06/20 02:00 Urine pH 6.0 (5.0-9.0) 02/06/20 02:00 Ur Specific [place] 1.008 02/06/20 02:00 Urine Protein NEGATIVE mg/dL (NEGATIVE) 02/06/20 02:00 Urine Glucose (UA) NEGATIVE mg/dL (NEGATIVE) 02/06/20 02:00 Urine Ketones NEGATIVE mg/dL (NEGATIVE) 02/06/20 02:00 Urine Blood NEGATIVE (NEGATIVE) 02/06/20 02:00 Urine Nitrite NEGATIVE (NEGATIVE) 02/06/20 02:00 Urine Bilirubin NEGATIVE (NEGATIVE) 02/06/20 02:00 Urine Urobilinogen 4.0 mg/dL (<2.0) H 02/06/20 02:00 Ur Leukocyte Esterase NEGATIVE (NEGATIVE) 02/06/20 02:00 Urine WBC (Auto) 5 /HPF 02/06/20 02:00 Urine RBC (Auto) 1 /HPF 02/06/20 02:00 Squamous Epi Cells Auto 3 /HPF 02/06/20 02:00 Urine Mucus (Auto) RARE /LPF 02/06/20 02:00 Urine Ascorbic Acid NEGATIVE (NEGATIVE) 02/06/20 02:00 Time Trough Drawn 0950 02/10/20 09:50 Vancomycin Trough 14.7 ug/mL (5.0-20.0) 02/10/20 09:50 COVID-19 Source See comment 02/06/20 01:30 COVID-19 (MACHO) Not Detected (Not Detect) 02/06/20 01:30 Influenza A (Rapid) NEGATIVE (NEGATIVE) 02/06/20 01:30 Influenza A (RT-PCR) NEGATIVE (NEGATIVE) 02/08/20 09:40 Influenza B (Rapid) NEGATIVE (NEGATIVE) 02/06/20 01:30 Influenza B (RT-PCR) NEGATIVE (NEGATIVE) 02/08/20 09:40 RSV (RT-PCR) NEGATIVE (NEGATIVE) 02/08/20 09:40 SARS-CoV-2 Rap RNA(RT-PCR) NEGATIVE (NEGATIVE) 02/08/20 09:40 Impressions: Abdomen/Pelvis CT 02/05/20 23:25 IMPRESSION: 1. Patchy groundglass opacities in the lower lungs likely infectious in nature. Imaging features can be seen with viral or COVID 19 pneumonia, though are nonspecific and can occur with a variety of infectious and noninfectious processes. [PneInd] 2. Otherwise no acute abnormality. Chest X-Ray 02/05/20 23:26 IMPRESSION: 1. No acute pulmonary findings. Chest CT 02/07/20 00:00 IMPRESSION: Multifocal, peripheral, nodular groundglass infiltrate and consolidation bilaterally consistent with pneumonia. Commonly reported imaging features of COVID pneumonia are present. Other processes such as influenza pneumonia and organizing pneumonia, as can be seen with drug toxicity and connective tissue disease, can cause similar imaging pattern. [PneTyp] Chest X-Ray 02/10/20 00:00 IMPRESSION: Improving patchy opacities. Chest X-Ray 02/12/20 00:00 IMPRESSION: Minimal residual opacity at the right base. Stroke Is this a Stroke Patient?: No Acute Heart Failure Is this a Heart Failure Patient?: No
== END 2020-02-13 11:07 | disposition home or self-care (01) | DRG 193 ==
LOC: ER 22:35 → EH 02-06 03:55 → 3W 02-06 07:45 → 4S 02-07 18:13
PROVIDERS: ADMIT Internal Medicine; ATTEND Internal Medicine
DX: J18.9 Pneumonia, unspecified organism (principal); J96.01 Acute respiratory failure with hypoxia; Z85.038 Personal history of other malignant neoplasm of large intestine; F17.210 Nicotine dependence, cigarettes, uncomplicated; Z71.6 Tobacco abuse counseling; I10 Essential (primary) hypertension; M17.0 Bilateral primary osteoarthritis of knee; Z83.3 Family history of diabetes mellitus; Z82.49 Family history of ischemic heart disease and other diseases of the circulatory system; Z88.8 Allergy status to other drugs, medicaments and biological substances; Z20.828 Contact with and (suspected) exposure to other viral communicable diseases
CPT/HCPCS: 36415; 71045; 71250; 74177; 80053; 80202; 81001; 82565; 85025; 87040; 87635; 87804; 94640; 96361; 96374; 99285; 0241U; C9803; J0456; J0696; J1100; J1650; J2405; J2543; J3370; J3490; J7030; J7050; J7060; J7120; S0119

== ENCOUNTER → 2020-02-18 | Outpatient (CLI) | payer MEDICAID ==
--- NOTE | 2020-02-18 15:05 | RADIOLOGY REPORT (SQ) ---
EXAM DESCRIPTION: CHEST 2 VIEWS IMAGES COMPLETED DATE/TIME: 02/18/2020 2:46 pm REASON FOR STUDY: (J18.9)PNEUMONIA, UNSPECIFIED ORGANISM COMPARISON: AP view of the chest from 02/12/2020. EXAM PARAMETERS: NUMBER OF VIEWS: Two views. TECHNIQUE: PA and lateral views of the chest were obtained. RADIATION DOSE: NA LIMITATIONS: None. FINDINGS: LUNGS AND PLEURA: Unchanged patchy residual opacities in the inferior aspect of the right lung. There is no sizable pleural effusion or pneumothorax. MEDIASTINUM AND HILAR STRUCTURES: No mediastinal or hilar contour abnormality. HEART AND VASCULAR STRUCTURES: The cardiac silhouette is enlarged. BONES: No acute findings. HARDWARE: None in the chest. OTHER: No other finding. IMPRESSION: Cardiomegaly and unchanged patchy residual opacities in the inferior aspect of the right lung. TECHNICAL DOCUMENTATION: JOB ID: [id number] 2010 [employer]- All Rights Reserved Reading location - IP/workstation name: [email or web address]
== END ==
LOC: RAD 14:25
PROVIDERS: ATTEND Internal Medicine
DX: J18.9 Pneumonia, unspecified organism (principal); I51.7 Cardiomegaly
CPT/HCPCS: 71046